=== PATIENT | female | born 1950 | race Caucasian/White ===

== ENCOUNTER → 2018-07-31 10:42 | Outpatient (CLI) | payer MEDICARE, OTHER, SELFPAY ==
--- NOTE | 2018-07-31 | DI.MG.S_ITS ---
BILATERAL DIGITAL SCREENING MAMMOGRAM 3D/2D WITH CAD: 07/31/2018 CLINICAL: Routine screening. Comparison is made to exams dated: 06/01/2017 mammogram, 05/13/2016 mammogram, and 03/26/2015 mammogram - [facility]. There are scattered fibroglandular elements in both breasts. Current study was also evaluated with a Computer Aided Detection (CAD) system. No significant masses, calcifications, or other findings are seen in either breast. There has been no significant interval change. IMPRESSION: NEGATIVE There is no mammographic evidence of malignancy. A 1 year screening mammogram is recommended. This exam was interpreted at Station ID: [id number]. NOTE: For mammograms, a report in lay terms will be sent to the patient. Approximately 15% of breast malignancies will not be visualized mammographically. In the management of a palpable breast mass, a negative mammogram must not discourage biopsy of a clinically suspicious lesion. Electronically Signed By: Sukhi ynag/tiera:07/31/2018 11:29:45 copy to: Len Lewis letter sent: Normal Exam ACR BI-RADS Category 1: Negative 3341F
== END ==
PROVIDERS: PCP Family Medicine; Visit Provider Family Medicine
DX: Z12.31 Encounter for screening mammogram for malignant neoplasm of breast (principal)
CPT/HCPCS: 77063; 77067

== ENCOUNTER → 2019-03-01 08:35 | Outpatient (CLI) | payer MEDICARE, OTHER, SELFPAY ==
[2019-03-01 09:40] LABS: Add Manual Diff / Slide Review NO; Basophils Absolute Auto 100 /uL (0-100); Basophils Percent Auto 0.8 % (0-2); Eosinophils Absolute Auto 200 /uL (0-450); Eosinophils Percent Auto 3.5 % (2-4); Hematocrit 40.1 % (36-46); Hemoglobin 13.7 g/dL (12.0-16.0); Lymphocytes Absolute Auto 2200 /uL (1100-4500); Lymphocytes Percent Auto 31.2 % (25-40); Mean Corpuscular HGB Conc 34.3 % (30-36); Mean Corpuscular Hemoglobin 32.5 PG (26-34); Mean Corpuscular Volume 94.7 fL (80-100); Monocytes Absolute Auto 400 /uL (0-900); Monocytes Percent Auto 5.1 % (3-14); Neutrophils Absolute Auto 4100 /uL (1500-7000); Neutrophils Percent Auto 59.4 % (50-75); Platelet Count 219 X10^3/uL (150-400); Red Blood Cell Count 4.23 X10^6/uL (4.0-5.2); Red Cell Distribution Width 13.7 % (11.6-14.8); White Blood Cell Count 6.9 X10^3/uL (4.5-11.0)
[2019-03-01 09:45] LABS: Alanine Aminotransferase 24 IU/L (<35); Albumin 4.5 g/dL (3.5-5.0); Albumin Globulin Ratio 1.4 (1.0-2.8); Alkaline Phosphatase 92 U/L (38-126); Aspartate Aminotransferase 33 IU/L (14-36); BUN Creatinine Ratio 23.8 (6-22); Bilirubin Total 0.7 mg/dL (0.2-1.3); Blood Urea Nitrogen 19 mg/dL (7-17); Calcium 9.1 mg/dL (8.4-10.2); Carbon Dioxide 27 mmol/L (22-32); Chloride 106 mmol/L (98-107); Cholesterol 185 mg/dL (140-199); Estimated Glomerular Filt Rate > 60.0 mL/min (>60); Globulin 3.2 g/dL (1.7-4.1); Glucose 96 mg/dL (80-110); HDL Cholesterol 58 mg/dL (40-60); HEMOLYSIS 53 (0-50); LDL Cholesterol Calculated 100 mg/dL (<100); Potassium 4.2 mmol/L (3.4-5.1); Sodium 141 mmol/L (137-145); Total Protein 7.7 g/dL (6.3-8.2); Triglycerides 134 mg/dL (35-150)
== END ==
PROVIDERS: PCP Family Medicine; Visit Provider Family Medicine
DX: E03.9 Hypothyroidism, unspecified (principal)
CPT/HCPCS: 36415; 80053; 80061; 84443; 85025

== ENCOUNTER → 2020-01-29 16:47 | Outpatient (CLI) | payer MEDICARE, OTHER, SELFPAY ==
--- NOTE | 2020-01-29 | DI.MG.S_ITS ---
BILATERAL DIGITAL SCREENING MAMMOGRAM 3D/2D WITH CAD: 01/29/2020 CLINICAL: Routine screening. Comparison is made to exams dated: 07/31/2018 mammogram, 06/01/2017 mammogram, and 05/13/2016 mammogram - [facility]. There are scattered fibroglandular elements in both breasts. Current study was also evaluated with a Computer Aided Detection (CAD) system. No significant masses, calcifications, or other findings are seen in either breast. There has been no significant interval change. IMPRESSION: NEGATIVE There is no mammographic evidence of malignancy. A 1 year screening mammogram is recommended. This exam was interpreted at Station ID: [id number]. NOTE: For mammograms, a report in lay terms will be sent to the patient. Approximately 15% of breast malignancies will not be visualized mammographically. In the management of a palpable breast mass, a negative mammogram must not discourage biopsy of a clinically suspicious lesion. Electronically Signed By: Viridiana chase/tiera:02/04/2020 16:04:56 letter sent: Normal Exam ACR BI-RADS Category 1: Negative 3341F
== END ==
PROVIDERS: PCP Family Medicine; Referring Provider Family Medicine; Visit Provider Family Medicine
DX: Z12.31 Encounter for screening mammogram for malignant neoplasm of breast (principal)
CPT/HCPCS: 77063; 77067

== ENCOUNTER → 2020-02-11 08:18 | Outpatient (CLI) | payer MEDICARE, OTHER, SELFPAY ==
[2020-02-11 09:25] LABS: Add Manual Diff / Slide Review NO; Basophils Absolute Auto 100 /uL (0-100); Basophils Percent Auto 0.8 % (0-2); Eosinophils Absolute Auto 100 /uL (0-450); Eosinophils Percent Auto 1.9 % (2-4); Hematocrit 40.5 % (36-46); Hemoglobin 13.5 g/dL (12.0-16.0); Lymphocytes Absolute Auto 2100 /uL (1100-4500); Mean Corpuscular HGB Conc 33.4 % (30-36); Mean Corpuscular Hemoglobin 31.7 PG (26-34); Mean Corpuscular Volume 94.8 fL (80-100); Monocytes Absolute Auto 300 /uL (0-900); Monocytes Percent Auto 5.1 % (3-14); Neutrophils Absolute Auto 3900 /uL (1500-7000); Neutrophils Percent Auto 60.2 % (50-75); Platelet Count 217 X10^3/uL (150-400); Red Blood Cell Count 4.27 X10^6/uL (4.0-5.2); Red Cell Distribution Width 13.9 % (11.6-14.8); White Blood Cell Count 6.5 X10^3/uL (4.5-11.0)
[2020-02-11 09:44] LABS: Cholesterol 189 mg/dL (140-199); HDL Cholesterol 77 mg/dL (40-60); LDL Cholesterol Calculated 92 mg/dL (<100); Triglycerides 101 mg/dL (35-150)
== END ==
PROVIDERS: PCP Family Medicine; Referring Provider Family Medicine; Visit Provider Family Medicine
DX: E03.9 Hypothyroidism, unspecified (principal); Z13.220 Encounter for screening for lipoid disorders; Z13.6 Encounter for screening for cardiovascular disorders
CPT/HCPCS: 36415; 80061; 84443; 85025

== ENCOUNTER → 2020-06-08 13:24 | Outpatient (CLI) | payer MEDICARE, OTHER, SELFPAY ==
[2020-06-08 16:19] LABS: COVID19 -Nasal RAPID Negative (Negative)
== END ==
PROVIDERS: PCP Family Medicine; Visit Provider Physician Assistant
DX: Z01.812 Encounter for preprocedural laboratory examination (principal); Z20.822 Contact with and (suspected) exposure to COVID-19
CPT/HCPCS: 87635; C9803

== ENCOUNTER → 2020-06-09 12:54 | Outpatient (CLI) | payer MEDICARE, OTHER, SELFPAY ==
--- NOTE | 2020-06-09 12:58 | DI.NM.S_ITS ---
PROCEDURE: NM EXERCISE TREADMILL NON NUC COMPARISON: None. INDICATIONS: dyspnea with exertion FINDINGS: Patient exercised for 2 minutes and 50 seconds reaching 124bpm (slightly below target HR of 128bpm). She had dyspnea and chest discomfort at peak exercise. Unfortunately, the equipment malfunctioned and the ECG tracings became unavailable after peak exercise. IMPRESSION: Abnormal non-nuclear stress test with chest pain/dyspnea at peak exercise. ECG tracing unavailable after peak exercise due to equipment malfunction (but no obvious ECG changes at peak exercise). Recommend treadmill nuclear stress test for further evaluation. Dictated by: Chris Harris MD on 06/09/2020 at 16:42 Approved by: Chris Harris MD on 06/09/2020 at 16:44
== END ==
PROVIDERS: PCP Family Medicine; Referring Provider Family Medicine; Visit Provider Family Medicine
DX: R06.00 Dyspnea, unspecified (principal)
CPT/HCPCS: 93017

== ENCOUNTER → 2020-06-24 07:59 | Outpatient (CLI) | payer MEDICARE, OTHER, SELFPAY ==
--- NOTE | 2020-06-25 14:35 | PM.TREADMILL ---
Cardiac Stress Test Report Referral & Results Date Patient Seen: 06/25/20 Indication: Abnormal non nuclear stress test and dyspnea upon exertion Rest ECG: Unremarkable Procedure Note: Today following both written and verbal informed consent the patient was exercised according to a standard Edd protocol patient went for a total of 6 minutes 2 seconds achieving a maximum heart rate of 136 maximum systolic blood pressure of 166. This is approximately 7.0 METS. Exercise was terminated at this point because of targets were met. Patient was also given Cardiolite through a previously started Hep-Lock IV by the diagnostic imaging staff approximately 1 minute prior to the cessation of exercise. There are no ST-T segment changes Rare PVC during exercise Function aerobic impairment rated-25% on the sedentary scale No unusual symptoms from patient Impression: No evidence of ischemia based on usual ECG criteria Better than average exercise capacity Please see perfusion imaging report as well Please note: Actual ECG tracings can be found in the PACS system.
--- NOTE | 2020-06-25 18:22 | DI.NM.S_ITS ---
DATE OF SERVICE: 06/24/2020 PROCEDURE: Exercise perfusion study. INDICATIONS: Dyspnea on exertion. RADIOPHARMACEUTICAL: 26.7 millicurie technetium-99m Myoview IV was injected at stress and 27.0 millicurie technetium-99m Myoview IV was injected at rest. CARDIAC STRESS: The patient underwent exercise perfusion study under the supervision of an attending staff. She walked on Edd protocol for 6 minutes, 02 seconds and achieved 91 percent of target heart rate with normal blood pressure response. Peak blood pressure 166/60. The patient achieved 7 METs of workload and functional aerobic impairment 0 percent on active scale. Baseline rhythm was sinus. During stress, no convincing ischemic changes or significant arrhythmias seen, other than rare PVCs. No obvious symptoms were reported. RAW DATA: There is a large breast shadow seen. GATED STUDY: Resting LV ejection fraction 64 and stress LV ejection fraction 78 percent. Resting end-diastolic volume 91 mL. TID ratio 1.04, which is within normal limits. Lung/heart ratio 0.57, which is abnormal. MYOCARDIAL PERFUSION: Stress supine, resting supine and stress prone images were compared to each other. The stress and resting supine images revealed moderate-size, mild to moderately decreased perfusion of inferoapex, distal anterior wall, which got completely resolved during prone images, suggestive of breast tissue attenuation artifact. No convincing ischemia or infarction pattern seen. CONCLUSION: I will call this study a normal myocardial perfusion study with evidence of breast tissue attenuation artifact, which got resolved during prone images. The patient walked on Edd protocol for 6 minute and 02 seconds. Normal hemodynamic response. 7 METs of workload achieved. No ischemic electrocardiographic changes and no significant arrhythmias seen. The stress left ventricular ejection fraction 78 percent. Lung/heart ratio is 0.57, which is abnormal. Please get a 2D echo to make sure patient does not have any significant diastolic dysfunction or valvular pathology. Kim Francis - MEMO/brigette/roxy doc#: [id number]/job#: [id number] dd: 06/25/2020 17:19:00 dt: 06/25/2020 17:29:00 DICTATING MD/COPIES TO: Duglas Swanson MD COPIES MNE: LANDRY;
== END ==
PROVIDERS: PCP Family Medicine; Referring Provider Family Medicine; Visit Provider Family Medicine
DX: R94.39 Abnormal result of other cardiovascular function study (principal); R06.09 Other forms of dyspnea; Z20.822 Contact with and (suspected) exposure to COVID-19
CPT/HCPCS: 78452; 87635; 93016; 93017; 93018; C9803; A9502

== ENCOUNTER → 2020-06-24 09:40 | Outpatient (CLI) | payer MEDICARE, OTHER, SELFPAY ==
[2020-06-24 11:35] LABS: COVID19 -Nasal RAPID Negative (Negative)
== END ==
PROVIDERS: PCP Family Medicine; Visit Provider Student in an Organized Health Care Education/Training Program
DX: Z20.822 Contact with and (suspected) exposure to COVID-19 (principal)
CPT/HCPCS: 87635

== ENCOUNTER → 2020-07-09 14:48 | Outpatient (CLI) | payer MEDICARE, OTHER, SELFPAY ==
--- NOTE | 2020-07-09 14:51 | DI.ECHO.S_ITS ---
[facility]---------+ [facility] +---------+ : : [address] : : : : [id number] : : : : Phone: [phone]+ Echocardiogram Report + + :Name: OTILIO BURKETT Study Date: 07/09/2020 Height: 66 in : :[facility] ReadingLocation: Weight: 217 lb : : Gender: Female BSA: 2.1 m2 : :: 1950 Age: 70 yrs BP: 142/80 mmHg: :Reason For Study: CONCERN FOR DIASTOLIC DYSFUNCTION : :Ordering Physician: KIAH, : :MICHELLE Performed By: Kelley Canada : :Referring: MICHELLE DUPONT : + + Interpretation Summary Normal sinus rhythm. Normal LV size, wall thickness, wall motion and LV systolic function. EF is 60-65%. Normal diastolic function. Normal chamber sizes. No valvular abnormalities. No prior study available for comparison. Procedure: A two-dimensional transthoracic echocardiogram with color flow and Doppler was performed. The study quality was technically adequate. There is no prior echocardiogram noted for this patient. The patient was in sinus rhythm with heart rates between 57-73 bpm during the exam. Left Ventricle: The left ventricle is normal in size and wall thickness. The ejection fraction is estimated to be 60-65%. Diastolic parameters suggest probable normal left ventricular diastolic function and normal filling pressures. Right Ventricle: The right ventricle is normal in size and function. Atria: The left atrial size is normal. Right atrial size is normal. There is no Doppler evidence for an interatrial shunt. Mitral Valve: The mitral valve is normal in structure and function. There is trace mitral regurgitation. Aortic Valve: The aortic valve is trileaflet. The aortic valve opens well. There is no aortic valve stenosis. No aortic regurgitation is present. Tricuspid Valve: The tricuspid valve is normal in structure and function. There is mild tricuspid regurgitation. The right ventricular systolic pressure is estimated to be at least 27 mmHg based on an estimated right atrial pressure of 3 mm Hg. Pulmonic Valve: The pulmonic valve leaflets are thin and pliable; valve motion is normal. There is no pulmonic valvular regurgitation. Great Vessels: The aortic root is normal size. The dimensions of the ascending aorta are normal. The IVC is of normal diameter and collapses greater than 50% with a sniff. This suggests a low right atrial pressure of 3 mm Hg. Pericardium/ Pleura There is no pericardial effusion. There is no pleural effusion. MMode/2D Measurements & Calculations LVIDd: 5.4 cm LVOT diam: 2.0 cm LVIDs: 3.8 cm Ao root diam: 3.0 cm FS: 28.5 % asc Aorta Diam: 2.8 cm EPSS: 0.75 cm Ao Arch Diam (Prox Trans): 2.7 cm IVSd: 0.64 cm LVPWd: 0.68 cm LV rios. diameter/BSA (cm/m^2): 2.6 LV sys. diameter/BSA (cm/m^2): 1.9 LA A2 area: 18.0 cm2 RA long axis: 4.7 cm LA A4 area: 18.0 cm2 RA area: 13.9 cm2 LA length (vol): 4.7 cm RA vol: 34.8 ml LA vol: 58.4 ml RA : 16.8 ml/m2 LA vol index: 28.2 ml/m2 IVC diam: 0.96 cm RVD1 (basal): 2.9 cm TAPSE: 2.1 cm Doppler Measurements & Calculations Ao V2 max: 126.2 cm/sec LVOT Max Michael: 83.9 cm/sec Ao V2 mean: 89.2 cm/sec LV V1 max P.8 mmHg Ao max P.4 mmHg LV V1 VTI: 19.4 cm Ao mean P.5 mmHg MARK ANTHONY(I,D): 2.3 cm2 Ao V2 VTI: 26.5 cm MARK ANTHONY(V,D): 2.1 cm2 sev ratio: 0.73 MARK ANTHONY indexed to BSA (cm^2/m^2): 1.1 MV E max michael: 78.1 cm/sec TR max michael: 244.2 cm/sec MV A max michael: 100.1 cm/sec TR max P.9 mmHg MV E/A: 0.78 PA V2 max: 90.3 cm/sec Med Peak E' Michael: 9.6 cm/sec PA V2 mean: 66.1 cm/sec E/E' med: 8.1 PA mean P.9 mmHg Lat Peak E' Michael: 9.9 cm/sec PA pr(Accel): 8.8 mmHg E/E' lat: 7.9 E/e' average: 8.0 MV dec time: 0.21 sec SV(LVOT): 60.1 ml Electronically signed by: Betsy Lr M.D. on Reading Physician:07/10/2020 01:02 AM
== END ==
PROVIDERS: PCP Family Medicine; Referring Provider Family Medicine; Visit Provider Family Medicine
DX: I07.1 Rheumatic tricuspid insufficiency (principal); R06.00 Dyspnea, unspecified
CPT/HCPCS: 93306

== ENCOUNTER → 2020-12-01 15:41 | Outpatient (CLI) | payer MEDICARE, OTHER, SELFPAY ==
--- NOTE | 2020-12-01 | DI.RAD.S_ITS ---
PROCEDURE: XR FOOT LT MIN 3V INDICATIONS: LEFT FOOT PAIN TECHNIQUE: 3 views of the foot were acquired. COMPARISON: None. FINDINGS: Bones: Mildly displaced fracture of the base of the 5th proximal phalange. Fracture extends into the 5th MTP joint. Large plantar calcaneal bone spur. Soft tissues: No tibiotalar joint effusion. Achilles tendon appears normal. IMPRESSION: Intra-articular 5th proximal phalange fracture. Dictated by: Joan Traylor MD, PhD on 12/01/2020 at 17:14 Approved by: Joan Traylor MD, PhD on 12/01/2020 at 17:15
== END ==
PROVIDERS: PCP Family Medicine; Referring Provider Podiatrist; Visit Provider Podiatrist
DX: S92.512A Displaced fracture of proximal phalanx of left lesser toe(s), initial encounter for closed fracture (principal); X58.XXXA Exposure to other specified factors, initial encounter
CPT/HCPCS: 73630

== ENCOUNTER → 2021-02-05 10:40 | Outpatient (CLI) | payer MEDICARE, OTHER, SELFPAY ==
--- NOTE | 2021-02-05 | DI.MG.S_ITS ---
BILATERAL DIGITAL SCREENING MAMMOGRAM 3D/2D WITH CAD: 02/05/2021 CLINICAL: Routine screening. Comparison is made to exams dated: 01/29/2020 mammogram, 07/31/2018 mammogram, and 06/01/2017 mammogram - [facility]. The tissue of both breasts is predominantly fatty. Current study was also evaluated with a Computer Aided Detection (CAD) system. No significant masses, calcifications, or other findings are seen in either breast. There has been no significant interval change. IMPRESSION: NEGATIVE There is no mammographic evidence of malignancy. A 1 year screening mammogram is recommended. This exam was interpreted at Station ID: [id number]. NOTE: For mammograms, a report in lay terms will be sent to the patient. Approximately 15% of breast malignancies will not be visualized mammographically. In the management of a palpable breast mass, a negative mammogram must not discourage biopsy of a clinically suspicious lesion. Electronically Signed By: Mary newton/tiera:02/05/2021 17:00:57 letter sent: Normal Exam ACR BI-RADS Category 1: Negative 3341F
== END ==
PROVIDERS: PCP Family Medicine; Referring Provider Family Medicine; Visit Provider Family Medicine
DX: Z12.31 Encounter for screening mammogram for malignant neoplasm of breast (principal)
CPT/HCPCS: 77063; 77067

== ENCOUNTER → 2021-10-28 09:03 | Outpatient (CLI) | payer MEDICARE, OTHER, SELFPAY ==
--- NOTE | 2021-10-28 09:09 | DI.RAD.S_ITS ---
PROCEDURE: XR CHEST 2V INDICATIONS: chronic cough TECHNIQUE: 2 views of the chest were acquired. COMPARISON: None. FINDINGS: Surgical changes and devices: None. Lungs and pleura: Lungs are clear. No pleural effusions or pneumothorax. Mediastinum: Mediastinal contours are normal. Heart size is normal. Bones and chest wall: No suspicious bony abnormalities. Soft tissues appear unremarkable. IMPRESSION: No acute cardiopulmonary abnormalities or focal airspace disease. Dictated by: Sukhi Diana M.D. on 10/28/2021 at 12:00 Approved by: Sukhi Diana M.D. on 10/28/2021 at 12:00
[2021-10-28 11:46] LABS: Add Manual Diff / Slide Review NO; Basophils Absolute Auto 0 /uL (0-100); Basophils Percent Auto 0.6 % (0-2); Eosinophils Absolute Auto 200 /uL (0-450); Eosinophils Percent Auto 3.1 % (2-4); Hematocrit 38.6 % (36-46); Hemoglobin 13.2 g/dL (12.0-16.0); Lymphocytes Absolute Auto 1600 /uL (1100-4500); Lymphocytes Percent Auto 29.5 % (25-40); Mean Corpuscular HGB Conc 34.1 % (30-36); Mean Corpuscular Hemoglobin 33.2 PG (26-34); Mean Corpuscular Volume 97.5 fL (80-100); Monocytes Absolute Auto 400 /uL (0-900); Monocytes Percent Auto 6.7 % (3-14); Neutrophils Absolute Auto 3300 /uL (1500-7000); Neutrophils Percent Auto 60.1 % (50-75); Platelet Count 111 X10^3/uL (150-400); Red Blood Cell Count 3.97 X10^6/uL (4.0-5.2); Red Cell Distribution Width 14.7 % (11.6-14.8); White Blood Cell Count 5.5 X10^3/uL (4.5-11.0)
[2021-10-28 11:51] LABS: Alanine Aminotransferase 57 IU/L (<35); Albumin 3.8 g/dL (3.5-5.0); Albumin Globulin Ratio 1.2 (1.0-2.8); Alkaline Phosphatase 145 U/L (38-126); Aspartate Aminotransferase 71 IU/L (14-36); BUN Creatinine Ratio 23.6 (6-22); Bilirubin Total 0.7 mg/dL (0.2-1.3); Blood Urea Nitrogen 21 mg/dL (7-17); Calcium 8.8 mg/dL (8.4-10.2); Carbon Dioxide 26 mmol/L (22-32); Chloride 108 mmol/L (98-107); Cholesterol 193 mg/dL (140-199); Estimated Glomerular Filt Rate > 60 mL/min (>60); Globulin 3.3 g/dL (1.7-4.1); Glucose 97 mg/dL (80-110); HDL Cholesterol 63 mg/dL (40-60); HEMOLYSIS 15 (0-50); LDL Cholesterol Calculated 112 mg/dL (<100); Potassium 4.3 mmol/L (3.4-5.1); Sodium 141 mmol/L (137-145); Total Protein 7.1 g/dL (6.3-8.2); Triglycerides 90 mg/dL (35-150)
[2021-10-28 16:01] LABS: Free T4, Direct Thyroxine 1.19 ng/dL (0.78-2.19)
== END ==
PROVIDERS: PCP Family Medicine; Referring Provider Family Medicine; Visit Provider Family Medicine
DX: E03.9 Hypothyroidism, unspecified (principal); L30.9 Dermatitis, unspecified; R05.3 Chronic cough
CPT/HCPCS: 36415; 71046; 80053; 80061; 84439; 84443; 85025

== ENCOUNTER → 2021-11-12 13:37 | Outpatient (CLI) | payer MEDICARE, OTHER, SELFPAY ==
--- NOTE | 2021-11-12 13:38 | DI.US.S_ITS ---
PROCEDURE: US ABDOMEN LIMITED INDICATIONS: abnormal liver enzymes TECHNIQUE: Real-time scanning was performed of the abdominal and retroperitoneal organs, with image documentation. COMPARISON: None. FINDINGS: Liver: The liver demonstrates diffusely increased echotexture without focal abnormalities consistent with chronic hepatocellular disease/hepatic steatosis. Visualized main portal vein and hepatic veins appear patent. Gallbladder: Gallbladder is normal in sonographic appearance without gallstones, gallbladder wall thickening, pericholecystic fluid, or abnormal sonographic Stallings's. Biliary ducts: Intrahepatic bile ducts are non-dilated. Extrahepatic bile duct caliber measures 4 mm. Normal is 6-7 mm or less in diameter, or 10 mm or less post-cholecystectomy. Pancreas: Visualized portions of the pancreas are sonographically normal. IVC: Intrahepatic inferior vena cava is patent. Miscellaneous: No free abdominal fluid. IMPRESSION: Hepatic steatosis. Otherwise, unremarkable sonographic evaluation of the right upper quadrant. Dictated by: Sukhi Diana M.D. on 11/12/2021 at 14:35 Approved by: Sukhi Diana M.D. on 11/12/2021 at 14:36
== END ==
PROVIDERS: PCP Family Medicine; Referring Provider Family Medicine; Visit Provider Family Medicine
DX: R74.8 Abnormal levels of other serum enzymes (principal); E03.9 Hypothyroidism, unspecified; K76.0 Fatty (change of) liver, not elsewhere classified
CPT/HCPCS: 76705

== ENCOUNTER → 2021-12-28 08:52 | Outpatient (CLI) | payer MEDICARE, OTHER, SELFPAY ==
[2021-12-28 10:09] LABS: Add Manual Diff / Slide Review NO; Basophils Absolute Auto 0 /uL (0-100); Basophils Percent Auto 0.6 % (0-2); Eosinophils Absolute Auto 100 /uL (0-450); Eosinophils Percent Auto 2.7 % (2-4); Hematocrit 39.9 % (36-46); Hemoglobin 13.5 g/dL (12.0-16.0); Lymphocytes Absolute Auto 1300 /uL (1100-4500); Lymphocytes Percent Auto 26.5 % (25-40); Mean Corpuscular Hemoglobin 33.4 PG (26-34); Mean Corpuscular Volume 98.2 fL (80-100); Monocytes Absolute Auto 300 /uL (0-900); Monocytes Percent Auto 5.8 % (3-14); Neutrophils Absolute Auto 3300 /uL (1500-7000); Neutrophils Percent Auto 64.4 % (50-75); Platelet Count 97 X10^3/uL (150-400); Red Blood Cell Count 4.06 X10^6/uL (4.0-5.2); Red Cell Distribution Width 14.3 % (11.6-14.8); White Blood Cell Count 5.1 X10^3/uL (4.5-11.0)
[2021-12-28 10:37] LABS: Alanine Aminotransferase 60 IU/L (<35); Albumin 3.8 g/dL (3.5-5.0); Albumin Globulin Ratio 1.2 (1.0-2.8); Alkaline Phosphatase 134 U/L (38-126); Aspartate Aminotransferase 70 IU/L (14-36); BUN Creatinine Ratio 22.8 (6-22); Bilirubin Total 0.8 mg/dL (0.2-1.3); Blood Urea Nitrogen 18 mg/dL (7-17); Calcium 8.9 mg/dL (8.4-10.2); Carbon Dioxide 27 mmol/L (22-32); Chloride 107 mmol/L (98-107); Estimated Glomerular Filt Rate > 60 mL/min (>60); Globulin 3.3 g/dL (1.7-4.1); Glucose 96 mg/dL (80-110); HEMOLYSIS < 15 (0-50); Potassium 4.5 mmol/L (3.4-5.1); Sodium 139 mmol/L (137-145); Total Protein 7.1 g/dL (6.3-8.2)
[2021-12-28 11:07] LABS: TSH w/ Reflex to FT4 3.39 uIU/mL (0.47-4.68)
[2021-12-28 11:30] LABS: Hep C Virus Ab w/Reflex Quant NEGATIVE s/c (NEGATIVE)
[2021-12-29 23:36] LABS: HBsAg Screen Negative (Negative); Hepatitis A Antibody IgM Negative (Negative); Hepatitis B Core Antibody IgM Negative (Negative); Hepatitis C Antibody <0.1 s/co ratio (0.0-0.9)
== END ==
PROVIDERS: PCP Family Medicine; Referring Provider Family Medicine; Visit Provider Family Medicine
DX: E03.9 Hypothyroidism, unspecified (principal); R74.8 Abnormal levels of other serum enzymes; R94.5 Abnormal results of liver function studies
CPT/HCPCS: 36415; 80053; 80074; 84443; 85025; 86803

== ENCOUNTER → 2022-03-23 16:14 | Outpatient (CLI) | payer MEDICARE, OTHER, SELFPAY ==
--- NOTE | 2022-03-23 16:16 | DI.MG.S_ITS ---
BILATERAL DIGITAL SCREENING MAMMOGRAM 3D/2D WITH CAD: 03/23/2022 CLINICAL: Routine screening. Comparison is made to exams dated: 02/05/2021 mammogram, 01/29/2020 mammogram, 07/31/2018 mammogram, 06/01/2017 mammogram, and 05/13/2016 mammogram - [facility]. There are scattered areas of fibroglandular density in both breasts (category b / 25%-50% glandular tissue). Current study was also evaluated with a Computer Aided Detection (CAD) system. No significant masses, calcifications, or other findings are seen in either breast. There has been no significant interval change. IMPRESSION: NEGATIVE There is no mammographic evidence of malignancy. A 1 year screening mammogram is recommended. Based on the Tyrer Cuzick model (a risk assessment model) the patient's lifetime risk is 4.1% and her 10 year risk is 2.8%. According to the ACR, ACS, and NCCN guidelines, an annual breast MRI exam along with mammogram is recommended if the patient's lifetime risk is 20% or greater. This exam was interpreted at Station ID: [id number]. NOTE: For mammograms, a report in lay terms will be sent to the patient. Approximately 15% of breast malignancies will not be visualized mammographically. In the management of a palpable breast mass, a negative mammogram must not discourage biopsy of a clinically suspicious lesion. Electronically Signed By: Nigel Vergara M.D., jr/tiera:03/24/2022 13:30:47 letter sent: Normal Exam ACR BI-RADS Category 1: Negative 3341F
== END ==
PROVIDERS: PCP Family Medicine; Referring Provider Family Medicine; Visit Provider Family Medicine
DX: Z12.31 Encounter for screening mammogram for malignant neoplasm of breast (principal)
CPT/HCPCS: 77063; 77067

== ENCOUNTER → 2022-05-02 11:51 | Outpatient (CLI) | payer MEDICARE, OTHER, SELFPAY ==
--- NOTE | 2022-05-02 11:53 | DI.US.S_ITS ---
PROCEDURE: US PERIPH VENOUS LOW EXTREM LT INDICATIONS: Swelling, recent travel, please evaluate for DVT TECHNIQUE: Real-time imaging, as well as color and pulse Doppler interrogation, were performed of the lower extremity deep veins from the inguinal ligament to the popliteal fossa. COMPARISON: None. FINDINGS: The common femoral, femoral and popliteal veins are normally compressible, and free of intraluminal thrombus. Color and pulse Doppler demonstrate normal phasic intraluminal flow. There is normal augmentation response to distal compression maneuver. There is a mild amount of soft tissue edema seen at the level of the ankle. IMPRESSION: Negative for deep venous thrombosis. Dictated by: Masood Nunez M.D. on 05/02/2022 at 11:37 Approved by: Masood Nunez M.D. on 05/02/2022 at 11:37
[2022-05-02 13:12] LABS: Add Manual Diff / Slide Review NO; Basophils Absolute Auto 100 /uL (0-100); Basophils Percent Auto 1.1 % (0-2); Eosinophils Absolute Auto 200 /uL (0-450); Hematocrit 39.8 % (36-46); Hemoglobin 13.4 g/dL (12.0-16.0); Lymphocytes Absolute Auto 1500 /uL (1100-4500); Lymphocytes Percent Auto 26.2 % (25-40); Mean Corpuscular HGB Conc 33.6 % (30-36); Mean Corpuscular Hemoglobin 33.3 PG (26-34); Mean Corpuscular Volume 99.1 fL (80-100); Monocytes Absolute Auto 400 /uL (0-900); Monocytes Percent Auto 6.6 % (3-14); Neutrophils Absolute Auto 3600 /uL (1500-7000); Neutrophils Percent Auto 63.1 % (50-75); Platelet Count 88 X10^3/uL (150-400); Red Blood Cell Count 4.01 X10^6/uL (4.0-5.2); Red Cell Distribution Width 14.5 % (11.6-14.8); White Blood Cell Count 5.7 X10^3/uL (4.5-11.0)
[2022-05-02 13:32] LABS: Albumin 3.6 g/dL (3.5-5.0); Blood Urea Nitrogen 18 mg/dL (7-17); Calcium 8.5 mg/dL (8.4-10.2); Carbon Dioxide 24 mmol/L (22-32); Chloride 106 mmol/L (98-107); Estimated Glomerular Filt Rate > 60 mL/min (>60); Globulin 3.5 g/dL (1.7-4.1); Glucose 91 mg/dL (80-110); Lipase 180 U/L (23-300); Sodium 137 mmol/L (137-145); Total Protein 7.1 g/dL (6.3-8.2)
[2022-05-02 14:16] LABS: HEMOLYSIS 99 (0-50)
[2022-05-02 14:17] LABS: Aspartate Aminotransferase 77 IU/L (14-36); Potassium 4.2 mmol/L (3.4-5.1)
[2022-05-02 14:20] LABS: Alanine Aminotransferase 56 IU/L (<35); Alkaline Phosphatase 141 U/L (38-126)
== END ==
PROVIDERS: PCP Family Medicine; Referring Provider Family Medicine; Visit Provider Family Medicine
DX: M79.89 Other specified soft tissue disorders (principal); R19.5 Other fecal abnormalities; K76.0 Fatty (change of) liver, not elsewhere classified
CPT/HCPCS: 36415; 80053; 83690; 85025; 93971

== ENCOUNTER → 2022-05-09 08:41 | Outpatient (CLI) | payer MEDICARE, OTHER, SELFPAY ==
[2022-05-09 09:51] LABS: Add Manual Diff / Slide Review NO; Basophils Absolute Auto 0 /uL (0-100); Basophils Percent Auto 0.8 % (0-2); Eosinophils Absolute Auto 100 /uL (0-450); Eosinophils Percent Auto 3.2 % (2-4); Hematocrit 38.9 % (36-46); Hemoglobin 13.2 g/dL (12.0-16.0); Lymphocytes Absolute Auto 1300 /uL (1100-4500); Lymphocytes Percent Auto 28.5 % (25-40); Mean Corpuscular Hemoglobin 33.8 PG (26-34); Mean Corpuscular Volume 99.4 fL (80-100); Monocytes Absolute Auto 300 /uL (0-900); Monocytes Percent Auto 5.8 % (3-14); Neutrophils Absolute Auto 2900 /uL (1500-7000); Neutrophils Percent Auto 61.7 % (50-75); Platelet Count 104 X10^3/uL (150-400); Red Blood Cell Count 3.91 X10^6/uL (4.0-5.2); Red Cell Distribution Width 14.4 % (11.6-14.8); White Blood Cell Count 4.6 X10^3/uL (4.5-11.0)
[2022-05-09 10:18] LABS: Lactate Dehydrogenase 204 U/L (120-246)
== END ==
PROVIDERS: PCP Family Medicine; Referring Provider Family Medicine; Visit Provider Family Medicine
DX: D69.6 Thrombocytopenia, unspecified (principal)
CPT/HCPCS: 36415; 83615; 85025

== ENCOUNTER → 2022-05-11 12:07 | Outpatient (CLI) | payer MEDICARE, OTHER, SELFPAY | PROVIDERS: PCP Family Medicine; Referring Provider Family Medicine; Visit Provider Family Medicine | DX: R19.5 Other fecal abnormalities (principal) | CPT/HCPCS: 87045; 87899 ==

== ENCOUNTER → 2022-05-23 15:45 | Outpatient (CLI) | payer MEDICARE, OTHER, SELFPAY ==
--- NOTE | 2022-05-23 15:47 | DI.RAD.S_ITS ---
PROCEDURE: XR LUMBAR SPINE 2-3V INDICATIONS: chronic back pain with left-sided numbness. TECHNIQUE: 3 views of the lumbar spine were acquired. COMPARISON: [facility], , L-SPINE 2-3 VIEWS, 07/13/2015, 10:27. FINDINGS: Bones: 5 [id number] vertebrae are present. There is grade 1 anterolisthesis of L4 on L5 measuring 6 mm and L5 on S1 measuring 6 mm. Grade 1 retrolisthesis of L1 on L2 measuring 5 mm. No vertebral body compression fractures. No suspicious bony lesions. Mild multilevel disc space narrowing. There is prominent facet hypertrophy throughout the lumbar spine. Soft tissues: Overlying bowel gas pattern is normal. No suspicious soft tissue calcifications. IMPRESSION: Moderate multilevel spondylosis and degenerative spondylolisthesis with prominent facet hypertrophy. If indicated clinically, MRI could be performed for further evaluation. Approved by: Jed Love M.D. on 05/23/2022 at 20:16
== END ==
PROVIDERS: PCP Family Medicine; Referring Provider Family Medicine; Visit Provider Family Medicine
DX: M47.816 Spondylosis without myelopathy or radiculopathy, lumbar region (principal); M54.42 Lumbago with sciatica, left side; M43.16 Spondylolisthesis, lumbar region; G89.29 Other chronic pain
CPT/HCPCS: 72100

== ENCOUNTER → 2022-06-01 16:07 | Outpatient (CLI) | payer MEDICARE, OTHER, SELFPAY ==
--- NOTE | 2022-06-01 16:10 | DI.MRI.S_ITS ---
PROCEDURE: MR LUMBAR SPINE WO CON INDICATIONS: chronic back pain with left-sided numbness. TECHNIQUE: Noncontrast sagittal T1 spin echo and T2 fast echo, sagittal STIR, and T2 fast spin echo through the lumbar spine. In cases with scoliosis, additional coronal T2 fast spin echo may be performed. COMPARISON: [facility], CR, XR LUMBAR SPINE 2-3V, 05/23/2022, 15:51. FINDINGS: Image quality: Excellent. Alignment and Curvature: Trace degenerative anterolisthesis of L4 on L5. Bone Marrow: Marrow is of normal overall signal. No acute vertebral body compression fractures. Spinal Cord: Conus medullaris terminates at the L1 level. Visualized cord demonstrates normal signal and size. Paraspinous Soft Tissues: No paravertebral masses. T12-L1: Disc bulge. Mild facet hypertrophy. No canal stenosis or foraminal stenosis. L1-L2: Disc bulge. Facet hypertrophy. No canal stenosis. Moderate left foraminal narrowing with flattening deformity on the exiting left L1 nerve root. L2-L3: Minimal disc bulge. Prominent bilateral facet hypertrophy, left greater than right. Mild central canal stenosis. Oedw-pl-glcmdesw right foraminal narrowing. Moderate to severe left foraminal narrowing with a degree of left foraminal L2 nerve root impingement. L3-L4: Minimal disc bulge. Bilateral prominent facet hypertrophy. No canal stenosis. Mild bilateral foraminal narrowing. L4-L5: Disc bulge. Prominent facet hypertrophy. Epidural lipomatosis contributes to mild canal stenosis. Aphx-nc-xhzfzxgb bilateral foraminal narrowing. L5-S1: Prominent bilateral facet hypertrophy. No central canal stenosis. Moderate right foraminal narrowing with mild flattening deformity on the exiting right L5 nerve root. IMPRESSION: 1. There is prominent multilevel facet arthropathy. 2. At L2-L3, there is mild canal stenosis and moderate to severe left foraminal stenosis. 3. At L4-L5 there is mild canal stenosis. 4. Multilevel foraminal narrowing as described above. Dictated by: Rashid Hargrove M.D. on 06/02/2022 at 8:34 Approved by: Rashid Hargrove M.D. on 06/02/2022 at 8:42
== END ==
PROVIDERS: PCP Family Medicine; Referring Provider Family Medicine; Visit Provider Family Medicine
DX: M47.816 Spondylosis without myelopathy or radiculopathy, lumbar region (principal); M48.061 Spinal stenosis, lumbar region without neurogenic claudication; M48.07 Spinal stenosis, lumbosacral region; M54.42 Lumbago with sciatica, left side; G89.29 Other chronic pain
CPT/HCPCS: 72148

== ENCOUNTER → 2022-06-24 11:24 | Outpatient (CLI) | payer MEDICARE, OTHER, SELFPAY ==
--- NOTE | 2022-06-24 11:25 | DI.RAD.S_ITS ---
PROCEDURE: XR HIP W PEL IF DONE LT 2V INDICATIONS: Left hip pain TECHNIQUE: AP pelvis with lateral view(s) of the left hip(s). COMPARISON: None. FINDINGS: Bones: No fractures or dislocations. Pelvic ring appears intact. No suspicious bony lesions. Lower lumbar spondylosis. Osteoarthritic changes of the left femoroacetabular joint. No significant joint space loss identified. Soft tissues: The visualized bowel gas pattern is normal. No suspicious soft tissue calcifications. IMPRESSION: Left hip without acute fracture or malalignment. Degenerative changes of the left femoroacetabular joint and lower lumbar spine. Dictated by: Sukhi Diana M.D. on 06/24/2022 at 13:36 Approved by: Sukhi Diana M.D. on 06/24/2022 at 13:37
== END ==
PROVIDERS: PCP Family Medicine; Referring Provider Anesthesiology; Visit Provider Anesthesiology
DX: M25.552 Pain in left hip (principal)
CPT/HCPCS: 73502

== ENCOUNTER 2022-07-05 09:07 | Day surgery (SDC) | payer MEDICARE, OTHER, SELFPAY ==
[2022-07-05] VITALS (7 sets, daily range): BP systolic 98–128; BP diastolic 38–62; PULSE 62–71; RESP 11–17; TEMP 35.9–36.2; O2SAT 96–98; BMI 29.8
--- NOTE | 2022-07-05 | PATH_ITS ---
[facility] Accession Number: [id number] No. of containers..02 Tissue . 01 Material submitted: . PART A: colon - RANDOM COLON BIOPSIES PART B: colon - TRANSVERSE COLON POLYP . 01 Diagnosis: A. Random Colon, Biopsies: Colonic mucosa with no diagnostic abnormality. Negative for active, chronic, and microscopic colitis. Negative for dysplasia and malignancy. . B. Transverse Colon, Polyp, Biopsy: Tubular adenoma. [facility] 07/08/2022 1103 Local . 01 Electronically signed: . Yaritza Duque MD, Pathologist NPI- [id number] . 01 Gross description: . Part A: RANDOM COLON BIOPSIES: Received in formalin are 2 fragment(s) of morrow, soft tissue measuring 0.3 x 0.2 x 0.2 cm to 0.6 x 0.2 x 0.2 cm submitted entirely in 1 cassette(s) Part B: TRANSVERSE COLON POLYP: Received in formalin are 3 fragment(s) of morrow, soft tissue measuring 0.1 x 0.1 x 0.1 cm to 0.2 x 0.2 x 0.2 cm submitted entirely in 1 cassette(s) /JESSEE 07/06/20222028 Local . 01 Pathologist provided ICD-10: D12.3 . 01 CPT . 737762, [id number] Specimen Comment: A courtesy copy of this report has been sent to [phone] Performed at: 01 [facility] [address] [place] [address] [id number] MD Charles Panda MD Phone: [phone]
[2022-07-05] MEDS: LACTATED RINGERS 1,000 ML 200 ML IV (09:31)
--- NOTE | 2022-07-05 10:32 | P.HP_ITS ---
History of Present Illness History of Present Illness Date Patient Seen: 07/05/22 Chief complaint: Screening Colonoscopy Narrative: 72-year-old woman with chronic diarrhea for the past 6 months. She is here for diagnostic colonoscopy. Reports that diarrhea became significantly worse after long period of doxycycline treatment for rosacea. She would a colonoscopy 9 years ago which was normal. No family history of colon cancer in first-degree relatives. No abdominal pain nausea vomiting. Occasionally has blood per rectum. [facility] Medical History Ankle pain (~2016) Chicken pox Dyspnea on exertion Dyspnea on exertion Eczema (~2019) Left hip pain Measles Rosacea (~2017) Thrombocytopenia Uterine prolapse Surgical History Anesthesia History of third molar tooth extraction History of vaginal delivery (~1972) Family History Father Diabetes mellitus History of heart disease Diverticulitis Mother Mental health problem Dementia Stroke Brother Diverticulitis Family/Other Brain abscess Social History household members: spouse Smoking Status: Never smoker alcohol intake: current Meds Home Medications and Allergies Home Medications Medication Instructions Recorded Confirmed Type naproxen sodium 220 mg tablet 220 mg PO BIDP ##0 02/07/12 06/21/22 History (Aleve) latanoprost 0.005 % eye drops EYE-BOTH DAILY 01/29/19 06/21/22 History metronidazole 0.75 % lotion 1 applic topical BID 08/17/21 06/21/22 History ruxolitinib 1.5 % topical cream 1 applic topical BID 08/17/21 06/21/22 History (Opzelura) levothyroxine 88 mcg tablet See Rx Instructions .Route 06/13/22 06/21/22 Rx .COMPLEX #90 tabs Allergies Allergy/AdvReac Type Severity Reaction Status Date / Time avocado Allergy Severe swelling Verified 07/05/22 09:39 acetaminophen [ACETAMINOPHEN] Allergy Unknown SEVERE Verified 06/21/22 09:14 GROGGINESS diphenhydramine Allergy Unknown SEVERE Verified 06/21/22 09:14 [DIPHENHYDRAMINE] GROGINESS ibuprofen [IBUPROFEN] Allergy Unknown RASH Verified 06/21/22 09:14 Exam Vital Signs (past 8 hours): - 07/05/22 09:20 Temperature 96.6 F L Pulse Rate 64 Respiratory Rate 17 Blood Pressure 122/62 Pulse Oximetry 98 Oxygen Delivery Method Room Air Oxygen Delivery Method Room Air Narrative Exam Narrative: General adult woman alert oriented no acute distress Assessment & Plan Assessment and plan (1) Loose stools: Status: Acute Assessment & Plan narrative: 72-year-old with chronic diarrhea here for diagnostic colonoscopy. Technical details were discussed. Risks, benefits, alternatives explained. Risks including but not limited to myocardial infarction, aspiration, bleeding, pain, missed lesion, incomplete examination, need for further radiographic studies, colonic perforation, and need for major abdominal surgery were discussed. All questions were answered to their satisfaction, and they are in agreement with this plan.
--- NOTE | 2022-07-05 11:05 | P.OP.COLON_ITS ---
Operative Date/Time/Diagnoses Date of procedure: 07/05/22 Time of procedure: 11:05 Pre-op diagnosis: Diarrhea Post-op diagnosis: other (Colonic polyp x1) Procedure & Clinicians Study performed: Diagnostic colonoscopy Same procedure as scheduled: Yes Indications: 72-year-old woman with 6 months of loose stool here for diagnostic colonoscopy Procedure Notes Procedure in detail: The history and physical was performed/updated and the patient is ASA class is 2. The procedure was discussed in detail with the patient. Potential risks complications including infection, bleeding, missed diagnosis, perforation, need for surgery, and were explained. Their questions were answered and informed consent was obtained. Patient was brought to the procedure room and placed standard monitoring equipment. The patient's vital signs were monitored continuously throughout the entire procedure. Prior to starting time-out was performed. The patient was placed in the left lateral recumbent position. Procedural sedation was administered by anesthesia. Examination began with a thorough inspection of the perianal area there was no evidence of fissures, fistulae, external hemorrhoids or cutaneous malignancy. The colonoscopy scope was then placed into the anal c anal and was advanced to the cecum, which was identified by the ileocecal valve, the appendiceal orifice and the confluence of the taenia. The scope was then slowly withdrawn examining colon thoroughly in all directions, irrigating it of any residual stool. Within the transverse colon a 5 mm polyp was identified and removed with biopsy forceps in its entirety. Random colonic biopsies throughout the colon were performed with forceps. The sigmoid colon was notable for moderate degree diverticulosis. No masses or significant inflammation The patient tolerated the procedure well. They will be discharged once criteria are met. The prep was of good/excellent quality. The withdrawl time was 6 minutes. Specimen(s): other (Transverse colon polyp, random colonic biopsies) Impression: Colonic polyp x1 Post-procedure Recommendations: High fiber diet Plan for aftercare: Follow-up is dependent on pathology findings Disposition: same day surgery
== END 2022-07-05 11:45 | disposition home or self-care (01) ==
PROVIDERS: PCP Family Medicine; Referring Provider Surgery; Visit Provider Surgery
PROC: 0DJD8ZZ Inspection of Lower Intestinal Tract, Via Natural or Artificial Opening Endoscopic (ICD-10-PCS; CPT 45378; principal; 2022-07-05 10:15)
DX: D12.3 Benign neoplasm of transverse colon (principal); K57.30 Diverticulosis of large intestine without perforation or abscess without bleeding; R19.7 Diarrhea, unspecified
CPT/HCPCS: 45380; J2704; J3010

== ENCOUNTER → 2022-07-19 13:43 | Outpatient (CLI) | payer MEDICARE, OTHER, SELFPAY ==
[2022-07-19 15:44] LABS: HEMOLYSIS < 15 (0-50); Iron 75 ug/dL (37-170)
[2022-07-19 15:50] LABS: Alanine Aminotransferase 58 IU/L (<35); Albumin 3.6 g/dL (3.5-5.0); Albumin Globulin Ratio 1.2 (1.0-2.8); Alkaline Phosphatase 176 U/L (38-126); Aspartate Aminotransferase 74 IU/L (14-36); BUN Creatinine Ratio 23.5 (6-22); Bilirubin Total 0.6 mg/dL (0.2-1.3); Blood Urea Nitrogen 19 mg/dL (7-17); C-Reactive Protein Quant 1.2 mg/dL (<1.0); Calcium 8.6 mg/dL (8.4-10.2); Carbon Dioxide 25 mmol/L (22-32); Chloride 109 mmol/L (98-107); Estimated Glomerular Filt Rate > 60 mL/min (>60); Glucose 94 mg/dL (80-110); HEMOLYSIS < 15 (0-50); Sodium 140 mmol/L (137-145); Total Protein 6.6 g/dL (6.3-8.2)
[2022-07-19 15:55] LABS: Percent Iron Saturation 31 % (15-50); Total Iron Binding Capacity 244 ug/dL (265-497); Transferrin 175 mg/dL (206-381)
[2022-07-20 04:01] LABS: Alpha 1 Anti Trypsin 25 mg/dL (101-187); Immunoglobulin A 223 mg/dL (64-422)
[2022-07-20 18:23] LABS: t-Transglutaminase IgA <2 U/mL (0-3)
[2022-07-21 13:09] LABS: Smooth Muscle Antibody 20 Units (0-19)
[2022-07-24 18:22] LABS: ANA Screen, IFA Positive (.)
== END ==
PROVIDERS: PCP Family Medicine; Referring Provider Internal Medicine Gastroenterology; Visit Provider Internal Medicine Gastroenterology
DX: R74.8 Abnormal levels of other serum enzymes (principal); K76.0 Fatty (change of) liver, not elsewhere classified; R19.7 Diarrhea, unspecified
CPT/HCPCS: 36415; 80053; 82103; 82390; 82784; 83516; 83540; 83550; 86038; 86140; 86376

== ENCOUNTER → 2022-07-20 09:50 | Outpatient (CLI) | payer MEDICARE, OTHER, SELFPAY ==
[2022-07-20 12:31] LABS: Adenovirus F 40/41 Not Detected (Not Detect); Astrovirus Not Detected (Not Detect); Campylobacter Not Detected (Not Detect); Clostridium difficile toxin AB Not Detected (Not Detect); Cryptosporidium Not Detected (Not Detect); Cyclospora cayetanensis Not Detected (Not Detect); Entamoeba histolytica Not Detected (Not Detect); Enteroaggregative E.coli Not Detected (Not Detect); Enteropathogenic E.coli Not Detected (Not Detect); Enterotoxigenic E.coli It/st Not Detected (Not Detect); Giardia lamblia Not Detected (Not Detect); Norovirus GI/GII Not Detected (Not Detect); Plesiomonsa shigelloides Not Detected (Not Detect); Rotavirus A Not Detected (Not Detect); Salmonella Not Detected (Not Detect); Sapovirus Not Detected (Not Detect); Shiga-like toxin-prod E.coli Not Detected (Not Detect); Shigella/Enteroinvasive E.coli Not Detected (Not Detect); Vibrio Not Detected (Not Detect); Vibrio cholerae Not Detected (Not Detect); Yersinia enterocolitica Not Detected (Not Detect)
== END ==
PROVIDERS: PCP Family Medicine; Referring Provider Internal Medicine Gastroenterology; Visit Provider Internal Medicine Gastroenterology
DX: R74.8 Abnormal levels of other serum enzymes (principal); K76.0 Fatty (change of) liver, not elsewhere classified; R19.7 Diarrhea, unspecified
CPT/HCPCS: 87507

== ENCOUNTER → 2022-08-22 12:51 | Outpatient (CLI) | payer MEDICARE, OTHER, SELFPAY ==
[2022-08-23 04:46] LABS: Immunoglobulin M, Quantitative 261 mg/dL (26-217)
[2022-08-24 12:36] LABS: Anti Mitochondrial ABY IGG <20.0 Units (0.0-20.0)
== END ==
PROVIDERS: Family Provider Family Medicine; PCP Family Medicine; Referring Provider Internal Medicine Gastroenterology; Visit Provider Internal Medicine Gastroenterology
DX: R74.8 Abnormal levels of other serum enzymes (principal); K76.0 Fatty (change of) liver, not elsewhere classified
CPT/HCPCS: 36415; 82104; 82784; 83516

== ENCOUNTER 2022-09-22 12:30 | Outpatient (RCR) | payer MEDICARE, OTHER, SELFPAY ==
--- NOTE | 2022-09-14 16:35 | PT.OIE ---
Current Diagnoses Other chronic pain (09/14/22) Pain in left hip (09/14/22) Lumbago with sciatica, left side (09/14/22) Past Medical History (Last Reviewed 07/05/22 @ 10:33 by Haroldo Mcmahan MD) Ankle pain (~2016) Chicken pox Dyspnea on exertion Dyspnea on exertion Eczema (~2019) Left hip pain Measles Rosacea (~2017) Thrombocytopenia Uterine prolapse Past Surgical History (Last Reviewed 07/05/22 @ 10:33 by Haroldo Mcmahan MD) Anesthesia History of third molar tooth extraction History of vaginal delivery (~1972) Visit Care Team Role Provider Type Louis Gutierrez MD Family Provider Physician Primary Care Provider Specialty: Family Practice Address: [address] [place] [address], [id number] Email: [email or web address] Robbie Augustin MD Attending Provider Physician Referring Provider Specialty: Anesthesiology Pain Management Address: [address] [place] [address], [id number] Email: [email or web address] Physical Therapy Initial Evaluation PT-OP-A Visit Information Start: 09/13/22 16:51 Freq: Status: Active Protocol: Document 09/14/22 09:36 [facility] (Rec: 09/14/22 10:28 [facility] [id number]) Out-Patient Physical Therapy Visit Information Visit Information Visit Type Initial Evaluation Visit Start Time 09:37 Visit Stop Time 10:25 Total Visit Minutes 48 Visit Number 1 Evaluation Information Evaluation Date 09/14/22 Precautions Precautions severely prolapsed uterus; pessary not effective, has been told not to do pelvic floor exercises as it may worsen PT-OP-B Current Condition Start: 09/13/22 16:51 Freq: Status: Active Protocol: Document 09/14/22 09:36 [facility] (Rec: 09/14/22 10:28 [facility] [id number]) Current Condition History of Current Condition Onset Date 1 year Current Complaints left lateral leg pain. 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 Onset of pain and swelling in left leg. Still gets some swelling left, pain is worst problem. Difficult to sleep. 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 No HEP, doesn't like to even just take walks. Has extreme prolapsed uterus. Also having intestinal issues, has lost over 20 lbs since last December . Has fatty liver. Numbness left foot. Gets cramps in anterior lower legs. Prefers heat to ice. Prior Treatments and Tests MRI: bulging discus, arthritis spine and left. Future Testing and Treatments Planned Sees Dr. Yuen September 27 regarding intestinal issues. Prior Functional Status Baseline Function- ADL's Independent Baseline Function- Mobility Independent Baseline Function- Gait indep Current Functional Impairments (Reported) Functional Limitations- ADL's pain Functional Limitations- Mobility/Gait pain Personal Factors Other Personal Factors That May Effect prolonged sitting daily Therapy/Recovery PT-OP-G Mobility & Gait Start: 09/13/22 16:51 Freq: Status: Active Protocol: Document 09/14/22 09:36 [facility] (Rec: 09/14/22 10:28 [facility] [id number]) OP Gait Assessment Gait Gait Assistance Required: Independent Assistive Devices Assistive Device None Gait Deviations General Gait Pattern Antalgic,Flexed Trunk Factors Limiting Gait Function Factors Limiting Gait Function Pain PT-OP-J Posture/Palpation/Skin Start: 09/13/22 16:51 Freq: Status: Active Protocol: Document 09/14/22 09:36 [facility] (Rec: 09/14/22 10:28 [facility] [id number]) Posture Evaluation Position Standing Head/C-Spine Posture Forward Head L-Spine Posture Increased Lordosis Scapula Posture (L) Protracted,(R) Protracted Arm Posture (L) Internally Rotated,(R) Internally Rotated Pelvis Posture Anteriorly Tilted Hip Posture (L) Externally Rotated,(R) Externally Rotated Palpation Assessment Location lumbar spine Palpation Findings Tenderness IT band Palpation Findings Tenderness PT-OP-K Range of Motion Start: 09/13/22 16:51 Freq: Status: Active Protocol: Document 09/14/22 09:36 [facility] (Rec: 09/14/22 10:28 [facility] [id number]) Lumbar Spine Range of Motion Lumbar Spine Active Flexion 90 Extension 10 Rotation Left 20 Rotation Right 20 Lateral Flexion Left 30 Lateral Flexion Right 30 Hip Goniometric Range of Motion Hip hemal Hip ROM WFL Yes PT-OP-M Strength Start: 09/13/22 16:51 Freq: Status: Active Protocol: Document 09/14/22 09:36 [facility] (Rec: 09/14/22 10:28 [facility] [id number]) Hip Strength Hip Manual Muscle Testing Left Flexion (L2) 4 Good Extension (S1) 3+ Fair+ Abduction 3+ Fair+ Adduction 4 Good External Rotation 3+ Fair+ Internal Rotation 3+ Fair+ Right Flexion (L2) 4 Good Extension (S1) 3+ Fair+ Abduction 4- Good- Adduction 4 Good External Rotation 4- Good- Internal Rotation 4- Good- Knee Strength Knee Manual Muscle Testing Right Flexion (S2) 4+ Good+ Extension (L3) 4+ Good+ Left Flexion (S2) 4 Good Extension (L3) 4 Good Ankle/Foot Strength Ankle and Foot Manual Muscle Testing Right Dorsiflexion (L4) 4+ Good+ Plantarflexion (S1) 4+ Good+ Left Dorsiflexion (L4) 4+ Good+ Plantarflexion (S1) 4+ Good+ PT-OP-Q Treatments Start: 09/13/22 16:51 Freq: Status: Active Protocol: Document 09/14/22 09:36 [facility] (Rec: 09/14/22 17:58 [facility] [id number]) Self-Care/Home Management Treatment Education Patient Education Body Mechanics,Joint Protection,Posture Other Education bed positioning; issued IPA handout need for improved sitting alignment in chair, more frequent change in positions, use swivel on chair instead of twisting and reaching PT-OP-T Assessment and Plan Start: 09/13/22 16:51 Freq: Status: Active Protocol: Document 09/14/22 09:36 [facility] (Rec: 09/14/22 18:06 [facility] [id number]) Physical Therapy Assessment Rehab Potential Rehabilitation Potential Good Evaluation Complexity Number of Personal Factors/Comorbidities 1-2 Number of Body Systems Impaired 3 Clinical Presentation at Evaluation Evolving Impairments Impairments Activity Tolerance,Pain, Strength Goals Three Impairment 25% impairment in left LE function per LEFS Senior Care Goal (LTG) Decrease reported score to no greater than 10% as measure of improved activity tolerance and function LTG Duration 11/15/22 Two Impairment weakness core and LE's left greater than right Short Term Goal (STG) patient to be instructed in HEP to address above impairments for improved function STG Duration 10/15/22 Senior Care Goal (LTG) patient to be independent and compliant to HEP and demonstrate improved strength to at least 4+/5 all muscle groups for improved functional activity tolerance LTG Duration 11/15/22 One Impairment interrupted sleep due to left lateral LE pain Short Term Goal (STG) Patient to be instructed in correct body positioning and support strategies for back and hip protection STG Duration 10/04/22 Surface Grinder Goal (LTG) Patient to report able to sleep through the night without being woken due to pain LTG Duration 11/15/22 Assessment Summary Assessment Patient presented to PT with c /o lateral left LE pain since April 2022. Has had history of back pain and leg pain intermittantly over the years. Had MRI which showed: 1. There is prominent multilevel facet arthropathy. 2. At L2-L3, there is mild canal stenosis and moderate to severe left foraminal stenosis. 3. At L4-L5 there is mild canal stenosis. 4. Multilevel foraminal narrowing x-ray of pelvis and left hip showed degenerative changes of the left femoroacetabular joint and lower lumbar spine. Patient dysfunction complicated by severely prolapsed uterus for which she has had unsuccessful conservative treatment, states she has been told not to do any kegel or other tightening exercises. We discussed her habitual posture likely contributing to her pain which is sitting at her desk all day bent over and the body mechanics she uses at her desk often reaching for objects Also instructed her in correct alignment and support when sleeping for back and hip protection. Patient reported decrease in pain with manual lumbar traction Physical Therapy Plan Frequency and Duration Frequency of Treatment 2x/Week Duration of treatment (weeks) 8 Plan of Care Start Date 09/14/22 Plan of Care End Date 11/15/22 Therapeutic Interventions Therapeutic Interventions Home Exercise Program,Manual Therapy,Patient/Caregiver Education,Self-Care/Home Management,Soft Tissue Mobilization,Taping, Therapeutic Activities, Therapeutic Exercises Modalities Electric Stimulation,Hot Packs ,Infrared Therapy, Iontophoresis,Traction- Mechanical,Ultrasound Next Visit Focus/Plan Next Note Type Treatment Note Next Visit Plan review sleeping positions as instructed, body mechanics especially related to sitting at desk, need for frequent change in positions. Ther ex for core strengthening , LE strengthening. Manual traction.
--- NOTE | 2022-09-14 16:36 | PT.OPPOC ---
Physical, Occupational & Speech Therapy At [facility] Current Diagnoses Other chronic pain (09/14/22) Pain in left hip (09/14/22) Lumbago with sciatica, left side (09/14/22) Visit Care Team Role Provider Type Louis Gutierrez MD Family Provider Physician Primary Care Provider Specialty: Family Practice Address: [address] [place] [address], [id number] Email: [email or web address] Robbie Augustin MD Attending Provider Physician Referring Provider Specialty: Anesthesiology Pain Management Address: [address] [place] [address], [id number] Email: [email or web address] Plan Of Care PT-OP-T Assessment and Plan Start: 09/13/22 16:51 Freq: Status: Active Protocol: Document 09/14/22 09:36 [facility] (Rec: 09/14/22 18:06 [facility] [id number]) Physical Therapy Assessment Rehab Potential Rehabilitation Potential Good Evaluation Complexity Number of Personal Factors/Comorbidities 1-2 Number of Body Systems Impaired 3 Clinical Presentation at Evaluation Evolving Impairments Impairments Activity Tolerance,Pain, Strength Goals Three Impairment 25% impairment in left LE function per LEFS Breeder [employer] Service Technician Goal (LTG) Decrease reported score to no greater than 10% as measure of improved activity tolerance and function LTG Duration 11/15/22 Two Impairment weakness core and LE's left greater than right Short Term Goal (STG) patient to be instructed in HEP to address above impairments for improved function STG Duration 10/15/22 Breeder Hen Service Technician Goal (LTG) patient to be independent and compliant to HEP and demonstrate improved strength to at least 4+/5 all muscle groups for improved functional activity tolerance LTG Duration 11/15/22 One Impairment interrupted sleep due to left lateral LE pain Short Term Goal (STG) Patient to be instructed in correct body positioning and support strategies for back and hip protection STG Duration 10/04/22 Intermediate Goal (LTG) Patient to report able to sleep through the night without being woken due to pain LTG Duration 11/15/22 Assessment Summary Assessment Patient presented to PT with c /o lateral left LE pain since April 2022. Has had history of back pain and leg pain intermittantly over the years. Had MRI which showed: 1. There is prominent multilevel facet arthropathy. 2. At L2-L3, there is mild canal stenosis and moderate to severe left foraminal stenosis. 3. At L4-L5 there is mild canal stenosis. 4. Multilevel foraminal narrowing x-ray of pelvis and left hip showed degenerative changes of the left femoroacetabular joint and lower lumbar spine. Patient dysfunction complicated by severely prolapsed uterus for which she has had unsuccessful conservative treatment, states she has been told not to do any kegel or other tightening exercises. We discussed her habitual posture likely contributing to her pain which is sitting at her desk all day bent over and the body mechanics she uses at her desk often reaching for objects Also instructed her in correct alignment and support when sleeping for back and hip protection. Patient reported decrease in pain with manual lumbar traction Physical Therapy Plan Frequency and Duration Frequency of Treatment 2x/Week Duration of treatment (weeks) 8 Plan of Care Start Date 09/14/22 Plan of Care End Date 11/15/22 Therapeutic Interventions Therapeutic Interventions Home Exercise Program,Manual Therapy,Patient/Caregiver Education,Self-Care/Home Management,Soft Tissue Mobilization,Taping, Therapeutic Activities, Therapeutic Exercises Modalities Electric Stimulation,Hot Packs ,Infrared Therapy, Iontophoresis,Traction- Mechanical,Ultrasound Next Visit Focus/Plan Next Note Type Treatment Note Next Visit Plan review sleeping positions as instructed, body mechanics especially related to sitting at desk, need for frequent change in positions. Ther ex for core strengthening , LE strengthening. Manual traction. Plan of Care Dates Plan of Care Start Date 09/14/22 Plan of Care End Date 11/15/22 Electronically Signed by: Val Loyola, PT 09/15/22 [id number] If you are in agreement with this Plan of Care, please return a signed and dated copy. I have reviewed this Plan of Care and certify that the skilled therapy services above are required to meet the patient?s needs. Physician Signature Date Printed Name and Credentials Clinical Instructor Signature Printed Name and Credentials
--- NOTE | 2022-09-19 10:25 | PT.OTN ---
Current Diagnoses Other chronic pain (09/19/22) Pain in left hip (09/19/22) Lumbago with sciatica, left side (09/19/22) Physical Therapy Treatment Note PT-OP-A Visit Information Start: 09/13/22 16:51 Freq: Status: Active Protocol: Document 09/19/22 09:36 [facility]AK (Rec: 09/19/22 10:25 [facility] [id number]) Out-Patient Physical Therapy Visit Information Visit Information Visit Type Treatment Note Visit Start Time 09:37 Visit Stop Time 01:25 Total Visit Minutes 48 Visit Number 2 Evaluation Information Evaluation Date 09/14/22 Precautions Precautions severely prolapsed uterus; pessary not effective, has been told not to do pelvic floor exercises without manual internal manip of uterus; doesn't do I'm lazy. PT-OP-B Current Condition Start: 09/13/22 16:51 Freq: Status: Active Protocol: Document 09/19/22 09:36 SAK (Rec: 09/19/22 10:25 [facility] [id number]) Current Condition History of Current Condition Onset Date 1 year Current Complaints left lateral leg pain. 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 Onset of pain and swelling in left leg. Still gets some swelling left, pain is worst problem. Difficult to sleep. 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 No HEP, doesn't like to even just take walks. Has extreme prolapsed uterus. Also having intestinal issues, has lost over 20 lbs since last December . Has fatty liver. Numbness left foot. Gets cramps in anterior lower legs. Prefers heat to ice. Prior Treatments and Tests MRI: bulging discus, arthritis spine and left. Future Testing and Treatments Planned Sees Dr. Yuen September 27 regarding intestinal issues. PT-OP-C Subjective Start: 09/13/22 16:51 Freq: Status: Active Protocol: Document 09/19/22 09:36 SAK (Rec: 09/19/22 10:25 [facility] [id number]) OP-PT Subjective Patient Comments Patient Comments working in yard did ok, vacuuming painful. Has been trying to position herself in bed as instructed. Using heat. Using swivel mechanism of her chair instead of twisting and getting up from her chair more often. Patient reports was told previously not to do any core tightening ex without manual moving uterus up internally. PT-OP-G Mobility & Gait Start: 09/13/22 16:51 Freq: Status: Active Protocol: Document 09/14/22 09:36 [facility] (Rec: 09/14/22 10:28 [facility] [id number]) OP Gait Assessment Gait Gait Assistance Required: Independent Assistive Devices Assistive Device None Gait Deviations General Gait Pattern Antalgic,Flexed Trunk Factors Limiting Gait Function Factors Limiting Gait Function Pain PT-OP-J Posture/Palpation/Skin Start: 09/13/22 16:51 Freq: Status: Active Protocol: Document 09/14/22 09:36 [facility] (Rec: 09/14/22 10:28 [facility] [id number]) Posture Evaluation Position Standing Head/C-Spine Posture Forward Head L-Spine Posture Increased Lordosis Scapula Posture (L) Protracted,(R) Protracted Arm Posture (L) Internally Rotated,(R) Internally Rotated Pelvis Posture Anteriorly Tilted Hip Posture (L) Externally Rotated,(R) Externally Rotated Palpation Assessment Location lumbar spine Palpation Findings Tenderness IT band Palpation Findings Tenderness PT-OP-K Range of Motion Start: 09/13/22 16:51 Freq: Status: Active Protocol: Document 09/14/22 09:36 [facility] (Rec: 09/14/22 10:28 [facility] [id number]) Lumbar Spine Range of Motion Lumbar Spine Active Flexion 90 Extension 10 Rotation Left 20 Rotation Right 20 Lateral Flexion Left 30 Lateral Flexion Right 30 Hip Goniometric Range of Motion Hip hemal Hip ROM WFL Yes PT-OP-M Strength Start: 09/13/22 16:51 Freq: Status: Active Protocol: Document 09/14/22 09:36 [facility] (Rec: 09/14/22 10:28 [facility] [id number]) Hip Strength Hip Manual Muscle Testing Left Flexion (L2) 4 Good Extension (S1) 3+ Fair+ Abduction 3+ Fair+ Adduction 4 Good External Rotation 3+ Fair+ Internal Rotation 3+ Fair+ Right Flexion (L2) 4 Good Extension (S1) 3+ Fair+ Abduction 4- Good- Adduction 4 Good External Rotation 4- Good- Internal Rotation 4- Good- Knee Strength Knee Manual Muscle Testing Right Flexion (S2) 4+ Good+ Extension (L3) 4+ Good+ Left Flexion (S2) 4 Good Extension (L3) 4 Good Ankle/Foot Strength Ankle and Foot Manual Muscle Testing Right Dorsiflexion (L4) 4+ Good+ Plantarflexion (S1) 4+ Good+ Left Dorsiflexion (L4) 4+ Good+ Plantarflexion (S1) 4+ Good+ PT-OP-Q Treatments Start: 09/13/22 16:51 Freq: Status: Active Protocol: Document 09/19/22 09:36 [facility] (Rec: 09/19/22 10:25 [facility] [id number]) Cardio Equipment Recumbent Stepper (Sci-Fit) Duration (Minutes) 6 Resistance 1 Seat Position 9 Other postural cues Gym Equipment Therapeutic Ball core Exercise Details ant/pos tilt, lateral tilt, circles, bounce Ball Size/Color green 65 cm Body Position sit Reps/Duration 8 min Comments mirror for visual feedback Sport Cord green Exercise Details fwd Cord/Resistance green Reps/Duration 10x Comments cues for core postural alignment, core stab for functional tasks around the home (ie vacuuming) Manual Therapy Treatment Manual Traction Lumbar Body Position Hooklying Reps/Duration 5 min Comments good feedback response Self-Care/Home Management Treatment Education Patient Education Body Mechanics,Joint Protection,Posture Other Education vacuuming technique for back protection, correct lifting technique PT-OP-R Modalities Start: 09/13/22 16:51 Freq: Status: Active Protocol: Document 09/19/22 09:36 [facility] (Rec: 09/19/22 10:25 [facility] [id number]) Hot Pack/Cold Pack Treatment Hot Pack Location l/s, ITB left Patient Position Hooklying Treatment Duration (minutes) 15 Patient Tolerance Good PT-OP-T Assessment and Plan Start: 09/13/22 16:51 Freq: Status: Active Protocol: Document 09/19/22 09:36 [facility] (Rec: 09/19/22 10:25 [facility] [id number]) Physical Therapy Assessment Goals Three Impairment 25% impairment in left LE function per LEFS Mds Rn Goal (LTG) Decrease reported score to no greater than 10% as measure of improved activity tolerance and function LTG Duration 11/15/22 Two Impairment weakness core and LE's left greater than right Short Term Goal (STG) patient to be instructed in HEP to address above impairments for improved function STG Duration 10/15/22 Mds Rn Goal (LTG) patient to be independent and compliant to HEP and demonstrate improved strength to at least 4+/5 all muscle groups for improved functional activity tolerance LTG Duration 11/15/22 One Impairment interrupted sleep due to left lateral LE pain Short Term Goal (STG) Patient to be instructed in correct body positioning and support strategies for back and hip protection STG Duration 10/04/22 Jail Goal (LTG) Patient to report able to sleep through the night without being woken due to pain LTG Duration 11/15/22 Assessment Summary Assessment Patient demonstrating improving postural awareness, body mechanics at desk. Needed further instruction for vacuuming and other daily tasks. Physical Therapy Plan Frequency and Duration Frequency of Treatment 2x/Week Duration of treatment (weeks) 8 Plan of Care Start Date 09/14/22 Plan of Care End Date 11/15/22 Therapeutic Interventions Therapeutic Interventions Home Exercise Program,Manual Therapy,Patient/Caregiver Education,Self-Care/Home Management,Soft Tissue Mobilization,Taping, Therapeutic Activities, Therapeutic Exercises Modalities Electric Stimulation,Hot Packs ,Infrared Therapy, Iontophoresis,Traction- Mechanical,Ultrasound Next Visit Focus/Plan Next Visit Plan Manual traction Further exercise discussion after consulting with women's health PT; consider transferring care if available to women's health specialist
--- NOTE | 2022-09-22 16:54 | PT.OTN ---
Current Diagnoses Other chronic pain (09/22/22) Pain in left hip (09/22/22) Lumbago with sciatica, left side (09/22/22) Physical Therapy Treatment Note PT-OP-A Visit Information Start: 09/13/22 16:51 Freq: Status: Active Protocol: Document 09/22/22 12:28 [facility] (Rec: 09/22/22 13:14 [facility] [id number]) Out-Patient Physical Therapy Visit Information Visit Information Visit Type Treatment Note Visit Start Time 12:32 Visit Stop Time 13:25 Total Visit Minutes 53 Visit Number 3 Evaluation Information Evaluation Date 09/14/22 Precautions Precautions severely prolapsed uterus; pessary not effective, has been told not to do pelvic floor exercises without manual internal manip of uterus; doesn't do I'm lazy. PT-OP-B Current Condition Start: 09/13/22 16:51 Freq: Status: Active Protocol: Document 09/22/22 12:28 [facility] (Rec: 09/22/22 13:14 [facility] [id number]) Current Condition History of Current Condition Onset Date 1 year Current Complaints left lateral leg pain. 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 Onset of pain and swelling in left leg. Still gets some swelling left, pain is worst problem. Difficult to sleep. 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 No HEP, doesn't like to even just take walks. Has extreme prolapsed uterus. Also having intestinal issues, has lost over 20 lbs since last December . Has fatty liver. Numbness left foot. Gets cramps in anterior lower legs. Prefers heat to ice. Prior Treatments and Tests MRI: bulging discus, arthritis spine and left. Future Testing and Treatments Planned Sees Dr. Yuen September 27 regarding intestinal issues. PT-OP-C Subjective Start: 09/13/22 16:51 Freq: Status: Active Protocol: Document 09/22/22 12:28 [facility] (Rec: 09/22/22 13:14 [facility] [id number]) OP-PT Subjective Patient Comments Patient Comments Liver biopsy next week, will need to cancel PT appt. Back pain improved. Didn't hurt with gardening. Continues to be more aware of posture and body mechanics while working at [employer]. PT-OP-G Mobility & Gait Start: 09/13/22 16:51 Freq: Status: Active Protocol: Document 09/14/22 09:36 [facility] (Rec: 09/14/22 10:28 [facility] [id number]) OP Gait Assessment Gait Gait Assistance Required: Independent Assistive Devices Assistive Device None Gait Deviations General Gait Pattern Antalgic,Flexed Trunk Factors Limiting Gait Function Factors Limiting Gait Function Pain PT-OP-J Posture/Palpation/Skin Start: 09/13/22 16:51 Freq: Status: Active Protocol: Document 09/14/22 09:36 [facility] (Rec: 09/14/22 10:28 [facility] [id number]) Posture Evaluation Position Standing Head/C-Spine Posture Forward Head L-Spine Posture Increased Lordosis Scapula Posture (L) Protracted,(R) Protracted Arm Posture (L) Internally Rotated,(R) Internally Rotated Pelvis Posture Anteriorly Tilted Hip Posture (L) Externally Rotated,(R) Externally Rotated Palpation Assessment Location lumbar spine Palpation Findings Tenderness IT band Palpation Findings Tenderness PT-OP-K Range of Motion Start: 09/13/22 16:51 Freq: Status: Active Protocol: Document 09/14/22 09:36 [facility] (Rec: 09/14/22 10:28 [facility] [id number]) Lumbar Spine Range of Motion Lumbar Spine Active Flexion 90 Extension 10 Rotation Left 20 Rotation Right 20 Lateral Flexion Left 30 Lateral Flexion Right 30 Hip Goniometric Range of Motion Hip hemal Hip ROM WFL Yes PT-OP-M Strength Start: 09/13/22 16:51 Freq: Status: Active Protocol: Document 09/14/22 09:36 [facility] (Rec: 09/14/22 10:28 [facility] [id number]) Hip Strength Hip Manual Muscle Testing Left Flexion (L2) 4 Good Extension (S1) 3+ Fair+ Abduction 3+ Fair+ Adduction 4 Good External Rotation 3+ Fair+ Internal Rotation 3+ Fair+ Right Flexion (L2) 4 Good Extension (S1) 3+ Fair+ Abduction 4- Good- Adduction 4 Good External Rotation 4- Good- Internal Rotation 4- Good- Knee Strength Knee Manual Muscle Testing Right Flexion (S2) 4+ Good+ Extension (L3) 4+ Good+ Left Flexion (S2) 4 Good Extension (L3) 4 Good Ankle/Foot Strength Ankle and Foot Manual Muscle Testing Right Dorsiflexion (L4) 4+ Good+ Plantarflexion (S1) 4+ Good+ Left Dorsiflexion (L4) 4+ Good+ Plantarflexion (S1) 4+ Good+ PT-OP-Q Treatments Start: 09/13/22 16:51 Freq: Status: Active Protocol: Document 09/22/22 12:28 [facility] (Rec: 09/22/22 13:14 [facility] [id number]) Cardio Equipment Recumbent Stepper (Sci-Fit) Duration (Minutes) 9 Resistance 1.5 Seat Position 9 Other postural cues Therapeutic Exercises Supine Exercises pec stretch Reps/Minutes 2x30 Sitting Exercises trunk rotation Reps/Minutes 2x10 overhead stretch Reps/Minutes 2x10 pec stretch Reps/Minutes 2x10 shoulder rolls Reps/Minutes 10x Manual Therapy Treatment Soft Tissue Mobilization l/s paraspinals Mobilization Type Myofascial Release,Strumming Intensity/Depth mod Body Position 10 min Self-Care/Home Management Treatment Education Patient Education Body Mechanics,Joint Protection,Posture Other Education updated HEP for desk stretches , continue emphasis on standing up from desk more frequently. Advised per PT consultation with women's health specialist to consider different pessary (patient reports has tried every kind there is), do core ex while supine with hips elevated on wedge. PT-OP-R Modalities Start: 09/13/22 16:51 Freq: Status: Active Protocol: Document 09/22/22 12:28 [facility] (Rec: 09/22/22 13:14 [facility] [id number]) Hot Pack/Cold Pack Treatment Hot Pack Location l/s, ITB left Patient Position Hooklying Treatment Duration (minutes) 15 Patient Tolerance Good PT-OP-T Assessment and Plan Start: 09/13/22 16:51 Freq: Status: Active Protocol: Document 09/22/22 12:28 [facility] (Rec: 09/22/22 13:14 [facility] [id number]) Physical Therapy Assessment Goals Three Impairment 25% impairment in left LE function per LEFS Mcfp Goal (LTG) Decrease reported score to no greater than 10% as measure of improved activity tolerance and function LTG Duration 11/15/22 Two Impairment weakness core and LE's left greater than right Short Term Goal (STG) patient to be instructed in HEP to address above impairments for improved function STG Duration 10/15/22 Mcfp Goal (LTG) patient to be independent and compliant to HEP and demonstrate improved strength to at least 4+/5 all muscle groups for improved functional activity tolerance LTG Duration 11/15/22 One Impairment interrupted sleep due to left lateral LE pain Short Term Goal (STG) Patient to be instructed in correct body positioning and support strategies for back and hip protection STG Duration 10/04/22 Mcfp Goal (LTG) Patient to report able to sleep through the night without being woken due to pain LTG Duration 11/15/22 Assessment Summary Assessment Good improvement in back pain, patient receptive to seated chair stretches to do frequently throughout the day. Has stopped vacuuming at this time. Physical Therapy Plan Frequency and Duration Frequency of Treatment 2x/Week Duration of treatment (weeks) 8 Plan of Care Start Date 09/14/22 Plan of Care End Date 11/15/22 Therapeutic Interventions Therapeutic Interventions Home Exercise Program,Manual Therapy,Patient/Caregiver Education,Self-Care/Home Management,Soft Tissue Mobilization,Taping, Therapeutic Activities, Therapeutic Exercises Modalities Electric Stimulation,Hot Packs ,Infrared Therapy, Iontophoresis,Traction- Mechanical,Ultrasound Next Visit Focus/Plan Next Visit Plan Manual traction Continue gentle ther ex, patient education regarding back protection with functional tasks
--- NOTE | 2022-12-26 08:34 | PT.OPDS ---
Current Diagnoses Other chronic pain (09/22/22) Pain in left hip (09/22/22) Lumbago with sciatica, left side (09/22/22) Visit Care Team Role Provider Type Louis Gutierrez MD Family Provider Physician Primary Care Provider Specialty: Family Practice Address: [address] [place] [address], [address] Email: [email or web address] Robbie Augustin MD Attending Provider Physician Referring Provider Specialty: Anesthesiology Interventional Radiology Pain Management Address: [facility] [place] [place], [address] Email: [email or web address] Visit Number Visit Number 3 Discharge Summary PT-OP-B Current Condition Start: 09/13/22 16:51 Freq: Status: Active Protocol: Document 09/22/22 12:28 SAK (Rec: 09/22/22 13:14 [facility] [id number]) Current Condition History of Current Condition Onset Date 1 year Current Complaints left lateral leg pain. 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 Onset of pain and swelling in left leg. Still gets some swelling left, pain is worst problem. Difficult to sleep. 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 No HEP, doesn't like to even just take walks. Has extreme prolapsed uterus. Also having intestinal issues, has lost over 20 lbs since last December . Has fatty liver. Numbness left foot. Gets cramps in anterior lower legs. Prefers heat to ice. Prior Treatments and Tests MRI: bulging discus, arthritis spine and left. Future Testing and Treatments Planned Sees Dr. Yuen September 27 regarding intestinal issues. PT-OP-C Subjective Start: 09/13/22 16:51 Freq: Status: Active Protocol: Document 09/22/22 12:28 SAK (Rec: 09/22/22 13:14 SAK [id number]) OP-PT Subjective Patient Comments Patient Comments Liver biopsy next week, will need to cancel PT appt. Back pain improved. Didn't hurt with gardening. 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 PT-OP-G Mobility & Gait Start: 09/13/22 16:51 Freq: Status: Active Protocol: Document 09/14/22 09:36 [facility] (Rec: 09/14/22 10:28 [facility] [id number]) OP Gait Assessment Gait Gait Assistance Required: Independent Assistive Devices Assistive Device None Gait Deviations General Gait Pattern Antalgic,Flexed Trunk Factors Limiting Gait Function Factors Limiting Gait Function Pain PT-OP-J Posture/Palpation/Skin Start: 09/13/22 16:51 Freq: Status: Active Protocol: Document 09/14/22 09:36 [facility] (Rec: 09/14/22 10:28 [facility] [id number]) Posture Evaluation Position Standing Head/C-Spine Posture Forward Head L-Spine Posture Increased Lordosis Scapula Posture (L) Protracted,(R) Protracted Arm Posture (L) Internally Rotated,(R) Internally Rotated Pelvis Posture Anteriorly Tilted Hip Posture (L) Externally Rotated,(R) Externally Rotated Palpation Assessment Location lumbar spine Palpation Findings Tenderness IT band Palpation Findings Tenderness PT-OP-K Range of Motion Start: 09/13/22 16:51 Freq: Status: Active Protocol: Document 09/14/22 09:36 [facility] (Rec: 09/14/22 10:28 [facility] [id number]) Lumbar Spine Range of Motion Lumbar Spine Active Flexion 90 Extension 10 Rotation Left 20 Rotation Right 20 Lateral Flexion Left 30 Lateral Flexion Right 30 Hip Goniometric Range of Motion Hip hemal Hip ROM WFL Yes PT-OP-M Strength Start: 09/13/22 16:51 Freq: Status: Active Protocol: Document 09/14/22 09:36 [facility] (Rec: 09/14/22 10:28 [facility] [id number]) Hip Strength Hip Manual Muscle Testing Left Flexion (L2) 4 Good Extension (S1) 3+ Fair+ Abduction 3+ Fair+ Adduction 4 Good External Rotation 3+ Fair+ Internal Rotation 3+ Fair+ Right Flexion (L2) 4 Good Extension (S1) 3+ Fair+ Abduction 4- Good- Adduction 4 Good External Rotation 4- Good- Internal Rotation 4- Good- Knee Strength Knee Manual Muscle Testing Right Flexion (S2) 4+ Good+ Extension (L3) 4+ Good+ Left Flexion (S2) 4 Good Extension (L3) 4 Good Ankle/Foot Strength Ankle and Foot Manual Muscle Testing Right Dorsiflexion (L4) 4+ Good+ Plantarflexion (S1) 4+ Good+ Left Dorsiflexion (L4) 4+ Good+ Plantarflexion (S1) 4+ Good+ PT-OP-T Assessment and Plan Start: 09/13/22 16:51 Freq: Status: Active Protocol: Document 12/26/22 08:33 JOHANNA (Rec: 12/26/22 08:33 [facility] [id number]) Physical Therapy Plan Discharge Physical Therapy Discharge Reasons Patient Request
== END 2022-12-28 10:23 | disposition home or self-care (01) ==
LOC: PHYS 12:30
PROVIDERS: Absent Provider Family Medicine; Family Provider Family Medicine; PCP Family Medicine; Referring Provider Anesthesiology; Visit Provider Anesthesiology
DX: M54.42 Lumbago with sciatica, left side (principal); G89.29 Other chronic pain; M25.552 Pain in left hip
CPT/HCPCS: 97110; 97140; 97162; 97535

== ENCOUNTER → 2022-10-19 08:34 | Outpatient (CLI) | payer MEDICARE, OTHER, SELFPAY ==
--- NOTE | 2022-10-19 | DI.US.S_ITS ---
PROCEDURE: US ABDOMEN LIMITED INDICATIONS: ASCITES TECHNIQUE: Real-time scanning was performed of the abdominal and retroperitoneal organs, with image documentation. COMPARISON: [facility], , US ABDOMEN LIMITED, 11/12/2021, 13:50. FINDINGS: There is small amount of free abdominal fluid. IMPRESSION: Small amount of ascites. Paracentesis was not performed. Dictated by: Cristhian Flores M.D. on 10/19/2022 at 12:01 Approved by: Cristhian Flores M.D. on 10/19/2022 at 12:02
== END ==
PROVIDERS: Family Provider Family Medicine; PCP Family Medicine; Referring Provider Internal Medicine Gastroenterology; Visit Provider Internal Medicine Gastroenterology
DX: R18.8 Other ascites (principal)
CPT/HCPCS: 76705

== ENCOUNTER → 2022-10-20 14:38 | Outpatient (CLI) | payer MEDICARE, OTHER, SELFPAY ==
[2022-10-20 15:12] LABS: Add Manual Diff / Slide Review NO; Basophils Absolute Auto 0 /uL (0-100); Basophils Percent Auto 0.8 % (0-2); Eosinophils Absolute Auto 100 /uL (0-450); Eosinophils Percent Auto 2.3 % (2-4); Hematocrit 36.4 % (36-46); Hemoglobin 12.3 g/dL (12.0-16.0); Lymphocytes Absolute Auto 1900 /uL (1100-4500); Lymphocytes Percent Auto 32.5 % (25-40); Mean Corpuscular HGB Conc 33.8 % (30-36); Mean Corpuscular Hemoglobin 33.7 PG (26-34); Mean Corpuscular Volume 99.9 fL (80-100); Monocytes Absolute Auto 400 /uL (0-900); Monocytes Percent Auto 6.9 % (3-14); Neutrophils Absolute Auto 3400 /uL (1500-7000); Neutrophils Percent Auto 57.5 % (50-75); Platelet Count 115 X10^3/uL (150-400); Red Blood Cell Count 3.64 X10^6/uL (4.0-5.2); Red Cell Distribution Width 14.9 % (11.6-14.8); White Blood Cell Count 5.9 X10^3/uL (4.5-11.0)
[2022-10-20 15:25] LABS: Alanine Aminotransferase 50 IU/L (<35); Albumin 3.2 g/dL (3.5-5.0); Alkaline Phosphatase 196 U/L (38-126); Aspartate Aminotransferase 74 IU/L (14-36); Blood Urea Nitrogen 23 mg/dL (7-17); Calcium 8.5 mg/dL (8.4-10.2); Carbon Dioxide 25 mmol/L (22-32); Chloride 107 mmol/L (98-107); Estimated Glomerular Filt Rate > 60 mL/min (>60); Globulin 3.3 g/dL (1.7-4.1); Glucose 102 mg/dL (80-110); HEMOLYSIS < 15 (0-50); Potassium 3.6 mmol/L (3.4-5.1); Sodium 138 mmol/L (137-145); Total Protein 6.5 g/dL (6.3-8.2)
[2022-10-21 09:09] LABS: Hepatitis A Antibody Total Positive (Negative); Hepatitis B Surf AB Quant <3.1 mIU/mL (Immunity>9.9)
[2022-10-22 00:38] LABS: Hepatitis B Core Antibody Negative (Negative)
== END ==
PROVIDERS: Family Provider Family Medicine; PCP Family Medicine; Referring Provider Internal Medicine Gastroenterology; Visit Provider Internal Medicine Gastroenterology
DX: R18.8 Other ascites (principal); E88.01 Alpha-1-antitrypsin deficiency; R79.9 Abnormal finding of blood chemistry, unspecified; R74.8 Abnormal levels of other serum enzymes; K76.0 Fatty (change of) liver, not elsewhere classified; R19.7 Diarrhea, unspecified
CPT/HCPCS: 36415; 80053; 85025; 86704; 86706; 86708

== ENCOUNTER → 2022-10-25 09:22 | Outpatient (CLI) | payer MEDICARE, OTHER, SELFPAY ==
--- NOTE | 2022-10-25 10:53 | DI.CT.S_ITS ---
PROCEDURE: CT CHEST ABD PEL W CON INDICATIONS: ASCITES / FATTY LIVER / DIARRHEA TECHNIQUE: After the administration of oral and intravenous contrast, axial sections acquired from the supraclavicular neck to the pubic symphysis. Coronal and sagittal reformats were performed. For radiation dose reduction, the following was used: automated exposure control, adjustment of mA and/or kV according to patient size. COMPARISON: None. FINDINGS: Image quality: Excellent. CHEST: Lower Neck: No enlarged lymph nodes. Thyroid: Within normal limits. Axillae: No enlarged lymph nodes. Chest Wall: Unremarkable. Lungs and Airways: Mild smooth interstitial thickening in the lung apices. Mild emphysema. Mild bronchial thickening. 2 mm solid nodule, left lower lobe (series 3, image 178). Pleura: Small pleural effusions. Heart: Heart size is normal. No pericardial effusion. Thoracic Vessels: The aorta and pulmonary arteries demonstrate normal size. Mediastinum and Sheron: No enlarged lymph nodes. Calcified mediastinal node. Esophagus: No wall thickening. No hiatal hernia. ABDOMEN: Liver: Cirrhotic liver morphology. Patent vasculature. Suboptimal contrast timing for evaluation of parasellar carcinoma. Calcified granuloma. Gallbladder: Diffuse wall thickening. No distension. Biliary ducts: Unremarkable. Pancreas: Unremarkable. Spleen: Enlarged. Calcified granuloma. Heterogeneous enhancement. Adrenal Glands: Unremarkable. Kidneys and Ureters: Unremarkable. Stomach and Bowel: Colonic diverticulosis without evidence of diverticulitis. Normal colonic caliber. Appendix not visualized. Peritoneum: Moderate volume ascites. No free air. Ventral Wall: No hernia. Abdominal Nodes: No retroperitoneal or mesenteric adenopathy by size criteria. Vessels: Aorta and inferior vena cava are normal in size. Portosystemic collaterals. PELVIS: Pelvic Organs: Atrophic ovaries. Bladder: Unremarkable. Pelvic Nodes: No enlarged lymph nodes. Miscellaneous: No inguinal hernias are seen. Bones: Grade 1 anterolisthesis of L4 on L5 secondary to facet arthrosis. IMPRESSION: 1. Cirrhotic liver morphology. Portosystemic collaterals and moderate volume ascites, indicating portal hypertension. 2. Small pleural effusions. 3. 2 mm solid nodule in the left lower lobe. Consider 12 month follow-up if at high risk for developing lung cancer, per Fleischner Society guidelines. 4. Mild bronchial thickening and smooth interstitial thickening, suggestive of mild pulmonary edema. Dictated by: Nazario Carrera M.D. on 10/25/2022 at 13:54 Approved by: Nazario Carrera M.D. on 10/25/2022 at 13:58
== END ==
PROVIDERS: Family Provider Family Medicine; PCP Family Medicine; Referring Provider Internal Medicine Gastroenterology; Visit Provider Internal Medicine Gastroenterology
DX: J90 Pleural effusion, not elsewhere classified (principal); R18.8 Other ascites; R91.1 Solitary pulmonary nodule; K57.90 Diverticulosis of intestine, part unspecified, without perforation or abscess without bleeding; E88.01 Alpha-1-antitrypsin deficiency; R79.9 Abnormal finding of blood chemistry, unspecified; R74.8 Abnormal levels of other serum enzymes; K76.0 Fatty (change of) liver, not elsewhere classified; R19.7 Diarrhea, unspecified; M43.16 Spondylolisthesis, lumbar region; M47.816 Spondylosis without myelopathy or radiculopathy, lumbar region
CPT/HCPCS: 71260; 74177

== ENCOUNTER → 2022-11-08 15:08 | Outpatient (CLI) | payer MEDICARE, OTHER, SELFPAY ==
[2022-11-08 16:27] LABS: BUN Creatinine Ratio 21.3 (6-22); Blood Urea Nitrogen 19 mg/dL (7-17); Calcium 8.5 mg/dL (8.4-10.2); Carbon Dioxide 28 mmol/L (22-32); Chloride 105 mmol/L (98-107); Estimated Glomerular Filt Rate > 60 mL/min (>60); Glucose 96 mg/dL (80-110); HEMOLYSIS < 15 (0-50); Sodium 136 mmol/L (137-145)
== END ==
PROVIDERS: Family Provider Family Medicine; PCP Family Medicine; Referring Provider Internal Medicine Gastroenterology; Visit Provider Internal Medicine Gastroenterology
DX: R18.8 Other ascites (principal); R79.9 Abnormal finding of blood chemistry, unspecified; R74.8 Abnormal levels of other serum enzymes
CPT/HCPCS: 36415; 80048

== ENCOUNTER → 2022-11-10 14:45 | Outpatient (CLI) | payer MEDICARE, OTHER, SELFPAY | PROVIDERS: Family Provider Family Medicine; PCP Family Medicine; Referring Provider Internal Medicine; Visit Provider Internal Medicine | DX: J43.9 Emphysema, unspecified (principal); J98.8 Other specified respiratory disorders | CPT/HCPCS: 94060; 94726; 94729 ==

== ENCOUNTER → 2022-11-15 11:06 | Outpatient (CLI) | payer MEDICARE, OTHER, SELFPAY ==
[2022-11-15 13:04] LABS: BUN Creatinine Ratio 25.3 (6-22); Blood Urea Nitrogen 20 mg/dL (7-17); Calcium 8.6 mg/dL (8.4-10.2); Carbon Dioxide 26 mmol/L (22-32); Chloride 106 mmol/L (98-107); Estimated Glomerular Filt Rate > 60 mL/min (>60); Glucose 93 mg/dL (80-110); HEMOLYSIS < 15 (0-50); Potassium 3.8 mmol/L (3.4-5.1); Sodium 138 mmol/L (137-145)
== END ==
PROVIDERS: Family Provider Family Medicine; PCP Family Medicine; Referring Provider Internal Medicine Gastroenterology; Visit Provider Internal Medicine Gastroenterology
DX: R18.8 Other ascites (principal); R79.9 Abnormal finding of blood chemistry, unspecified; R74.8 Abnormal levels of other serum enzymes; E88.01 Alpha-1-antitrypsin deficiency; R06.09 Other forms of dyspnea
CPT/HCPCS: 36415; 80048; 99215

== ENCOUNTER → 2022-12-23 14:11 | Outpatient (CLI) | payer MEDICARE, OTHER, SELFPAY ==
--- NOTE | 2022-12-23 | DI.US.S_ITS ---
PROCEDURE: US ABDOMEN COMPLETE INDICATIONS: CIRRHOSIS OF LIVER/ASCITIES TECHNIQUE: Real-time scanning was performed of the abdominal and retroperitoneal organs, with image documentation. Color and pulse Doppler interrogation was also performed of the hepatic and splenic vessels, or of the lesion of interest. COMPARISON: [facility], [place], US ABDOMEN LIMITED, 10/19/2022, 8:45. FINDINGS: Liver: The liver demonstrates surface nodularity and coarse echotexture. Doppler: The main portal vein is patent with hepatopedal flow. Gallbladder: The gallbladder wall measures 3 mm in diameter. A 4 mm gallbladder polyp is noted. Biliary ducts: No intrahepatic biliary ductal dilatation. Extrahepatic bile duct is 4 mm in caliber. Normal biliary caliber is 6-7 mm or less, or 10 mm or less post-cholecystectomy. Spleen: The spleen measures 14.0 cm in length. Pancreas: Visualized portions of the pancreas appear normal. Kidneys: Both kidneys are normal in size and echotexture. Right kidney measures 10.3 cm long; left kidney measures 10.1 cm long. No hydronephrosis or nephrolithiasis. No solid renal masses. Aorta: Visualized abdominal aorta is normal in caliber at less than 3 cm. The distal aorta is not visualized due to bowel gas. Iliacs: Proximal common iliac arteries are normal in caliber at less than 2.5 cm. IVC: Intrahepatic inferior vena cava is patent. Miscellaneous: Ascites is present in all 4 quadrants. IMPRESSION: 1. Moderate to large volume ascites. 2. Coarse hepatic echotexture and surface nodularity consistent with cirrhotic transformation. 3. 4 mm gallbladder polyp. No cholelithiasis or findings to suggest choledocholithiasis or acute cholecystitis. Dictated by: Viridiana Pang M.D. on 12/23/2022 at 15:56 Approved by: Viridiana Pang M.D. on 12/23/2022 at 16:00
== END ==
PROVIDERS: Family Provider Family Medicine; PCP Family Medicine; Referring Provider Internal Medicine Gastroenterology; Visit Provider Internal Medicine Gastroenterology
DX: R18.8 Other ascites (principal); K74.60 Unspecified cirrhosis of liver; K82.4 Cholesterolosis of gallbladder
CPT/HCPCS: 76700

== ENCOUNTER 2022-12-26 11:47 | Day surgery (SDC) | payer MEDICARE, OTHER, SELFPAY ==
[2022-12-26 12:19] VITALS: BMI 31.3
[2022-12-26 12:23] VITALS: BP 125/74; PULSE 71; RESP 16; TEMP 36.4; O2SAT 100
[2022-12-26] MEDS: LACTATED RINGERS 1,000 ML 42 ML IV (12:34)
--- NOTE | 2022-12-26 14:08 | P.HP_ITS ---
History of Present Illness History of Present Illness Date Patient Seen: 12/26/22 Time Patient Seen: 14:08 Chief complaint: EGD Narrative: Here for EGD to screen for varices. She is also been experiencing postprandial abdominal distention bloating. I reviewed her recent follow-up notes in GI clinic Dr. Bridges. The updated ultrasound from 3 days ago is noted. She had moderate ascites and hepatic morphology suggestive of cirrhosis. [facility] Medical History Natlq-5-qodifnscybl deficiency Cirrhosis Left hip pain Thrombocytopenia Dyspnea on exertion Rosacea (~2017) Ankle pain (~2016) Measles Chicken pox Dyspnea on exertion Eczema (~2019) Surgical History Anesthesia History of vaginal delivery (~1972) History of third molar tooth extraction Family History Father Diabetes mellitus History of heart disease Diverticulitis Mother Mental health problem Dementia Stroke Brother Diverticulitis Family/Other Brain abscess Social History household members: spouse Smoking Status: Never smoker alcohol intake: current Meds Home Medications and Allergies Home Medications Medication Instructions Recorded Confirmed Type naproxen sodium 220 mg tablet 220 mg PO BIDP PRN Pain (Scale 02/07/12 12/26/22 History (Aleve) Score 1-3) ##0 latanoprost 0.005 % eye drops 1 drp EYE-BOTH DAILY 01/29/19 12/26/22 History metronidazole 0.75 % lotion 1 applic topical BID 08/17/21 12/26/22 History ruxolitinib 1.5 % topical cream 1 applic topical BID 08/17/21 12/26/22 History (Opzelura) furosemide 20 mg tablet 20 mg PO BID 12/26/22 12/26/22 History levothyroxine 88 mcg tablet 88 mcg PO DAILY 12/26/22 12/26/22 History spironolactone 50 mg tablet 50 mg PO DAILY 12/26/22 12/26/22 History Allergies Allergy/AdvReac Type Severity Reaction Status Date / Time avocado Allergy Severe swelling Verified 12/26/22 12:15 acetaminophen [ACETAMINOPHEN] Allergy Unknown SEVERE Verified 12/26/22 12:15 GROGGINESS diphenhydramine Allergy Unknown SEVERE Verified 12/26/22 12:15 [DIPHENHYDRAMINE] GROGINESS ibuprofen [IBUPROFEN] Allergy Unknown RASH Verified 12/26/22 12:15 Review of Systems Review of Systems ROS: Yes All systems reviewed with the patient and are negative except as otherwise documented Exam Vital Signs (past 8 hours): - 12/26/22 12:23 Temperature 97.5 F L Pulse Rate 71 Respiratory Rate 16 Blood Pressure 125/74 Pulse Oximetry 100 Oxygen Delivery Method Room Air Oxygen Delivery Method Room Air Const General: cooperative HENMT Head: normal to inspection Eyes General: appearance normal, both eyes and all related structures Neck Neck: normal visual inspection Chest Chest: normal inspection of the chest Resp Effort & Inspection: normal respiratory effort Cardio Rate: regular rate GI Inspection: normal to inspection Skin General: no rashes or lesions noted Neuro General: patient alert and patient awake Extrem General: normal to inspection and no pedal edema Psych Appearance: grossly normal Assessment & Plan Assessment & Plan narrative: 72-year-old female with alpha 1 antitrypsin deficiency and underlying cirrhosis. EGD is pursued for variceal screening and to evaluate for postprandial bloating.
--- NOTE | 2022-12-26 14:11 | PM.PREOP ---
Pre-operative Note Interval Note History & Physical reviewed/Exam performed by Physician: Yes Changes to H&P: No ASA Class (for procedural sedation): III
--- NOTE | 2022-12-26 15:07 | PM.OP.EGD ---
Operative Date/Time/Diagnoses Date of procedure: 12/26/22 Time of procedure: 15:07 Pre-op diagnosis: Cirrhosis postprandial bloating Post-op diagnosis: same Procedure & Clinicians Study performed: EGD Same procedure as scheduled: Yes Indications: Cirrhosis and postprandial bloating Surgeon: Nigel Sandy Procedure Notes SCOAP/Timeout: Done Procedure in detail: After the risks and benefits were explained, written and verbal informed consent was obtained. The patient was brought into the procedure room and placed into the left lateral decubitus position. Please see anesthesia notes for sedation details. The scope was introduced into the mouth through the bite block and advanced under direct visualization to the 2nd portion of the duodenum. The scope was slowly withdrawn carefully examining the mucosa for any defects or lesions. Retroflexed views were accomplished in the stomach. The stomach was decompressed, the scope was then removed from the patient who tolerated the procedure well. Sedation minutes: 5 Specimen(s): none sent Complications: none Impression: 1. Duodenum: No pathology from the bulb through to the 2nd portion. 2. Stomach: No ulcers no mass lesions and no varices identified throughout. Patient had diffuse portal gastropathy. 3. Esophagus: The squamocolumnar junction correlated with the top of the gastric folds. GEJ was at approximately 32 cm from the incisors. No acute erosive changes no strictures no mass lesions. The patient had evidence of very small grade 1 varices that fully flattened out with air insufflation. No stigmata or high-risk features. Endoscopic diagnosis 1. Grade 1 varices 2. Portal gastropathy Post-procedure Plan for aftercare: 1. Repeat EGD for surveillance 1 year. 2. Continue 2 g sodium diet and diuretic therapy for control of ascites. 3. Follow up GI clinic Disposition: PACU
[2022-12-26 15:12] VITALS: BP 96/63; PULSE 85; RESP 19; TEMP 36.4; O2SAT 94
[2022-12-26 15:19] VITALS: BP 104/65; PULSE 80; RESP 21; O2SAT 97
[2022-12-26 15:25] VITALS: BP 108/64; PULSE 75; RESP 14; TEMP 36.4; O2SAT 99
== END 2022-12-26 15:35 | disposition home or self-care (01) ==
PROVIDERS: Family Provider Family Medicine; PCP Family Medicine; Referring Provider Internal Medicine Gastroenterology; Visit Provider Internal Medicine Gastroenterology
PROC: 0DJ08ZZ Inspection of Upper Intestinal Tract, Via Natural or Artificial Opening Endoscopic (ICD-10-PCS; CPT 43235; principal; 2022-12-26 13:00)
DX: K74.60 Unspecified cirrhosis of liver (principal); R14.0 Abdominal distension (gaseous); E88.01 Alpha-1-antitrypsin deficiency; I85.10 Secondary esophageal varices without bleeding; K76.6 Portal hypertension; K31.89 Other diseases of stomach and duodenum
CPT/HCPCS: 43235

== ENCOUNTER → 2023-01-03 09:43 | Outpatient (CLI) | payer MEDICARE, OTHER, SELFPAY ==
[2023-01-03 11:12] LABS: BUN Creatinine Ratio 26.5 (6-22); Blood Urea Nitrogen 22 mg/dL (7-17); Calcium 8.9 mg/dL (8.4-10.2); Carbon Dioxide 29 mmol/L (22-32); Chloride 103 mmol/L (98-107); Estimated Glomerular Filt Rate > 60 mL/min (>60); Glucose 98 mg/dL (80-110); HEMOLYSIS 33 (0-50); Potassium 4.5 mmol/L (3.4-5.1); Sodium 136 mmol/L (137-145)
== END ==
PROVIDERS: Family Provider Family Medicine; PCP Family Medicine; Referring Provider Internal Medicine Gastroenterology; Visit Provider Internal Medicine Gastroenterology
DX: R18.8 Other ascites (principal)
CPT/HCPCS: 36415; 80048

== ENCOUNTER → 2023-01-13 10:58 | Outpatient (CLI) | payer MEDICARE, OTHER, SELFPAY ==
[2023-01-13 12:30] LABS: BUN Creatinine Ratio 25.3 (6-22); Blood Urea Nitrogen 25 mg/dL (7-17); Carbon Dioxide 30 mmol/L (22-32); Chloride 102 mmol/L (98-107); Estimated Glomerular Filt Rate > 60 mL/min (>60); Glucose 99 mg/dL (80-110); HEMOLYSIS < 15 (0-50); Potassium 4.1 mmol/L (3.4-5.1); Sodium 135 mmol/L (137-145)
== END ==
PROVIDERS: Family Provider Family Medicine; PCP Family Medicine; Referring Provider Internal Medicine Gastroenterology; Visit Provider Internal Medicine Gastroenterology
DX: R18.8 Other ascites (principal)
CPT/HCPCS: 36415; 80048

== ENCOUNTER → 2023-01-20 14:16 | Outpatient (CLI) | payer MEDICARE, OTHER, SELFPAY ==
--- NOTE | 2023-01-20 14:17 | DI.US.S_ITS ---
PROCEDURE: US PELVIC LIMITED INDICATIONS: Rule out endometrial thickening prior to colpocleisis TECHNIQUE: Real-time transabdominal scanning was performed of the pelvic organs, with image documentation. COMPARISON: None. FINDINGS: Uterus: Uterus is retroverted and normal in size at 8.3 x 4.3 x 4.3 cm. The myometrium is homogeneous. The endometrium measures 5 mm combined thickness. No focal uterine mass Ovaries: The right ovary measures 2.9 x 2.1 x 2.2 cm, with a calculated ovarian volume of 7.3 cc. The left ovary is not seen. No adnexal masses are seen. Other: Moderate ascites. IMPRESSION: 1. No acute process. 2. Ascites. We strive to produce accurate, complete, and clear reports of imaging services. To assist us in improving patient care, this report was composed using standard report templates and voice recognition software. Therefore, it may contain abnormal punctuation, insertions and/or omissions. Occasional wrong-word or sound-alike substitutions may occur. Though we review the report and make efforts to correct it, we do recommend that the report be read carefully in proper context to recognize any text inaccuracies. Dictated by: Chloe Conde M.D. on 01/20/2023 at 16:17 Approved by: Chloe Conde M.D. on 01/20/2023 at 16:18
== END ==
PROVIDERS: Family Provider Family Medicine; PCP Family Medicine; Referring Provider Obstetrics & Gynecology; Visit Provider Obstetrics & Gynecology
DX: N81.3 Complete uterovaginal prolapse (principal); R18.8 Other ascites
CPT/HCPCS: 76857

== ENCOUNTER → 2023-01-25 11:38 | Outpatient (CLI) | payer MEDICARE, OTHER, SELFPAY ==
[2023-01-25 13:48] LABS: BUN Creatinine Ratio 24.5 (6-22); Blood Urea Nitrogen 26 mg/dL (7-17); Calcium 9.3 mg/dL (8.4-10.2); Carbon Dioxide 29 mmol/L (22-32); Chloride 100 mmol/L (98-107); Estimated Glomerular Filt Rate 56 mL/min (>60); Glucose 100 mg/dL (80-110); HEMOLYSIS < 15 (0-50); Potassium 3.7 mmol/L (3.4-5.1); Sodium 135 mmol/L (137-145)
== END ==
PROVIDERS: Family Provider Family Medicine; PCP Family Medicine; Referring Provider Internal Medicine Gastroenterology; Visit Provider Internal Medicine Gastroenterology
DX: K74.60 Unspecified cirrhosis of liver (principal); R18.8 Other ascites
CPT/HCPCS: 36415; 80048

== ENCOUNTER → 2023-02-02 10:06 | Outpatient (CLI) | payer MEDICARE, OTHER, SELFPAY ==
[2023-02-02 11:20] LABS: BUN Creatinine Ratio 28.6 (6-22); Blood Urea Nitrogen 28 mg/dL (7-17); Calcium 8.8 mg/dL (8.4-10.2); Carbon Dioxide 28 mmol/L (22-32); Chloride 101 mmol/L (98-107); Estimated Glomerular Filt Rate > 60 mL/min (>60); Glucose 115 mg/dL (80-110); HEMOLYSIS 32 (0-50); Potassium 4.1 mmol/L (3.4-5.1); Sodium 133 mmol/L (137-145)
== END ==
PROVIDERS: Family Provider Family Medicine; PCP Family Medicine; Referring Provider Internal Medicine Gastroenterology; Visit Provider Internal Medicine Gastroenterology
DX: K74.60 Unspecified cirrhosis of liver (principal); R18.8 Other ascites
CPT/HCPCS: 36415; 80048

== ENCOUNTER → 2023-02-09 08:12 | Outpatient (CLI) | payer MEDICARE, OTHER, SELFPAY ==
--- NOTE | 2023-02-09 | DI.US.S_ITS ---
PROCEDURE: US ABDOMEN COMPLETE INDICATIONS: Unspecified cirrhosis of liver Other ascites TECHNIQUE: Real-time scanning was performed of the abdominal and retroperitoneal organs, with image documentation. COMPARISON: [facility], , US ABDOMEN COMPLETE, 12/23/2022, 14:22. FINDINGS: Liver: Liver echotexture is coarsened with capsular micro nodularity consistent with history of cirrhosis. Portal vein patent. Overall hepatic size unremarkable. Perihepatic ascites noted. Gallbladder: Sonolucent without evidence cholelithiasis, gallbladder wall thickening or pericholecystic fluid. No sonographic Stallings sign. Small gallbladder wall polyp measures 4.6 mm Biliary ducts: Intrahepatic bile ducts are non-dilated. Extrahepatic bile duct caliber measures 4 mm. Normal is 6-7 mm or less in diameter, or 10 mm or less post-cholecystectomy. Pancreas: Visualized portions of the pancreas are sonographically normal. Spleen: Splenomegaly, 13.1 cm Kidneys: Kidneys are normal in size and echotexture. No hydronephrosis or nephrolithiasis. No solid masses. Aorta: Visualized aorta is normal in caliber at less than 3 cm. Iliacs: Proximal common iliac arteries are normal in caliber at less than 2.5 cm. IVC: Intrahepatic inferior vena cava is patent. Miscellaneous: Moderate abdominal ascites IMPRESSION: Hepatic cirrhosis, splenomegaly, moderate ascites. Portal vein patency. Approved by: Bernard Bridges M.D. on 02/09/2023 at 12:51
[2023-02-09 11:38] LABS: Add Manual Diff / Slide Review NO; Basophils Absolute Auto 100 /uL (0-100); Basophils Percent Auto 0.9 % (0-2); Eosinophils Absolute Auto 200 /uL (0-450); Eosinophils Percent Auto 2.8 % (2-4); Hematocrit 39.6 % (36-46); Hemoglobin 13.5 g/dL (12.0-16.0); Lymphocytes Absolute Auto 1500 /uL (1100-4500); Lymphocytes Percent Auto 25.1 % (25-40); Mean Corpuscular Hemoglobin 34.1 PG (26-34); Mean Corpuscular Volume 100.4 fL (80-100); Monocytes Absolute Auto 300 /uL (0-900); Monocytes Percent Auto 5.4 % (3-14); Neutrophils Absolute Auto 4000 /uL (1500-7000); Neutrophils Percent Auto 65.8 % (50-75); Platelet Count 157 X10^3/uL (150-400); Red Blood Cell Count 3.95 X10^6/uL (4.0-5.2); Red Cell Distribution Width 14.6 % (11.6-14.8); White Blood Cell Count 6.1 X10^3/uL (4.5-11.0)
[2023-02-09 11:47] LABS: INR 1.2 (0.9-1.3); Prothrombin Time 13.3 SECONDS (9.4-12.5)
[2023-02-09 11:55] LABS: Alanine Aminotransferase 37 IU/L (<35); Albumin 3.6 g/dL (3.5-5.0); Albumin Globulin Ratio 0.9 (1.0-2.8); Alkaline Phosphatase 130 U/L (38-126); Aspartate Aminotransferase 61 IU/L (14-36); BUN Creatinine Ratio 26.1 (6-22); Bilirubin Total 1.8 mg/dL (0.2-1.3); Blood Urea Nitrogen 29 mg/dL (7-17); Calcium 9.3 mg/dL (8.4-10.2); Carbon Dioxide 28 mmol/L (22-32); Chloride 100 mmol/L (98-107); Estimated Glomerular Filt Rate 53 mL/min (>60); Globulin 3.9 g/dL (1.7-4.1); Glucose 140 mg/dL (80-110); HEMOLYSIS < 15 (0-50); Potassium 4.5 mmol/L (3.4-5.1); Sodium 137 mmol/L (137-145); Total Protein 7.5 g/dL (6.3-8.2)
[2023-02-10 07:10] LABS: Alpha Fetoprotein 4.7 ng/mL (0.0-9.2)
== END ==
PROVIDERS: Family Provider Family Medicine; PCP Family Medicine; Referring Provider Internal Medicine Gastroenterology; Visit Provider Internal Medicine Gastroenterology
DX: K74.60 Unspecified cirrhosis of liver (principal); R18.8 Other ascites; R74.8 Abnormal levels of other serum enzymes; R16.1 Splenomegaly, not elsewhere classified
CPT/HCPCS: 36415; 76700; 80053; 82105; 85025; 85610

== ENCOUNTER → 2023-02-17 08:34 | Outpatient (CLI) | payer MEDICARE, OTHER, SELFPAY ==
[2023-02-17 09:49] LABS: BUN Creatinine Ratio 26.9 (6-22); Blood Urea Nitrogen 29 mg/dL (7-17); Carbon Dioxide 27 mmol/L (22-32); Chloride 101 mmol/L (98-107); Estimated Glomerular Filt Rate 55 mL/min (>60); Glucose 89 mg/dL (80-110); HEMOLYSIS < 15 (0-50); Potassium 4.4 mmol/L (3.4-5.1); Sodium 135 mmol/L (137-145)
== END ==
PROVIDERS: Family Provider Family Medicine; PCP Family Medicine; Referring Provider Internal Medicine Gastroenterology; Visit Provider Internal Medicine Gastroenterology
DX: R18.8 Other ascites (principal)
CPT/HCPCS: 36415; 80048

== ENCOUNTER → 2023-03-02 13:55 | Outpatient (CLI) | payer MEDICARE, OTHER, SELFPAY ==
[2023-03-02 15:17] LABS: INR 1.1 (0.9-1.3); Prothrombin Time 12.8 SECONDS (9.4-12.5)
== END ==
PROVIDERS: Family Provider Family Medicine; PCP Family Medicine; Referring Provider Internal Medicine Gastroenterology; Visit Provider Internal Medicine Gastroenterology
DX: K74.60 Unspecified cirrhosis of liver (principal); R18.8 Other ascites
CPT/HCPCS: 36415; 85610

== ENCOUNTER → 2023-06-08 11:20 | Outpatient (CLI) | payer MEDICARE, OTHER, SELFPAY ==
[2023-06-08 12:36] LABS: Appearance Urine UA SL CLOUDY; Bilirubin Urine UA NEGATIVE (NEGATIVE); Color Urine UA YELLOW; Glucose Urine UA NEGATIVE (Negative); Ketones Urine UA TRACE (NEGATIVE); Leukocyte Esterase Urine UA 2+ (NEGATIVE); Nitrite Urine UA NEGATIVE (Negative); Occult Blood Urine UA 1+ (Negative); Protein Urine UA NEGATIVE (Negative); Specific Gravity Urine UA 1.025 (1.000-1.035); Urobilinogen Urine UA 0.2 E.U./dL (0.2)
[2023-06-08 12:50] LABS: Bacteria Urine Many (>30); RBC Urine 0-1/HPF (0-5/HPF); Squamous Epithelial Cell Urine 10-30 /HPF (0-5/HPF); Urine Volume 10mL (spun); WBC Urine 5-10/HPF (0-5/HPF)
[2023-06-08 12:51] LABS: Culture Indicated Urine Specimen Cultured
[2023-06-08 13:10] LABS: TSH w/ Reflex to FT4 4.08 uIU/mL (0.47-4.68)
== END ==
PROVIDERS: Family Provider Family Medicine; PCP Family Medicine; Referring Provider Family Medicine; Visit Provider Family Medicine
DX: E03.9 Hypothyroidism, unspecified (principal); E88.01 Alpha-1-antitrypsin deficiency; K74.60 Unspecified cirrhosis of liver; D69.6 Thrombocytopenia, unspecified; R19.5 Other fecal abnormalities
CPT/HCPCS: 36415; 81001; 84443; 87086

== ENCOUNTER → 2023-07-21 10:32 | Outpatient (CLI) | payer MEDICARE, OTHER, SELFPAY ==
[2023-07-21 11:32] LABS: Platelet Count 141 X10^3/uL (150-400)
[2023-07-21 12:06] LABS: INR 1.1 (0.9-1.3); Prothrombin Time 12.7 SECONDS (9.4-12.5)
[2023-07-21 12:09] LABS: PTT Partial Thromboplastin Tim 30 SECONDS (25.1-36.5)
== END ==
PROVIDERS: Family Provider Family Medicine; PCP Family Medicine; Referring Provider Family Medicine; Visit Provider Family Medicine
DX: R18.8 Other ascites (principal)
CPT/HCPCS: 36415; 85049; 85610; 85730

== ENCOUNTER → 2023-07-27 15:06 | Outpatient (CLI) | payer MEDICARE, OTHER, SELFPAY ==
--- NOTE | 2023-07-27 15:07 | DI.US.S_ITS ---
PROCEDURE: US PARACENTESIS INDICATIONS: CIRRHOSIS OF LIVER W/ASCITES/HEP ENCEPHALOPATHY TECHNIQUE: The indications, alternatives, benefits, risks, and complications of the procedure were explained to the patient. Written informed consent was obtained and placed in the chart. The abdomen and pelvis were examined sonographically, and an appropriate site was chosen for paracentesis. The skin was prepared and draped in the usual sterile fashion, and 1% lidocaine was infiltrated from the skin down through the peritoneal surface. A 19-gauge catheter-covered needle was then introduced into the peritoneal space, the catheter was advanced and the needle was withdrawn, and thereafter peritoneal fluid was withdrawn. The catheter was then removed and a dressing was applied. The fluid was discarded if the clinician did not order diagnostic testing of the fluid. COMPARISON: [facility], [place], US ABDOMEN COMPLETE, 02/09/2023, 8:55. FINDINGS: Access site: Left lower quadrant Needle: One-Step centesis catheter with introducer needle. Fluid volume and description: 5 L clear yellow fluid Fluid sent for diagnostic testing: Yes, labs per ordering provider. Medications: 1% lidocaine for local anaesthesia. Complications: None. IMPRESSION: Successful ultrasound-guided paracentesis. Approved by: Jed Love M.D. on 07/27/2023 at 20:00
[2023-07-27 17:28] LABS: Body Fluid Tot Nucleated Cells 186 /uL
[2023-07-27 17:31] LABS: Body Fluid Red Blood Cells 348 /uL
[2023-07-27 18:36] LABS: Body Fluid Appearance CLEAR; Body Fluid Clotted? NO CLOTS PRESENT; Body Fluid Color YELLOW
[2023-07-27 19:09] LABS: Eosinophils Body Fluid 75 %; Lymphocytes Body Fluid 19 %; Neutrophils Body Fluid 6 %
== END ==
PROVIDERS: Family Provider Family Medicine; PCP Family Medicine; Referring Provider Internal Medicine Gastroenterology; Visit Provider Internal Medicine Gastroenterology
DX: R18.8 Other ascites (principal); K76.82 Hepatic encephalopathy; K74.60 Unspecified cirrhosis of liver
CPT/HCPCS: 49083; 89051

== ENCOUNTER → 2023-08-10 07:42 | Outpatient (CLI) | payer MEDICARE, OTHER, SELFPAY ==
--- NOTE | 2023-08-10 07:43 | DI.US.S_ITS ---
PROCEDURE: US PARACENTESIS INDICATIONS: CIRRHOSIS OF LIVER W/ASCITES/HEPATIC ENCEPHALOPATH TECHNIQUE: The indications, alternatives, benefits, risks, and complications of the procedure were explained to the patient. Written informed consent was obtained and placed in the chart. The abdomen and pelvis were examined sonographically, and an appropriate site was chosen for paracentesis. The skin was prepared and draped in the usual sterile fashion, and 1% lidocaine was infiltrated from the skin down through the peritoneal surface. A 19-gauge catheter-covered needle was then introduced into the peritoneal space, the catheter was advanced and the needle was withdrawn, and thereafter peritoneal fluid was withdrawn. The catheter was then removed and a dressing was applied. The fluid was discarded if the clinician did not order diagnostic testing of the fluid. COMPARISON: [facility], , PARACENTESIS, 07/27/2023, 15:39. FINDINGS: Access site: Right lower quadrant Needle: One-Step centesis catheter with introducer needle. Fluid volume and description: 4800 clear, straw-colored ascites Fluid sent for diagnostic testing: specimen sent for testing (cell count and differential) Medications: 1% lidocaine for local anaesthesia. Complications: None. IMPRESSION: Successful ultrasound-guided paracentesis. Dictated by: Sukhi Diana M.D. on 08/11/2023 at 8:33 Approved by: Sukhi Diana M.D. on 08/11/2023 at 8:35
[2023-08-10 13:45] LABS: Body Fluid Appearance SLIGHTLY CLOUDY; Body Fluid Clotted? NO CLOTS PRESENT; Body Fluid Color YELLOW
[2023-08-10 13:49] LABS: Body Fluid Tot Nucleated Cells 235 /uL
[2023-08-10 13:54] LABS: Body Fluid Red Blood Cells 250 /uL
[2023-08-10 14:14] LABS: Neutrophils Body Fluid 30 %
[2023-08-10 14:15] LABS: Lymphocytes Body Fluid 40 %; MESO/MACRO/MONO Body Fluid 30 %
== END ==
PROVIDERS: Family Provider Family Medicine; PCP Family Medicine; Referring Provider Internal Medicine Gastroenterology; Visit Provider Internal Medicine Gastroenterology
DX: R18.8 Other ascites (principal); K74.60 Unspecified cirrhosis of liver; K76.82 Hepatic encephalopathy
CPT/HCPCS: 49083; 89051

== ENCOUNTER → 2023-08-17 12:46 | Outpatient (CLI) | payer MEDICARE, OTHER, SELFPAY ==
--- NOTE | 2023-08-17 12:48 | DI.RAD.S_ITS ---
PROCEDURE: XR DEXA AXIAL SKELETON INDICATIONS: screening for osteoporosis COMPARISON: None. FINDINGS: Lumbar Spine: Bone mineral density 1.301 g/cm2, T score 2.3. Left Hip: Bone mineral density 0.932 g/cm2, T score -0.1. Left Femoral Neck: Bone mineral density 0.821 g/cm2, T score -0.3. Right Hip: Bone mineral density 0.92 to g/cm2, T score -0.2. Right Femoral Neck: Bone mineral density is 0.874 g/cm2, T score 0.2. Fracture Risk Calculation (when applicable): 10-year fracture risk of a major osteoporotic fracture 7.3% and of a hip fracture 0.5%. (T score greater or equal to -1.0 to: NORMAL) (T score from -1.1 to -2.4: OSTEOPENIA) (T score less than or equal to -2.5: OSTEOPOROSIS) IMPRESSION: Normal bone mineral density. Follow-up guidelines as follows: Osteoporosis: Consider a repeat DEXA and Vertebral Fracture Assessment (VFA) exam in 2 years or sooner if medically necessary, to reassess this patient's status. Osteopenia: Consider a repeat DEXA in 2-3 years to reassess this patient's status, or if there is a new clinical indication. Normal: Consider a repeat DEXA in 5 years or sooner, or if there is a new clinical indication. All treatment decisions require clinical judgment and consideration of individual patient factors, including patient preferences, comorbidities, previous drug use, risk factors not captured in the FRAX model (e.g., frailty, falls, vitamin D deficiency, increased bone turnover, interval significant decline in bone density ) and possible under- or over-estimation of fracture risk by FRAX. In addition, the NOF Guide recommends that FDA-approved medical therapies be considered in postmenopausal women and men age >= 50 years with a: * Hip or vertebral (clinical or morphometric) fracture * T-score of <=-2.5 at the spine or hip * Ten-year fracture probability by FRAX of >= 3% for hip fracture or >=20% for major osteoporotic fracture. People with diagnosed cases of osteoporosis or at high risk for fracture should have regular bone mineral density tests. For patients eligible for Medicare, routine testing is allowed once every 2 years. The testing frequency can be increased to one year for patients who have rapidly progressing disease, those who are receiving or discontinuing medical therapy to restore bone mass, or have additional risk factors. Dictated by: Sukhi Diana M.D. on 08/17/2023 at 17:42 Approved by: Sukhi Diana M.D. on 08/17/2023 at 17:44
== END ==
PROVIDERS: Family Provider Family Medicine; PCP Family Medicine; Referring Provider Family Medicine; Visit Provider Family Medicine
DX: M85.89 Other specified disorders of bone density and structure, multiple sites (principal)
CPT/HCPCS: 77080

== ENCOUNTER → 2023-09-04 12:35 | Outpatient (CLI) | payer MEDICARE, OTHER, SELFPAY ==
--- NOTE | 2023-09-04 12:36 | DI.MG.S_ITS ---
BILATERAL DIGITAL SCREENING MAMMOGRAM 3D/2D WITH CAD: 09/04/2023 CLINICAL: Routine screening. Comparison is made to exams dated: 03/23/2022 mammogram, 02/05/2021 mammogram, and 01/29/2020 mammogram - [facility]. There are scattered areas of fibroglandular density in both breasts (category b / 25%-50% glandular tissue). Current study was also evaluated with a Computer Aided Detection (CAD) system. No significant masses, calcifications, or other findings are seen in either breast. There has been no significant interval change. IMPRESSION: NEGATIVE There is no mammographic evidence of malignancy. A 1 year screening mammogram is recommended. Based on the Tyrer Cuzick model (a risk assessment model) the patient's lifetime risk is 3.6% and her 10 year risk is 3.0%. According to the ACR, ACS, and NCCN guidelines, an annual breast MRI exam along with mammogram is recommended if the patient's lifetime risk is 20% or greater. This exam was interpreted at Station ID: [id number]. NOTE: For mammograms, a report in lay terms will be sent to the patient. Approximately 15% of breast malignancies will not be visualized mammographically. In the management of a palpable breast mass, a negative mammogram must not discourage biopsy of a clinically suspicious lesion. Electronically Signed By: Sukhi yang/tiera:09/04/2023 15:55:50 letter sent: Normal Exam ACR BI-RADS Category 1: Negative [id number]
== END ==
PROVIDERS: Family Provider Family Medicine; PCP Family Medicine; Referring Provider Family Medicine; Visit Provider Family Medicine
DX: Z12.31 Encounter for screening mammogram for malignant neoplasm of breast (principal); R92.323 Mammographic fibroglandular density, bilateral breasts
CPT/HCPCS: 77063; 77067

== ENCOUNTER → 2023-09-12 15:01 | Outpatient (CLI) | payer MEDICARE, OTHER, SELFPAY ==
--- NOTE | 2023-09-12 | DI.US.S_ITS ---
PROCEDURE: US PARACENTESIS INDICATIONS: CIRRHOSIS OF LIVER TECHNIQUE: The indications, alternatives, benefits, risks, and complications of the procedure were explained to the patient. Written informed consent was obtained and placed in the chart. The abdomen and pelvis were examined sonographically, and an appropriate site was chosen for paracentesis. The skin was prepared and draped in the usual sterile fashion, and 1% lidocaine was infiltrated from the skin down through the peritoneal surface. A 19-gauge catheter-covered needle was then introduced into the peritoneal space, the catheter was advanced and the needle was withdrawn, and thereafter peritoneal fluid was withdrawn. The catheter was then removed and a dressing was applied. The fluid was discarded if the clinician did not order diagnostic testing of the fluid. COMPARISON: [facility], , PARACENTESIS, 08/10/2023, 8:03. FINDINGS: Access site: Right mid quadrant. Patient was positioned in a right decubitus position. Needle: One-Step centesis catheter with introducer needle. Fluid volume and description: Clear yellow Fluid sent for diagnostic testin cc. Clear yellow. Fluid sent for testing. Medications: 1% lidocaine for local anaesthesia. Complications: None. IMPRESSION: Successful ultrasound-guided therapeutic and diagnostic paracentesis. Dictated by: Mustapha Hart M.D. on 09/14/2023 at 13:03 Approved by: Mustapha Hart M.D. on 09/14/2023 at 13:05
[2023-09-12 17:18] LABS: Body Fluid Appearance CLEAR; Body Fluid Clotted? NO CLOTS PRESENT
[2023-09-12 17:25] LABS: Body Fluid Tot Nucleated Cells 136 /uL
[2023-09-12 17:26] LABS: Body Fluid Red Blood Cells 385 /uL
[2023-09-12 17:31] LABS: Body Fluid Color YELLOW
[2023-09-12 17:52] LABS: Lymphocytes Body Fluid 75 %; Neutrophils Body Fluid 25 %
== END ==
LOC: US 15:02
PROVIDERS: Family Provider Family Medicine; PCP Family Medicine; Referring Provider Internal Medicine Gastroenterology; Visit Provider Internal Medicine Gastroenterology
DX: K74.60 Unspecified cirrhosis of liver (principal); R18.8 Other ascites
CPT/HCPCS: 49083; 89051

== ENCOUNTER → 2023-09-26 08:41 | Outpatient (CLI) | payer MEDICARE, OTHER, SELFPAY ==
--- NOTE | 2023-09-26 08:43 | DI.US.S_ITS ---
PROCEDURE: US PARACENTESIS INDICATIONS: acites TECHNIQUE: The indications, alternatives, benefits, risks, and complications of the procedure were explained to the patient. Written informed consent was obtained and placed in the chart. The abdomen and pelvis were examined sonographically, and an appropriate site was chosen for paracentesis. The skin was prepared and draped in the usual sterile fashion, and 1% lidocaine was infiltrated from the skin down through the peritoneal surface. A 19-gauge catheter-covered needle was then introduced into the peritoneal space, the catheter was advanced and the needle was withdrawn, and thereafter peritoneal fluid was withdrawn. The catheter was then removed and a dressing was applied. The fluid was discarded if the clinician did not order diagnostic testing of the fluid. COMPARISON: None. FINDINGS: Access site: Right lower quadrant Needle: One-Step centesis catheter with introducer needle. Fluid volume and description: 5 liters, straw-colored fluid. Fluid sent for diagnostic testin it will. Medications: 1% lidocaine for local anaesthesia. Complications: None. IMPRESSION: Successful ultrasound-guided paracentesis. Dictated by: Lan Green M.D. on 09/28/2023 at 10:32 Approved by: Lan Green M.D. on 09/28/2023 at 10:34
[2023-09-26 10:13] LABS: Body Fluid Tot Nucleated Cells 178 /uL
[2023-09-26 10:15] LABS: Body Fluid Red Blood Cells 320 /uL
[2023-09-26 10:35] LABS: Body Fluid Appearance SLIGHTLY CLOUDY; Body Fluid Clotted? NO CLOTS PRESENT; Body Fluid Color YELLOW
[2023-09-26 10:38] LABS: Lymphocytes Body Fluid 75 %; Neutrophils Body Fluid 25 %
== END ==
PROVIDERS: Family Provider Family Medicine; PCP Family Medicine; Referring Provider Internal Medicine Gastroenterology; Visit Provider Internal Medicine Gastroenterology
DX: K74.60 Unspecified cirrhosis of liver (principal); K76.82 Hepatic encephalopathy; N28.9 Disorder of kidney and ureter, unspecified; R18.8 Other ascites; E88.01 Alpha-1-antitrypsin deficiency
CPT/HCPCS: 49083; 89051

== ENCOUNTER → 2023-09-28 07:44 | Outpatient (CLI) | payer MEDICARE, OTHER, SELFPAY ==
--- NOTE | 2023-09-28 07:45 | DI.US.S_ITS ---
PROCEDURE: US PARACENTESIS INDICATIONS: ASCITES TECHNIQUE: The indications, alternatives, benefits, risks, and complications of the procedure were explained to the patient. Written informed consent was obtained and placed in the chart. The abdomen and pelvis were examined sonographically, and an appropriate site was chosen for paracentesis. The skin was prepared and draped in the usual sterile fashion, and 1% lidocaine was infiltrated from the skin down through the peritoneal surface. A 19-gauge catheter-covered needle was then introduced into the peritoneal space, the catheter was advanced and the needle was withdrawn, and thereafter peritoneal fluid was withdrawn. The catheter was then removed and a dressing was applied. The fluid was discarded if the clinician did not order diagnostic testing of the fluid. COMPARISON: [facility], PARACENTESIS, 09/26/2023, 9:00. FINDINGS: Access site: Left lower quadrant Needle: One-Step centesis catheter with introducer needle. Fluid volume and description: Thin line yellowish Fluid sent for diagnostic testing: No, comment done for therapeutic purposes. Medications: 1% lidocaine for local anaesthesia. Complications: None. IMPRESSION: Successful ultrasound-guided paracentesis. Dictated by: Sathish Bingham M.D. on 09/28/2023 at 13:38 Approved by: Sathish Bingham M.D. on 09/28/2023 at 13:40
== END ==
PROVIDERS: PCP Family Medicine; Referring Provider Internal Medicine Gastroenterology; Visit Provider Internal Medicine Gastroenterology
DX: K74.60 Unspecified cirrhosis of liver (principal); R18.8 Other ascites; K76.82 Hepatic encephalopathy; E88.01 Alpha-1-antitrypsin deficiency; N28.9 Disorder of kidney and ureter, unspecified
CPT/HCPCS: 49083

== ENCOUNTER → 2023-10-10 08:36 | Outpatient (CLI) | payer MEDICARE, OTHER, SELFPAY ==
--- NOTE | 2023-10-10 08:37 | DI.US.S_ITS ---
PROCEDURE: US PARACENTESIS INDICATIONS: ASCITES TECHNIQUE: The indications, alternatives, benefits, risks, and complications of the procedure were explained to the patient. Written informed consent was obtained and placed in the chart. The abdomen and pelvis were examined sonographically, and an appropriate site was chosen for paracentesis. The skin was prepared and draped in the usual sterile fashion, and 1% lidocaine was infiltrated from the skin down through the peritoneal surface. A 19-gauge catheter-covered needle was then introduced into the peritoneal space, the catheter was advanced and the needle was withdrawn, and thereafter peritoneal fluid was withdrawn. The catheter was then removed and a dressing was applied. The fluid was discarded if the clinician did not order diagnostic testing of the fluid. COMPARISON: Merged With [facility], , PARACENTESIS, 09/28/2023, 8:02. FINDINGS: Access site: Left lower quadrant Needle: One-Step centesis catheter with introducer needle. Fluid volume and description: Yellow, 4.5 L Fluid sent for diagnostic testing: As ordered by diagnostic team Medications: 1% lidocaine for local anaesthesia. Complications: None. IMPRESSION: Successful ultrasound-guided paracentesis. Dictated by: Delvin Yang M.D. on 10/10/2023 at 17:00 Approved by: Delvin Yang M.D. on 10/10/2023 at 17:01
== END ==
PROVIDERS: PCP Family Medicine; Referring Provider Internal Medicine Gastroenterology; Visit Provider Internal Medicine Gastroenterology
DX: K74.60 Unspecified cirrhosis of liver (principal); K76.82 Hepatic encephalopathy; R18.8 Other ascites; E88.01 Alpha-1-antitrypsin deficiency; N28.9 Disorder of kidney and ureter, unspecified
CPT/HCPCS: 49083

== ENCOUNTER → 2023-11-02 07:56 | Outpatient (CLI) | payer MEDICARE, OTHER, SELFPAY ==
--- NOTE | 2023-11-02 07:57 | DI.US.S_ITS ---
PROCEDURE: US PARACENTESIS INDICATIONS: ASCITES TECHNIQUE: The indications, alternatives, benefits, risks, and complications of the procedure were explained to the patient. Written informed consent was obtained and placed in the chart. The abdomen and pelvis were examined sonographically, and an appropriate site was chosen for paracentesis. The skin was prepared and draped in the usual sterile fashion, and 1% lidocaine was infiltrated from the skin down through the peritoneal surface. A 19-gauge catheter-covered needle was then introduced into the peritoneal space, the catheter was advanced and the needle was withdrawn, and thereafter peritoneal fluid was withdrawn. The catheter was then removed and a dressing was applied. The fluid was discarded if the clinician did not order diagnostic testing of the fluid. COMPARISON: [facility], , PARACENTESIS, 10/10/2023, 8:58. FINDINGS: Access site: Right lower quadrant Needle: One-Step centesis catheter with introducer needle. Fluid volume and description: Clear straw-colored. 5 liters. Fluid sent for diagnostic testing: Yes Medications: 1% lidocaine for local anaesthesia. Complications: None. IMPRESSION: Successful ultrasound-guided paracentesis. Dictated by: Faraz Hernandez M.D. on 11/02/2023 at 9:22 Approved by: Faraz Hernandez M.D. on 11/02/2023 at 9:26
[2023-11-02 09:32] LABS: Body Fluid Tot Nucleated Cells 153 /uL
[2023-11-02 09:46] LABS: Body Fluid Red Blood Cells < 1000 /uL
[2023-11-02 09:49] LABS: Body Fluid Clotted? NO CLOTS PRESENT; Body Fluid Color YELLOW
[2023-11-02 09:50] LABS: Body Fluid Appearance CLOUDY
[2023-11-02 09:55] LABS: Lymphocytes Body Fluid 44 %; Neutrophils Body Fluid 14 %
[2023-11-02 09:56] LABS: MESO/MACRO/MONO Body Fluid 42 %
== END ==
PROVIDERS: PCP Family Medicine; Referring Provider Internal Medicine Gastroenterology; Visit Provider Internal Medicine Gastroenterology
DX: K74.60 Unspecified cirrhosis of liver (principal); R18.8 Other ascites; E88.01 Alpha-1-antitrypsin deficiency; K76.82 Hepatic encephalopathy; N28.9 Disorder of kidney and ureter, unspecified
CPT/HCPCS: 49083; 89051

== ENCOUNTER → 2023-11-22 08:02 | Outpatient (CLI) | payer MEDICARE, OTHER, SELFPAY ==
--- NOTE | 2023-11-22 08:02 | DI.ECHO.S_ITS ---
[facility]+ [facility] : : [address] : : [place] : : [id number] : : Phone: [phone] Echocardiogram Report + + :Name: OTILIO BURKETT Study Date: 11/22/2023 Height: 64.5 in: :[facility] [facility] [employer] [facility] ReadingLocation: Weight: 160 lb : : Gender: Female BSA: 1.8 m2 : :: 1950 Age: 73 yrs BP: 109/67 mmHg: :Reason For Study: PRE TRANSPLANT ECHO : :Ordering Physician: KIAH, : :MICHELLE Performed By: Kelley Canada : :Referring: MICHELLE DUPONT : + + Interpretation Summary The left ventricle is normal in size and wall thickness. The ejection fraction is estimated to be 60-65%. There are no focal wall motion abnormalities. Diastolic parameters suggest a relaxation abnormality of the left ventricle, consistent with probable normal filling pressures. The right ventricle is normal in size and function. Right ventricular systolic pressure is estimated to be 19 mmHg plus the clinically estimated CVP which cannot be estimated on this exam. Borderline left atrial enlargement. Cannot exclude a patent foramen ovale. The aortic root is normal size. Procedure: A two-dimensional transthoracic echocardiogram with color flow and Doppler was performed. The study quality was technically adequate. Comparison is made with the echocardiogram of 07/09/2020. The patient was in sinus rhythm with heart rates between 64-84 bpm during the exam. Left Ventricle: The left ventricle is normal in size and wall thickness. The ejection fraction is estimated to be 60-65%. There are no focal wall motion abnormalities. Diastolic parameters suggest a relaxation abnormality of the left ventricle, consistent with probable normal filling pressures. Right Ventricle: The right ventricle is normal in size and function. Atria: Borderline left atrial enlargement. Right atrial size is normal. Cannot exclude a patent foramen ovale. Mitral Valve: The mitral valve leaflets appear mildly thickened, but open well. There is mild mitral regurgitation. Aortic Valve: The aortic valve is trileaflet. The aortic valve opens well. There is no aortic valve stenosis. No aortic regurgitation is present. Tricuspid Valve: The tricuspid valve leaflets are thin and pliable. There is mild tricuspid regurgitation. Right ventricular systolic pressure is estimated to be 19 mmHg plus the clinically estimated CVP which cannot be estimated on this exam. Pulmonic Valve: The pulmonic valve leaflets are thin and pliable; valve motion is normal. There is trace pulmonic regurgitation. Great Vessels: The aortic root is normal size. The ascending aorta could not be visualized. The inferior vena cava was not well visualized. Pericardium/ Pleura There is no pericardial effusion. There is a large left- sided pleural effusion. MMode/2D Measurements & Calculations LVIDd: 4.5 cm LVOT diam: 2.1 cm LVIDs: 3.3 cm Ao root diam: 2.8 cm FS: 26.6 % Ao Arch Diam (Prox Trans): 2.5 cm EPSS: 0.54 cm IVSd: 0.63 cm LVPWd: 0.80 cm LV rios. diameter/BSA (cm/m^2): 2.5 LV sys. diameter/BSA (cm/m^2): 1.9 LA A2 area: 17.6 cm2 RA long axis: 4.7 cm LA A4 area: 16.9 cm2 RA area: 8.5 cm2 LA length (vol): 4.7 cm RA vol: 13.0 ml LA vol: 53.9 ml RA : 7.3 ml/m2 LA vol index: 30.1 ml/m2 RVD1 (basal): 2.7 cm TAPSE: 2.0 cm Doppler Measurements & Calculations Ao V2 max: 139.6 cm/sec LVOT Max Michael: 93.8 cm/sec Ao V2 mean: 101.9 cm/sec LV V1 max P.5 mmHg Ao max P.8 mmHg LV V1 VTI: 22.6 cm Ao mean P.5 mmHg MARK ANTHONY(I,D): 2.3 cm2 Ao V2 VTI: 33.0 cm MARK ANTHONY(V,D): 2.3 cm2 sev ratio: 0.69 MARK ANTHONY indexed to BSA (cm^2/m^2): 1.3 MV E max michael: 75.1 cm/sec TR max michael: 219.0 cm/sec MV A max michael: 112.5 cm/sec TR max P.2 mmHg MV E/A: 0.67 PA V2 max: 90.4 cm/sec Med Peak E' Michael: 7.4 cm/sec PA V2 mean: 66.9 cm/sec E/E' med: 10.1 PA mean P.9 mmHg Lat Peak E' Michael: 12.3 cm/sec PA pr(Accel): 53.3 mmHg E/E' lat: 6.1 E/e' average: 8.1 MV dec time: 0.24 sec SV(LVOT): 77.3 ml Reading Physician:05:26 PM
== END ==
LOC: ECHO 08:02
PROVIDERS: PCP Family Medicine; Referring Provider Family Medicine; Visit Provider Family Medicine
DX: I08.1 Rheumatic disorders of both mitral and tricuspid valves (principal); E88.01 Alpha-1-antitrypsin deficiency; K74.60 Unspecified cirrhosis of liver; R06.00 Dyspnea, unspecified; E03.9 Hypothyroidism, unspecified; R18.8 Other ascites
CPT/HCPCS: 93306

== ENCOUNTER 2023-12-14 13:02 | Emergency (ER) | payer MEDICARE, OTHER, SELFPAY ==
[2023-12-14] VITALS (19 sets, daily range): BP systolic 92–109; BP diastolic 45–58; PULSE 64–76; RESP 16; TEMP 36.5–36.6; O2SAT 97–100; BMI 26.6
--- NOTE | 2023-12-14 13:49 | ED_ITS ---
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 Denies trauma or injury or new activities. She does not recall any kidney problems. She has not had any black or bloody stools recent. No nausea or vomiting. No fevers or chills. She does not feel like he is going to pass out, does not feel dizzy, denies chest pain or shortness of breath. Related Data Home Medications Medication Instructions Recorded Confirmed latanoprost 0.005 % eye drops 1 drp EYE-BOTH DAILY 01/29/19 11/07/23 metronidazole 0.75 % topical cream 1 applic topical DAILY 08/30/23 11/07/23 furosemide 20 mg tablet 20 mg PO DAILY 12/14/23 lactulose 10 gram/15 mL (15 mL) 15 g PO BID 12/14/23 oral solution spironolactone 50 mg tablet 50 mg PO DAILY 12/14/23 Previous Rx's Medication Instructions Recorded levothyroxine 88 mcg tablet 88 mcg PO DAILY #90 tabs 06/26/23 Disabled Parking Permit #1 ea 10/19/23 apixaban 5 mg tablet (Eliquis) 5 mg PO BID #60 tabs 12/14/23 cefdinir 300 mg capsule 300 mg PO BID 10 days #20 caps 12/14/23 Allergies Allergy/AdvReac Type Severity Reaction Status Date / Time avocado Allergy Severe swelling Verified 11/07/23 08:35 acetaminophen [ACETAMINOPHEN] Allergy Unknown SEVERE Verified 11/07/23 08:35 GROGGINESS diphenhydramine Allergy Unknown SEVERE Verified 09/03/24 08:35 [DIPHENHYDRAMINE] GROGINESS ibuprofen [IBUPROFEN] Allergy Unknown RASH Verified 11/07/23 08:35 chloramphenicol Allergy Verified 12/14/23 13:23 chlorhexidine Allergy Verified 12/14/23 13:23 Review of Systems Review of Systems Narrative: See HPI Patient History Medical History (Updated 12/14/23 @ 19:28 by Alfredo Chavez MD) Encounter for pessary maintenance Fatigue Aegxl-7-inyoultpybi deficiency Cirrhosis Left hip pain Thrombocytopenia Dyspnea on exertion Rosacea (~2017) Ankle pain (~2016) Measles Chicken pox Dyspnea on exertion Eczema (~2019) Surgical History Anesthesia History of vaginal delivery (~1972) History of third molar tooth extraction Family History Father Diabetes mellitus History of heart disease Diverticulitis Mother Mental health problem Dementia Stroke Brother Diverticulitis Family/Other Brain abscess Social History household members: spouse Smoking Status: Never smoker alcohol intake: current Smoking Status: Never smoker alcohol intake frequency: other Substance Use Type: does not use Exam Narrative Exam Narrative: GENERAL: Well-developed patient, in mild distress. HEAD: Atraumatic. Normocephalic. EYES: Pupils equal round and reactive. Extraocular motions intact. No scleral icterus. No injection or drainage. ENT: Nose without bleeding, purulent drainage. Throat without erythema, tonsillar hypertrophy or exudate. Airway patent. NECK: Trachea midline. Non tender CARDIOVASCULAR: Regular rate and rhythm without murmurs, gallops, or rubs. RESPIRATORY: Clear to auscultation. Breath sounds equal bilaterally. No wheezes, rales, or rhonchi. GASTROINTESTINAL: 4 cm diameter area of right central lower abdominal bruising, nontender, nonpulsatile, without redness or induration, no drainage. Remainder of abdominal exam likely ascites although by report it is much less than before her TIPS procedure. Bowel tones present without rushes or tinkles. No obvious umbilical or other ventral hernias. EXTREMITIES: No edema or joint tenderness. BACK: Nontender without deformity or crepitance. No flank tenderness. NEURO: AOx3. Motor functions grossly nonfocal. Patient seems quite lucid, able to relay detailed medical history, no evidence for confusion SKIN: No rash or erythema of visible areas Initial Vital Signs Initial Vital Signs: Vital Signs Temperature 97.9 F 12/14/23 13:02 Pulse Rate 76 12/14/23 13:02 Respiratory Rate 16 12/14/23 13:02 Blood Pressure 96/48 L 12/14/23 13:02 Pulse Oximetry 99 12/14/23 13:02 Oxygen Delivery Method Room Air 12/14/23 13:02 Course Orders Ordered: ED Orders 12/14/23 16:43 Ammonia (NH3) Stat Complete Blood Count AUTO DIFF Stat Comprehensive Metabolic Panel Stat Lipase Stat Prothrombin Time INR Stat 12/14/23 16:55 Urine Culture Stat Urine Microscopic Stat 12/14/23 17:24 CT abdomen pelvis w con Stat Discontinued Medications Apixaban (Apixaban 5 Mg Tablet) 5 mg PO NOW ONE Stop: 12/14/23 19:06 Last Admin: 12/14/23 19:21 Dose: 5 mg Documented By: ISRAEL Cefdinir (Cefdinir 300 Mg Capsule) 300 mg PO NOW ONE Stop: 12/14/23 19:06 Last Admin: 12/14/23 19:21 Dose: 300 mg Documented By: ISRAEL Vital Signs Vital signs: Vital Signs - 8 hr 12/14/23 13:30 12/14/23 13:30 12/14/23 14:00 Temperature Pulse Rate 67 Respiratory Rate Blood Pressure 95/50 L 97/49 L Pulse Oximetry 99 Oxygen Delivery Method 12/14/23 14:00 12/14/23 14:30 12/14/23 14:30 Temperature Pulse Rate 70 72 Respiratory Rate Blood Pressure 98/50 L Pulse Oximetry 99 99 Oxygen Delivery Method Room Air 12/14/23 15:00 12/14/23 15:00 12/14/23 15:05 Temperature Pulse Rate 67 Respiratory Rate Blood Pressure 93/45 L Pulse Oximetry 97 100 Oxygen Delivery Method 12/14/23 15:07 12/14/23 15:15 12/14/23 15:15 Temperature Pulse Rate 75 Respiratory Rate Blood Pressure 97/46 L 109/53 L Pulse Oximetry 100 Oxygen Delivery Method Room Air 12/14/23 15:30 12/14/23 15:30 12/14/23 15:45 Temperature Pulse Rate 72 Respiratory Rate Blood Pressure 92/46 L 96/54 L Pulse Oximetry 100 Oxygen Delivery Method 12/14/23 15:45 12/14/23 16:00 12/14/23 16:00 Temperature Pulse Rate 71 72 Respiratory Rate Blood Pressure 99/53 L Pulse Oximetry 100 100 Oxygen Delivery Method 12/14/23 16:15 12/14/23 16:15 12/14/23 16:30 Temperature Pulse Rate 70 71 Respiratory Rate Blood Pressure 92/47 L Pulse Oximetry 100 99 Oxygen Delivery Method Room Air 12/14/23 16:57 12/14/23 16:57 12/14/23 17:00 Temperature Pulse Rate 68 Respiratory Rate Blood Pressure 102/45 L 100/51 L Pulse Oximetry 100 Oxygen Delivery Method Room Air 12/14/23 17:00 12/14/23 17:15 12/14/23 17:15 Temperature Pulse Rate 67 69 Respiratory Rate Blood Pressure 95/52 L Pulse Oximetry 100 100 Oxygen Delivery Method 12/14/23 17:30 12/14/23 17:30 12/14/23 20:02 Temperature 97.7 F Pulse Rate 69 64 Respiratory Rate 16 Blood Pressure 95/48 L 95/58 L Pulse Oximetry 100 98 Oxygen Delivery Method Room Air Room Air MDM - Recheck/Abnormal Lab/Rx Lab Data Attestation: I reviewed the patient's lab results. 12/14/23 16:43 12/14/23 16:43 Labs: Lab Results 12/14/23 12/14/23 Range/Units 16:43 16:55 WBC 8.5 (4.5-11.0) X10^3/uL RBC 3.14 L (4.0-5.2) X10^6/uL Hgb 10.9 L (12.0-16.0) g/dL Hct 32.6 L (36-46) % MCV 103.7 H (80-100) fL MCH 34.8 H (26-34) PG MCHC 33.6 (30-36) % RDW 14.6 (11.6-14.8) % Plt Count 140 L (150-400) X10^3/uL Neut % (Auto) 64.6 (50-75) % Lymph % (Auto) 23.6 L (25-40) % [place] % (Auto) 9.2 (3-14) % Eos % (Auto) 1.8 L (2-4) % Baso % (Auto) 0.8 (0-2) % Neut # (Auto) 5500 (6330-7692) /uL Lymph # (Auto) 2000 (9270-4225) /uL [place] # (Auto) 800 (0-900) /uL Eos # (Auto) 200 (0-450) /uL Baso # (Auto) 100 (0-100) /uL PT 13.9 H (9.4-12.5) SECONDS INR 1.2 (0.9-1.3) Sodium 133 L (137-145) mmol/L Potassium 4.2 (3.4-5.1) mmol/L Chloride 108 H (98-107) mmol/L Carbon Dioxide 22 (22-32) mmol/L BUN 29 H (7-17) mg/dL Creatinine 1.00 (0.52-1.04) mg/dL Estimated GFR 59 L (>60) mL/min BUN/Creatinine Ratio 29.0 H (6-22) Glucose 89 (80-110) mg/dL Calcium 8.2 L (8.4-10.2) mg/dL Total Bilirubin 0.9 (0.2-1.3) mg/dL AST 53 H (14-36) IU/L ALT 34 (<35) IU/L Alkaline Phosphatase 189 H (38-126) U/L Ammonia 13 (9-30) umol/L Total Protein 5.7 L (6.3-8.2) g/dL Albumin 2.7 L (3.5-5.0) g/dL Globulin 3.0 (1.7-4.1) g/dL Albumin/Globulin Ratio 0.9 L (1.0-2.8) Lipase 266 (23-300) U/L Urine RBC 0-1/hpf (0-5/HPF) Urine WBC 5-10/hpf H (0-5/HPF) Ur Squamous Epith Cells 1-5 /hpf D (0-5/HPF) Urine Bacteria Moderate (10-30) H (None) Ur Culture Indicated? Specimen cultured Vol Urine Centrifuged 10ml (spun) Urine Dip Bedside Urine Glucose Negative Bedside Urine Bilirubin - Negative Bedside Urine Ketone - Negative Urine Specific [place] 1.030 Bedside Urine Occult Blood +/- Bedside Urine pH 6.0 Bedside Urine Protein - Negative Bedside Urine Urobilinogen - Negative Bedside Urine Nitrite - Negative Bedside Urine Leukocytes +/- [address] scan - abdomen/pelvis: Radiologist's Impression: [address] [address] [address] Scan Report Signed Patient: Kim Francis MR#: [id number] : 1950 Acct:[id number] Age/Sex: 73 / F Date of Service: 12/14/23 Loc: ED Accession Number: [id number] Procedure: CT abdomen pelvis w con Ordering Provider: Alfredo Chavez MD PROCEDURE: CT ABDOMEN PELVIS W CON INDICATIONS: Bruising right lower abdominal wall, recent TIPPS procedure TECHNIQUE: After the administration of intravenous contrast, axial sections acquired from the lung bases to the pubic symphysis. Coronal and sagittal reformats were performed. For radiation dose reduction, the following was used: automated exposure control, adjustment of mA and/or kV according to patient size. COMPARISON: [facility], CT, CT CHEST ABD PEL W CON, 10/25/2022, 11:00. FINDINGS: Image quality: Diagnostic. Lower Chest: Periesophageal varices. ABDOMEN: Liver: Cirrhosis. Single phase contrast evaluation is suboptimal for detection of hepatocellular carcinoma. No large mass identified. New occlusion the right portal vein (series 2, image 39). Tips present, with contrast present throughout the stent. Gallbladder: Diffuse gallbladder wall thickening. No distension. No radiopaque stones. Biliary ducts: No biliary dilation. Pancreas: No ductal dilation. Pancreatic divisum. Spleen: Enlarged. Calcified granuloma. Adrenal Glands: No adrenal nodules. Kidneys and Ureters: No hydronephrosis. No solid mass. No complex renal cystic lesion which requires follow up. Stomach and Bowel: Normal colonic caliber, without significant wall thickening. Colonic diverticulosis without evidence of diverticulitis. Peritoneum: Large volume ascites. Ventral Wall: No significant ventral hernia. Anasarca. Abdominal Nodes: No retroperitoneal or mesenteric adenopathy by size criteria. Vessels: Aorta and inferior vena cava are normal in size. Portosystemic collaterals. PELVIS: Pelvic Organs: Foreign body within the vagina, likely a pessary device. Bladder: No bladder wall thickening, accounting for underdistention. Pelvic Nodes: No enlarged lymph nodes. Miscellaneous: No inguinal hernias are seen. Bones: No aggressive osseous abnormality. IMPRESSION: Cirrhotic liver morphology. Patent TIPS. New occlusion of the right portal vein. No large hematoma in the right lower abdominal wall. Large volume ascites. Anasarca. Other chronic findings as above. Dictated by: Nazario Carrera M.D. on 12/14/2023 at 17:57 Approved by: Nazario Carrera M.D. on 12/14/2023 at 18:02 [facility] Narrative Medical decision making narrative: 73-year-old female with history of nonalcoholic cirrhosis due to alpha-1 antitrypsin deficiency, status post TIPS procedure [facility] 2 weeks ago, now with atraumatic bruising noted this morning right central lower abdomen, without hypotension, afebrile, no black or red stools, some ascites on examination but apparently decreased from preprocedure volume/tension. Labs pending. Anticipate imaging CT abdomen and pelvis, preferably with IV contrast if GFR favorable. Patient agreeable. Keep NPO for now. 1650, still no lab results, apparently unable to draw, labs services who is come to do blood draw. Await GFR test results Creatinine favorable, CT abdomen and pelvis with IV contrast ordered. Keep NPO. CT abdomen and pelvis with IV contrast. Impressions: ?Cirrhotic liver morphology. Patent TIPS. New occlusion of the right portal vein. No large hematoma in the right lower abdominal wall. Large volume ascites. Anasarca. Other chronic findings.. See radiology report CT shows new occlusion of the right portal vein, however the TIPS itself is currently patent. Will consult her GI specialist Dr Bridges at [facility] Urinal[facility] suspicious for urine infection, no fever, NKDA, oral cefdinir 1st dose now, prescription sent to her pharmacy 1900, case discussed with Dr. C[facility], CT report read to him, including patency of the TIPS, but new finding occlusion of the right portal vein. He says this is a new finding, and would advise starting anticoagulation Eliquis 5 mg twice daily to hopefully prevent extension of the new right portal vein thrombosis into the TIPS. We discussed patient's other labs, creatinine 1.0 improved from prior study, patient has decreased subjective ascites symptoms, also INR 1.2 stable, mental status and ammonia level stable on increased postprocedure lactulose dosing. Dr Bridges advises patient to follow up postprocedure with him in clinic as planned, otherwise with PCP, agrees with starting antibiotics for possible urinary infection to avoid sepsis complication at this time. Eliquis 5 mg 1st oral dose now, prescription sent to her pharmacy for further treatment. Follow up with GI as above. Home with . Return precautions discussed Discharge Plan Departure Patient Disposition: Home Clinical Impression: Superficial bruising of abdominal wall, History of ascites, History of cirrhosis, Portal vein thrombosis, Portosystemic venous shunt, Urinary tract infection Activity Restrictions/Additional Instructions: Recent TIPS procedure for non alcoholic cirrhosis and ascites 2 weeks ago at [facility] by Interventional Radiology and coordination of services by speech pathology teacher Dr. Bridges. New right lower abdominal bruising without gross trauma in that area tonight. This prompted evaluation including laboratory services, which were improved from recent studies. CT abdomen and pelvis imaging was done, and showed a patent TIPS at this time, however a new right portal vein occlusion. This finding was discussed with your speech pathology teacher, who advised starting anticoagulation with Eliquis 5 mg twice daily, to help prevent progression of this clot into the TIPS. Incidentally you were also found by urinalysis to have likely urine infection, 1st dose antibiotic cefdinir given, prescription sent to your pharmacy. Follow up with your speech pathology teacher advised as scheduled postprocedure. He seemed encouraged by your postprocedure laboratory tests and symptomatic improvement in the amount of ascites he seemed to have. Follow up with your GI specialist as planned. Return to this/nearest emergency department for any change worsening symptoms or any concerns prior Prescriptions: New Eliquis 5 mg tablet 5 mg PO BID Qty: 60 0RF cefdinir 300 mg capsule 300 mg PO BID 10 Days Qty: 20 0RF No Action levothyroxine 88 mcg tablet 88 mcg PO DAILY Qty: 90 2RF furosemide 20 mg tablet 20 mg PO DAILY Rx Instructions: morning lactulose 10 gram/15 mL (15 mL) solution 15 g PO BID spironolactone 50 mg tablet 50 mg PO DAILY metronidazole 0.75 % cream 1 applic topical DAILY (DME) Disabled Parking Permit See Rx Instructions .ROUTE .MEDSUPPLY Qty: 1 0RF Rx Instructions: I find this patient to be medically disabled and qualified for Disabled Parking as indicated and signed on the accompanying Disabled Parking Application for Individuals. latanoprost 0.005 % drops 1 drp EYE-BOTH DAILY Referrals: Louis Gutierrez MD [Primary Care Provider] - Stand Alone Forms: Patient Portal/API
[2023-12-14 16:57] LABS: Add Manual Diff / Slide Review NO; Basophils Absolute Auto 100 /uL (0-100); Basophils Percent Auto 0.8 % (0-2); Eosinophils Absolute Auto 200 /uL (0-450); Eosinophils Percent Auto 1.8 % (2-4); Hematocrit 32.6 % (36-46); Hemoglobin 10.9 g/dL (12.0-16.0); Lymphocytes Absolute Auto 2000 /uL (1100-4500); Lymphocytes Percent Auto 23.6 % (25-40); Mean Corpuscular HGB Conc 33.6 % (30-36); Mean Corpuscular Hemoglobin 34.8 PG (26-34); Mean Corpuscular Volume 103.7 fL (80-100); Monocytes Absolute Auto 800 /uL (0-900); Monocytes Percent Auto 9.2 % (3-14); Neutrophils Absolute Auto 5500 /uL (1500-7000); Neutrophils Percent Auto 64.6 % (50-75); Platelet Count 140 X10^3/uL (150-400); Red Blood Cell Count 3.14 X10^6/uL (4.0-5.2); Red Cell Distribution Width 14.6 % (11.6-14.8); White Blood Cell Count 8.5 X10^3/uL (4.5-11.0)
[2023-12-14 17:03] LABS: INR 1.2 (0.9-1.3); Prothrombin Time 13.9 SECONDS (9.4-12.5)
[2023-12-14 17:14] LABS: Ammonia (NH3) 13 umol/L (9-30)
[2023-12-14 17:15] LABS: Alanine Aminotransferase 34 IU/L (<35); Albumin 2.7 g/dL (3.5-5.0); Albumin Globulin Ratio 0.9 (1.0-2.8); Bilirubin Total 0.9 mg/dL (0.2-1.3); Blood Urea Nitrogen 29 mg/dL (7-17); Calcium 8.2 mg/dL (8.4-10.2); Carbon Dioxide 22 mmol/L (22-32); Chloride 108 mmol/L (98-107); Estimated Glomerular Filt Rate 59 mL/min (>60); Glucose 89 mg/dL (80-110); Lipase 266 U/L (23-300); Sodium 133 mmol/L (137-145); Total Protein 5.7 g/dL (6.3-8.2)
[2023-12-14 17:16] LABS: HEMOLYSIS 53 (0-50)
[2023-12-14 17:17] LABS: Alkaline Phosphatase 189 U/L (38-126); Aspartate Aminotransferase 53 IU/L (14-36); Potassium 4.2 mmol/L (3.4-5.1)
--- NOTE | 2023-12-14 17:24 | DI.CT.S_ITS ---
PROCEDURE: CT ABDOMEN PELVIS W CON INDICATIONS: Bruising right lower abdominal wall, recent TIPPS procedure TECHNIQUE: After the administration of intravenous contrast, axial sections acquired from the lung bases to the pubic symphysis. Coronal and sagittal reformats were performed. For radiation dose reduction, the following was used: automated exposure control, adjustment of mA and/or kV according to patient size. COMPARISON: [facility], CT, CT CHEST ABD PEL W CON, 10/25/2022, 11:00. FINDINGS: Image quality: Diagnostic. Lower Chest: Periesophageal varices. ABDOMEN: Liver: Cirrhosis. Single phase contrast evaluation is suboptimal for detection of hepatocellular carcinoma. No large mass identified. New occlusion the right portal vein (series 2, image 39). Tips present, with contrast present throughout the stent. Gallbladder: Diffuse gallbladder wall thickening. No distension. No radiopaque stones. Biliary ducts: No biliary dilation. Pancreas: No ductal dilation. Pancreatic divisum. Spleen: Enlarged. Calcified granuloma. Adrenal Glands: No adrenal nodules. Kidneys and Ureters: No hydronephrosis. No solid mass. No complex renal cystic lesion which requires follow up. Stomach and Bowel: Normal colonic caliber, without significant wall thickening. Colonic diverticulosis without evidence of diverticulitis. Peritoneum: Large volume ascites. Ventral Wall: No significant ventral hernia. Anasarca. Abdominal Nodes: No retroperitoneal or mesenteric adenopathy by size criteria. Vessels: Aorta and inferior vena cava are normal in size. Portosystemic collaterals. PELVIS: Pelvic Organs: Foreign body within the vagina, likely a pessary device. Bladder: No bladder wall thickening, accounting for underdistention. Pelvic Nodes: No enlarged lymph nodes. Miscellaneous: No inguinal hernias are seen. Bones: No aggressive osseous abnormality. IMPRESSION: Cirrhotic liver morphology. Patent TIPS. New occlusion of the right portal vein. No large hematoma in the right lower abdominal wall. Large volume ascites. Anasarca. Other chronic findings as above. Dictated by: Nazario Carrera M.D. on 12/14/2023 at 17:57 Approved by: Nazario Carrera M.D. on 12/14/2023 at 18:02
[2023-12-14 17:40] LABS: Urine Volume 10mL (spun)
[2023-12-14 17:41] LABS: Bacteria Urine Moderate (10-30); Squamous Epithelial Cell Urine 1-5 /HPF (0-5/HPF)
[2023-12-14 17:42] LABS: Culture Indicated Urine Specimen Cultured; RBC Urine 0-1/HPF (0-5/HPF); WBC Urine 5-10/HPF (0-5/HPF)
[2023-12-14] MEDS: APIXABAN 5 MG TABLET PO (19:21)
[2023-12-14] MEDS: CEFDINIR 300 MG CAPSULE PO (19:21)
== END 2023-12-14 19:59 | disposition home or self-care (01) ==
PROVIDERS: Emergency Provider Emergency Medicine; PCP Family Medicine
DX: S30.1XXA Contusion of abdominal wall, initial encounter (principal); N39.0 Urinary tract infection, site not specified; I81 Portal vein thrombosis; I99.8 Other disorder of circulatory system; Z87.19 Personal history of other diseases of the digestive system; Z79.01 Long term (current) use of anticoagulants
CPT/HCPCS: 36415; 74177; 80053; 81003; 81015; 82140; 83690; 85025; 85610; 87086; 99283; 99284; Q9967

== ENCOUNTER → 2024-07-12 16:45 | Outpatient (CLI) | payer MEDICARE, OTHER, SELFPAY ==
--- NOTE | 2024-07-12 16:51 | DI.RAD.S_ITS ---
PROCEDURE: XR LUMBAR SPINE 2-3V INDICATIONS: Oevg-uadjvxh-xria-right hip pain and low back TECHNIQUE: 3 views of the lumbar spine were acquired. COMPARISON: [facility], CR, XR LUMBAR SPINE 2-3V, 05/23/2022, 15:51. FINDINGS: Bones: 5 unf-fmi-ibxflvt vertebrae are present. Grade 1 anterolisthesis of L4 on L5, without pars defects No vertebral body compression fractures. No suspicious bony lesions. Eflu-vq-jsmgdqql disc height loss at all levels, most prominent at L4-5. Diffuse facet arthrosis. Soft tissues: Overlying bowel gas pattern is normal. No suspicious soft tissue calcifications. Tips shunt visualized. IMPRESSION: Mild to moderate, multilevel degenerative disc disease and diffuse facet arthrosis. Dictated by: Nazario Carrera M.D. on 07/13/2024 at 7:38 Approved by: Nazario Carrera M.D. on 07/13/2024 at 7:39
--- NOTE | 2024-07-12 16:51 | DI.RAD.S_ITS ---
PROCEDURE: XR HIP W PEL IF DONE ANDRADE MIN 4V INDICATIONS: Nbmy-teezeqw-ihwp-right hip pain and low back TECHNIQUE: AP pelvis with lateral view(s) of the bilateral hip(s). COMPARISON: [facility], NILSA, XR HIP W PEL IF DONE LT 2V, 06/24/2022, 11:31. FINDINGS: Bones: No fractures or dislocations. Pelvic ring appears intact. No suspicious bony lesions. Nonuniform joint space narrowing and osteophytic lipping of the acetabuli. Soft tissues: The visualized bowel gas pattern is normal. No suspicious soft tissue calcifications. IMPRESSION: Mild bilateral hip osteoarthritis. Kellgren-Jt Grade 2. Dictated by: Nazario Carrera M.D. on 07/13/2024 at 7:37 Approved by: Nazario Carrera M.D. on 07/13/2024 at 7:38
== END ==
PROVIDERS: PCP Family Medicine; Referring Provider Family Medicine; Visit Provider Family Medicine
DX: M51.360 Other intervertebral disc degeneration, lumbar region with discogenic back pain only (principal); M47.816 Spondylosis without myelopathy or radiculopathy, lumbar region; M25.552 Pain in left hip; M16.0 Bilateral primary osteoarthritis of hip; G89.29 Other chronic pain; R20.0 Anesthesia of skin
CPT/HCPCS: 72100; 73522

== ENCOUNTER 2024-11-15 09:45 | Outpatient (RCR) | payer MEDICARE, OTHER, SELFPAY ==
--- NOTE | 2024-09-04 07:27 | PT.OIE ---
Current Diagnoses Unspecified disorder of synovium and tendon, left thigh (09/03/24) Past Medical History (Last Updated 08/06/24 @ 11:08 by Bernard Carrillo MD) Ifgng-8-sknzpieaocd deficiency Ankle pain (~2016) Chicken pox Cirrhosis Dyspnea on exertion Dyspnea on exertion Eczema (~2019) Encounter for pessary maintenance Fatigue Left hip pain Measles Rosacea (~2017) Tendinopathy of left gluteus medius Thrombocytopenia Past Surgical History (Last Reviewed 12/26/22 @ 14:10 by Nigel Sandy MD) Anesthesia History of third molar tooth extraction History of vaginal delivery (~1972) Visit Care Team Role Provider Type Louis Gutierrez MD Family Provider Physician Primary Care Provider Specialty: Family Practice Address: [address] [place] [address] Email: [email or web address] Bernard Carrillo MD Attending Provider Physician Referring Provider Specialty: Orthopedics Orthopedic Surgery Address: [address] [place] [address], [facility] Fax: Email: [email or web address] Physical Therapy Initial Evaluation PT-OP-A Visit Information Start: 09/03/24 10:44 Freq: Status: Active Protocol: Document 09/03/24 10:46 BL (Rec: 09/03/24 19:12 BL Laptop) Out-Patient Physical Therapy Visit Information Visit Information Visit Type Initial Evaluation Visit Start Time 10:45 Visit Stop Time 11:25 Visit Number (1) 03/15 (PN by 10/04/24) Number of CARPENTRY PROFESSIONAL Visits 0 Evaluation Information Evaluation Date 09/03/24 PT-OP-C Subjective Start: 09/03/24 10:44 Freq: Status: Active Protocol: Document 09/03/24 10:46 BL (Rec: 09/03/24 19:12 BL Laptop) OP-PT Subjective Patient Comments Patient Comments Pt presents to the clinic this date with long standing L hip pain, Pt reports she has not been able to focus on this due to other medical issues but over the past couple of years, her symptoms have progressively worsened. Pt reports difficulty with putting weight through L LE, sitting or standing for long periods of time. Pt denies feeling stiffness but reports her discomfort as more of a sharp pain that is rated as 5/ 10 on average but can be as bad as 9/10 when standing for over an hour. Pt had some imaging done due to concerns for L foot numbness, that pt reports is improving. imaging showed compressed L4-5, L foot numbness L shoulder pain over the last month and half. Pt also endorses recent onset of L shoulder pain. Patient Reported Worse Progress Patient Questionnaires Lower Extremity Functional Scale LEFS Score 33% function PT-OP-F Manual Assessment Start: 09/03/24 10:44 Freq: Status: Active Protocol: Document 09/03/24 10:46 BL (Rec: 09/03/24 19:12 BL Laptop) Manual Assessments Other Manual Assessments Other Manual Pt demos level pelvis with equal leg lengths noted in Assessments supine. Pt is point tender over hemal ASIS with L>R. Pt also demos point tenderness through L glute medial area and TFL. Pt demos Trendelenburg gait with L sided lean . PT-OP-H Neuro Start: 09/03/24 10:44 Freq: Status: Active Protocol: Document 09/03/24 10:46 BL (Rec: 09/03/24 19:12 BL Laptop) Sensation Evaluation Comments Summary Comments Pt reports numbness to R foot that waxes and wanes, currently improving. Coordination Evaluation Comments Coordination Pt reports decreased coordination however demos normal Comments heel to headley hemal PT-OP-J Posture/Palpation/Skin Start: 09/03/24 10:44 Freq: Status: Active Protocol: Document 09/03/24 10:46 BL (Rec: 09/03/24 19:12 BL Laptop) Posture Evaluation Comments Posture Comments Pt sit with posterior pelvic tile and leans on arms in chair. Palpation Assessment Location left Palpation Details . PT-OP-K Range of Motion Start: 09/03/24 10:44 Freq: Status: Active Protocol: Document 09/03/24 10:46 BL (Rec: 09/03/24 19:12 BL Laptop) Hip Goniometric Range of Motion Hip right Hip ROM WFL Yes left Hip ROM WFL Yes Comments anterior tightness noted into end range of flexion Knee Goniometric Range of Motion Knee left/right Comments WFL Hemal PT-OP-M Strength Start: 09/03/24 10:44 Freq: Status: Active Protocol: Document 09/03/24 10:46 BL (Rec: 09/03/24 19:12 BL Laptop) Hip Strength Hip Manual Muscle Testing Right Flexion (L2) 4+ Good+ Abduction 4+ Good+ Adduction 4+ Good+ External Rotation 4+ Good+ Internal Rotation 4 Good Left Flexion (L2) 4 Good Abduction 4+ Good+ Adduction 4+ Good+ External Rotation 4 Good Internal Rotation 4 Good Knee Strength Knee Manual Muscle Testing Right Flexion (S2) 4+ Good+ Extension (L3) 4 Good Left Flexion (S2) 4+ Good+ Extension (L3) 4- Good- PT-OP-Q Treatments Start: 09/03/24 10:44 Freq: Status: Active Protocol: Document 09/03/24 10:46 BL (Rec: 09/03/24 19:12 BL Laptop) Therapeutic Exercises Supine Exercises stretch Supine Exercise Name piriformis st, IT band stretch (leg cross over) Comments 3x30 sec PT-OP-T Assessment and Plan Start: 09/03/24 10:44 Freq: Status: Active Protocol: Document 09/03/24 10:46 BL (Rec: 09/03/24 19:12 BL Laptop) Physical Therapy Assessment Rehab Potential Rehabilitation Good Potential Evaluation Complexity Number of Personal 1-2 Factors/ Comorbidities Number of Body 3 Systems Impaired Clinical Evolving Presentation at Evaluation Goals Three Halfway Goal (LTG) Pt will report being able to stand/walk greater than 30 minutes without increase in symptoms to 5/10 or higher by DC for improved functional mobility. Two Halfway Goal (LTG) Pt will demo improved hip extension strength to 4/5 by DC to improve hip arthrokinematics for improved function with ADLs. One Short Term Goal (STG pt will be ind with HEP within 2 visits in order to ) progress toward intermediate frame tender therapy goals outside of therapy sessions Compensation Programs Manager Goal (LTG) Pt will demo improved LEFS score to 60% function or better by DC for improved quality of life. Assessment Summary Assessment pt presents with long standing L hip pain this date. Pt demos decreased hip strength with slight limitations due to pain at end ranges of motion. Pt demos normal bony alignment and ligaments testing does not reveal any inconsistencies this date. Most recent imaging shows mild-moderate degenerative changes. Pt will benefit from skilled Physical Therapy intervention for strength and endurance training to improve hip mobility and decreased pain symptoms with normal activity. Physical Therapy Plan Frequency and Duration Frequency of 2x/Week Treatment Duration of 12 treatment (weeks) Plan of Care Start 09/03/24 Date Plan of Care End 11/28/24 Date
--- NOTE | 2024-09-04 07:27 | PT.OPPOC ---
Physical, Occupational & Speech Therapy At [facility] Current Diagnoses Unspecified disorder of synovium and tendon, left thigh (09/03/24) Visit Care Team Role Provider Type Louis Gutierrez MD Family Provider Physician Primary Care Provider Specialty: Family Practice Address: [address] [place] [address] Email: [email or web address] Bernard Carrillo MD Attending Provider Physician Referring Provider Specialty: Orthopedics Orthopedic Surgery Address: [address] [place] [address], [id number] Fax: Email: [email or web address] Plan Of Care PT-OP-T Assessment and Plan Start: 09/03/24 10:44 Freq: Status: Active Protocol: Document 09/03/24 10:46 BL (Rec: 09/03/24 19:12 BL Laptop) Physical Therapy Assessment Rehab Potential Rehabilitation Good Potential Evaluation Complexity Number of Personal 1-2 Factors/ Comorbidities Number of Body 3 Systems Impaired Clinical Evolving Presentation at Evaluation Goals Three Head Cashier Goal (LTG) Pt will report being able to stand/walk greater than 30 minutes without increase in symptoms to 5/10 or higher by DC for improved functional mobility. Two Head Cashier Goal (LTG) Pt will demo improved hip extension strength to 4/5 by DC to improve hip arthrokinematics for improved function with ADLs. One Short Term Goal (STG pt will be ind with HEP within 2 visits in order to ) progress toward fdc therapy goals outside of therapy sessions Correction Goal (LTG) Pt will demo improved LEFS score to 60% function or better by DC for improved quality of life. Assessment Summary Assessment pt presents with long standing L hip pain this date. Pt demos decreased hip strength with slight limitations due to pain at end ranges of motion. Pt demos normal bony alignment and ligaments testing does not reveal any inconsistencies this date. Most recent imaging shows mild-moderate degenerative changes. Pt will benefit from skilled Physical Therapy intervention for strength and endurance training to improve hip mobility and decreased pain symptoms with normal activity. Physical Therapy Plan Frequency and Duration Frequency of 2x/Week Treatment Duration of 12 treatment (weeks) Plan of Care Start 09/03/24 Date Plan of Care End 11/28/24 Date Plan of Care Dates Plan of Care Start Date 09/03/24 Plan of Care End Date 11/28/24 Electronically Signed by: Toni Lenz, KIMBERLY 09/04/24 0727 If you are in agreement with this Plan of Care, please return a signed and dated copy. I have reviewed this Plan of Care and certify that the skilled therapy services above are required to meet the patient?s needs. Physician Signature Date Printed Name and Credentials Clinical Instructor Signature Printed Name and Credentials
--- NOTE | 2024-09-05 10:46 | PT.OTN ---
Current Diagnoses Unspecified disorder of synovium and tendon, left thigh (09/05/24) Physical Therapy Treatment Note PT-OP-A Visit Information Start: 09/03/24 10:44 Freq: Status: Active Protocol: Document 09/05/24 09:47 AB (Rec: 09/05/24 10:46 AB [id number]) Out-Patient Physical Therapy Visit Information Visit Information Visit Type Treatment Note Visit Start Time 10:45 Visit Stop Time 11:36 Visit Number (2)2/10 (PN by 10/04/24) Number of FREIGHT FLOW SALES LEADER Visits 1 Evaluation Information Evaluation Date 09/03/24 PT-OP-C Subjective Start: 09/03/24 10:44 Freq: Status: Active Protocol: Document 09/05/24 09:47 AB (Rec: 09/05/24 10:46 AB [id number]) OP-PT Subjective Patient Comments Patient Comments Patient into clinic with small based quad cane, carrying cane into clinic. Patient ambulates with ipsilateral trunk sidebend stance phase bilaterally, rating pain 5/10 start of session L hip. SLS 6 sec without UE use with head turns dec to 1-2 sec. PT-OP-F Manual Assessment Start: 09/03/24 10:44 Freq: Status: Active Protocol: Document 09/03/24 10:46 BL (Rec: 09/03/24 19:12 BL Laptop) Manual Assessments Other Manual Assessments Other Manual Pt demos level pelvis with equal leg lengths noted in Assessments supine. Pt is point tender over genaro ASIS with L>R. Pt also demos point tenderness through L glute medial area and TFL. Pt demos Trendelenburg gait with L sided lean . PT-OP-H Neuro Start: 09/03/24 10:44 Freq: Status: Active Protocol: Document 09/03/24 10:46 BL (Rec: 09/03/24 19:12 BL Laptop) Sensation Evaluation Comments Summary Comments Pt reports numbness to R foot that waxes and wanes, currently improving. Coordination Evaluation Comments Coordination Pt reports decreased coordination however demos normal Comments heel to headley genaro PT-OP-J Posture/Palpation/Skin Start: 09/03/24 10:44 Freq: Status: Active Protocol: Document 09/03/24 10:46 BL (Rec: 09/03/24 19:12 BL Laptop) Posture Evaluation Comments Posture Comments Pt sit with posterior pelvic tile and leans on arms in chair. Palpation Assessment Location left Palpation Details . PT-OP-K Range of Motion Start: 09/03/24 10:44 Freq: Status: Active Protocol: Document 09/03/24 10:46 BL (Rec: 09/03/24 19:12 BL Laptop) Hip Goniometric Range of Motion Hip right Hip ROM WFL Yes left Hip ROM WFL Yes Comments anterior tightness noted into end range of flexion Knee Goniometric Range of Motion Knee left/right Comments WFL Genaro PT-OP-M Strength Start: 09/03/24 10:44 Freq: Status: Active Protocol: Document 09/03/24 10:46 BL (Rec: 09/03/24 19:12 BL Laptop) Hip Strength Hip Manual Muscle Testing Right Flexion (L2) 4+ Good+ Abduction 4+ Good+ Adduction 4+ Good+ External Rotation 4+ Good+ Internal Rotation 4 Good Left Flexion (L2) 4 Good Abduction 4+ Good+ Adduction 4+ Good+ External Rotation 4 Good Internal Rotation 4 Good Knee Strength Knee Manual Muscle Testing Right Flexion (S2) 4+ Good+ Extension (L3) 4 Good Left Flexion (S2) 4+ Good+ Extension (L3) 4- Good- PT-OP-Q Treatments Start: 09/03/24 10:44 Freq: Status: Active Protocol: Document 09/05/24 09:47 AB (Rec: 09/05/24 10:46 AB [id number]) Therapeutic Exercises Supine Exercises bridge Supine Exercise Name HEP Reps/Minutes X10 Comments vc stretch Supine Exercise Name Mod Giovani stretch HEP Side bilateral Reps/Minutes 60s each LE X 2 Comments verbal cues Sidelying Exercises hip abd Side left Reps/Minutes X 2 Comments not cynthia Sitting Exercises seated hip abd with band Sitting Exercise HEP Name Side bilateral Resistance level 3 band Reps/Minutes one minute X 1 Comments second trial one min increased verbal and visual cues for LE position. Standing Exercises sit to stand Standing Exercise BP 94/56 HR 72 seated L UE 86/45 HR 79 standing L UE Name Comments BP check due to c/o dizzy with sit to standing Gait Training Gait Activity SPC Description stairs X 2 ( six inch stairs X 4) Comments SPC adjusted for height, Verbal cues for sequence tech to use of right side for L UE and then stair training up with unaffected R down with affected LE PT-OP-T Assessment and Plan Start: 09/03/24 10:44 Freq: Status: Active Protocol: Document 09/05/24 09:47 AB (Rec: 09/05/24 10:46 AB [id number]) Physical Therapy Assessment Goals Three Software Performance Engineer Goal (LTG) Pt will report being able to stand/walk greater than 30 minutes without increase in symptoms to 5/10 or higher by DC for improved functional mobility. Two Software Performance Engineer Goal (LTG) Pt will demo improved hip extension strength to 4/5 by DC to improve hip arthrokinematics for improved function with ADLs. One Short Term Goal (STG pt will be ind with HEP within 2 visits in order to ) progress toward lobsterman therapy goals outside of therapy sessions Senior Living Goal (LTG) Pt will demo improved LEFS score to 60% function or better by DC for improved quality of life. Assessment Summary Assessment BP standing end of session 90/57 74 end of session L UE . Patient reports pain is less than it was when she came into session. Physical Therapy Plan Frequency and Duration Frequency of 2x/Week Treatment Duration of 12 treatment (weeks) Plan of Care Start 09/03/24 Date Plan of Care End 11/28/24 Date Next Visit Focus/Plan Next Visit Plan Possibly revisit sidelying hip abd.
--- NOTE | 2024-09-10 10:36 | PT.OTN ---
Current Diagnoses Unspecified disorder of synovium and tendon, left thigh (09/10/24) Physical Therapy Treatment Note PT-OP-A Visit Information Start: 09/03/24 10:44 Freq: Status: Active Protocol: Document 09/10/24 09:47 BL (Rec: 09/10/24 10:36 BL Laptop) Out-Patient Physical Therapy Visit Information Visit Information Visit Type Treatment Note Visit Start Time 09:45 Visit Stop Time 10:25 Visit Number (3)3/10 (PN by 10/04/24) Number of RENT AND HOUSING INVESTIGATOR Visits 0 PT-OP-C Subjective Start: 09/03/24 10:44 Freq: Status: Active Protocol: Document 09/10/24 09:47 BL (Rec: 09/10/24 10:36 BL Laptop) OP-PT Subjective Patient Comments Patient Comments Pt presents to the clinic this date and reports she is doing well, states she did better with walking this past weekend and has had less pain overall. PT-OP-F Manual Assessment Start: 09/03/24 10:44 Freq: Status: Active Protocol: Document 09/03/24 10:46 BL (Rec: 09/03/24 19:12 BL Laptop) Manual Assessments Other Manual Assessments Other Manual Pt demos level pelvis with equal leg lengths noted in Assessments supine. Pt is point tender over genaro ASIS with L>R. Pt also demos point tenderness through L glute medial area and TFL. Pt demos Trendelenburg gait with L sided lean . PT-OP-H Neuro Start: 09/03/24 10:44 Freq: Status: Active Protocol: Document 09/03/24 10:46 BL (Rec: 09/03/24 19:12 BL Laptop) Sensation Evaluation Comments Summary Comments Pt reports numbness to R foot that waxes and wanes, currently improving. Coordination Evaluation Comments Coordination Pt reports decreased coordination however demos normal Comments heel to headley genaro PT-OP-J Posture/Palpation/Skin Start: 09/03/24 10:44 Freq: Status: Active Protocol: Document 09/03/24 10:46 BL (Rec: 09/03/24 19:12 BL Laptop) Posture Evaluation Comments Posture Comments Pt sit with posterior pelvic tile and leans on arms in chair. Palpation Assessment Location left Palpation Details . PT-OP-K Range of Motion Start: 09/03/24 10:44 Freq: Status: Active Protocol: Document 09/03/24 10:46 BL (Rec: 09/03/24 19:12 BL Laptop) Hip Goniometric Range of Motion Hip right Hip ROM WFL Yes left Hip ROM WFL Yes Comments anterior tightness noted into end range of flexion Knee Goniometric Range of Motion Knee left/right Comments WFL Genaro PT-OP-M Strength Start: 09/03/24 10:44 Freq: Status: Active Protocol: Document 09/03/24 10:46 BL (Rec: 09/03/24 19:12 BL Laptop) Hip Strength Hip Manual Muscle Testing Right Flexion (L2) 4+ Good+ Abduction 4+ Good+ Adduction 4+ Good+ External Rotation 4+ Good+ Internal Rotation 4 Good Left Flexion (L2) 4 Good Abduction 4+ Good+ Adduction 4+ Good+ External Rotation 4 Good Internal Rotation 4 Good Knee Strength Knee Manual Muscle Testing Right Flexion (S2) 4+ Good+ Extension (L3) 4 Good Left Flexion (S2) 4+ Good+ Extension (L3) 4- Good- PT-OP-Q Treatments Start: 09/03/24 10:44 Freq: Status: Active Protocol: Document 09/10/24 09:47 BL (Rec: 09/10/24 10:36 BL Laptop) Therapeutic Exercises Supine Exercises bridge Supine Exercise Name Added Lvl 3 band Reps/Minutes X10 Comments vc stretch Supine Exercise Name Mod Giovani stretch HEP, IT band st Side bilateral Reps/Minutes 60s each LE X 2 Comments verbal cues Sitting Exercises seated hip abd with band Sitting Exercise Trialed supine with heel digs Name Side bilateral Resistance level 3 band Reps/Minutes 10x with Comments second trial one min increased verbal and visual cues for LE position. Standing Exercises sit to stand Standing Exercise BP seated 105/59 Name Comments BP check due to c/o dizzy with sit to standing PT-OP-T Assessment and Plan Start: 09/03/24 10:44 Freq: Status: Active Protocol: Document 09/10/24 09:47 BL (Rec: 09/10/24 10:36 BL Laptop) Physical Therapy Assessment Goals Three Correction Goal (LTG) Pt will report being able to stand/walk greater than 30 minutes without increase in symptoms to 5/10 or higher by DC for improved functional mobility. Two Tricot Knitter Goal (LTG) Pt will demo improved hip extension strength to 4/5 by DC to improve hip arthrokinematics for improved function with ADLs. One Short Term Goal (STG pt will be ind with HEP within 2 visits in order to ) progress toward retirement therapy goals outside of therapy sessions Correction Goal (LTG) Pt will demo improved LEFS score to 60% function or better by DC for improved quality of life. Assessment Summary Assessment Pt tolerates session well, demos improved hip abduction strength this date. Pt continues to fatigue quickly with abduction strengthening. Physical Therapy Plan Frequency and Duration Frequency of 2x/Week Treatment Duration of 12 treatment (weeks) Plan of Care Start 09/03/24 Date Plan of Care End 11/28/24 Date
--- NOTE | 2024-09-13 10:32 | PT.OTN ---
Current Diagnoses Unspecified disorder of synovium and tendon, left thigh (09/13/24) Physical Therapy Treatment Note PT-OP-A Visit Information Start: 09/03/24 10:44 Freq: Status: Active Protocol: Document 09/13/24 09:47 BL (Rec: 09/13/24 10:32 BL Laptop) Out-Patient Physical Therapy Visit Information Visit Information Visit Type Treatment Note Visit Start Time 09:45 Visit Stop Time 10:25 Visit Number (4) 4/10 (PN by 10/04/24) Number of STUDENT RECORDS SPECIALIST Visits 0 PT-OP-C Subjective Start: 09/03/24 10:44 Freq: Status: Active Protocol: Document 09/13/24 09:47 BL (Rec: 09/13/24 10:32 BL Laptop) OP-PT Subjective Patient Comments Patient Comments Pt presents to the clinic this date and reports she is doing well, reports no pain. States HEP is going well. PT-OP-F Manual Assessment Start: 09/03/24 10:44 Freq: Status: Active Protocol: Document 09/03/24 10:46 BL (Rec: 09/03/24 19:12 BL Laptop) Manual Assessments Other Manual Assessments Other Manual Pt demos level pelvis with equal leg lengths noted in Assessments supine. Pt is point tender over genaro ASIS with L>R. Pt also demos point tenderness through L glute medial area and TFL. Pt demos Trendelenburg gait with L sided lean . PT-OP-H Neuro Start: 09/03/24 10:44 Freq: Status: Active Protocol: Document 09/03/24 10:46 BL (Rec: 09/03/24 19:12 BL Laptop) Sensation Evaluation Comments Summary Comments Pt reports numbness to R foot that waxes and wanes, currently improving. Coordination Evaluation Comments Coordination Pt reports decreased coordination however demos normal Comments heel to headley genaro PT-OP-J Posture/Palpation/Skin Start: 09/03/24 10:44 Freq: Status: Active Protocol: Document 09/03/24 10:46 BL (Rec: 09/03/24 19:12 BL Laptop) Posture Evaluation Comments Posture Comments Pt sit with posterior pelvic tile and leans on arms in chair. Palpation Assessment Location left Palpation Details . PT-OP-K Range of Motion Start: 09/03/24 10:44 Freq: Status: Active Protocol: Document 09/03/24 10:46 BL (Rec: 09/03/24 19:12 BL Laptop) Hip Goniometric Range of Motion Hip right Hip ROM WFL Yes left Hip ROM WFL Yes Comments anterior tightness noted into end range of flexion Knee Goniometric Range of Motion Knee left/right Comments WFL Genaro PT-OP-M Strength Start: 09/03/24 10:44 Freq: Status: Active Protocol: Document 09/03/24 10:46 BL (Rec: 09/03/24 19:12 BL Laptop) Hip Strength Hip Manual Muscle Testing Right Flexion (L2) 4+ Good+ Abduction 4+ Good+ Adduction 4+ Good+ External Rotation 4+ Good+ Internal Rotation 4 Good Left Flexion (L2) 4 Good Abduction 4+ Good+ Adduction 4+ Good+ External Rotation 4 Good Internal Rotation 4 Good Knee Strength Knee Manual Muscle Testing Right Flexion (S2) 4+ Good+ Extension (L3) 4 Good Left Flexion (S2) 4+ Good+ Extension (L3) 4- Good- PT-OP-Q Treatments Start: 09/03/24 10:44 Freq: Status: Active Protocol: Document 09/13/24 09:47 BL (Rec: 09/13/24 10:32 BL Laptop) Therapeutic Exercises Supine Exercises bridge Supine Exercise Name Lvl 3 band and heel digs Reps/Minutes X10 Comments vc stretch Supine Exercise Name Mod Giovani stretch HEP, IT band st Side bilateral Reps/Minutes 60s each LE X 2 Comments verbal cues Sidelying Exercises hip abd Sidelying Exercise clamshells/ reverse clamshells Name Sitting Exercises seated hip abd with band Sitting Exercise supine with heel digs Name Side bilateral Resistance level 3 band Reps/Minutes 10x with Comments second trial one min increased verbal and visual cues for LE position. Standing Exercises sit to stand Standing Exercise lateral walking Name Resistance 0# Gait Training Gait Activity SPC Description SPC education Comments adjusted height and cues for R UE placement and sequencing. PT-OP-T Assessment and Plan Start: 09/03/24 10:44 Freq: Status: Active Protocol: Document 09/13/24 09:47 BL (Rec: 09/13/24 10:32 BL Laptop) Physical Therapy Assessment Goals Three Human Resources Manager Goal (LTG) Pt will report being able to stand/walk greater than 30 minutes without increase in symptoms to 5/10 or higher by DC for improved functional mobility. Two Human Resources Manager Goal (LTG) Pt will demo improved hip extension strength to 4/5 by DC to improve hip arthrokinematics for improved function with ADLs. One Short Term Goal (STG pt will be ind with HEP within 2 visits in order to ) progress toward terminal supervisor therapy goals outside of therapy sessions Long-Term Goal (LTG) Pt will demo improved LEFS score to 60% function or better by DC for improved quality of life. Assessment Summary Assessment Pt tolerates session well, demos improved hip abduction strength this date. Pt continues to fatigue quickly with abduction strengthening. Physical Therapy Plan Frequency and Duration Frequency of 2x/Week Treatment Duration of 12 treatment (weeks) Plan of Care Start 09/03/24 Date Plan of Care End 11/28/24 Date
--- NOTE | 2024-09-18 13:47 | PT.OTN ---
Current Diagnoses Unspecified disorder of synovium and tendon, left thigh (09/18/24) Physical Therapy Treatment Note PT-OP-A Visit Information Start: 09/03/24 10:44 Freq: Status: Active Protocol: Document 09/18/24 13:02 BL (Rec: 09/18/24 13:47 BL Laptop) Out-Patient Physical Therapy Visit Information Visit Information Visit Type Treatment Note Visit Start Time 09:45 Visit Stop Time 10:25 Visit Number (5) 5/10 (PN by 10/04/24) Number of LEAD BURNER Visits 0 PT-OP-C Subjective Start: 09/03/24 10:44 Freq: Status: Active Protocol: Document 09/18/24 13:02 BL (Rec: 09/18/24 13:47 BL Laptop) OP-PT Subjective Patient Comments Patient Comments Pt presents to the clinic this date and reports she is doing well, pt states no pain other than if she sits for greater than 30-45 minutes. PT-OP-F Manual Assessment Start: 09/03/24 10:44 Freq: Status: Active Protocol: Document 09/03/24 10:46 BL (Rec: 09/03/24 19:12 BL Laptop) Manual Assessments Other Manual Assessments Other Manual Pt demos level pelvis with equal leg lengths noted in Assessments supine. Pt is point tender over genaro ASIS with L>R. Pt also demos point tenderness through L glute medial area and TFL. Pt demos Trendelenburg gait with L sided lean . PT-OP-H Neuro Start: 09/03/24 10:44 Freq: Status: Active Protocol: Document 09/03/24 10:46 BL (Rec: 09/03/24 19:12 BL Laptop) Sensation Evaluation Comments Summary Comments Pt reports numbness to R foot that waxes and wanes, currently improving. Coordination Evaluation Comments Coordination Pt reports decreased coordination however demos normal Comments heel to headley genaro PT-OP-J Posture/Palpation/Skin Start: 09/03/24 10:44 Freq: Status: Active Protocol: Document 09/03/24 10:46 BL (Rec: 09/03/24 19:12 BL Laptop) Posture Evaluation Comments Posture Comments Pt sit with posterior pelvic tile and leans on arms in chair. Palpation Assessment Location left Palpation Details . PT-OP-K Range of Motion Start: 09/03/24 10:44 Freq: Status: Active Protocol: Document 09/03/24 10:46 BL (Rec: 09/03/24 19:12 BL Laptop) Hip Goniometric Range of Motion Hip right Hip ROM WFL Yes left Hip ROM WFL Yes Comments anterior tightness noted into end range of flexion Knee Goniometric Range of Motion Knee left/right Comments WFL Genaro PT-OP-M Strength Start: 09/03/24 10:44 Freq: Status: Active Protocol: Document 09/03/24 10:46 BL (Rec: 09/03/24 19:12 BL Laptop) Hip Strength Hip Manual Muscle Testing Right Flexion (L2) 4+ Good+ Abduction 4+ Good+ Adduction 4+ Good+ External Rotation 4+ Good+ Internal Rotation 4 Good Left Flexion (L2) 4 Good Abduction 4+ Good+ Adduction 4+ Good+ External Rotation 4 Good Internal Rotation 4 Good Knee Strength Knee Manual Muscle Testing Right Flexion (S2) 4+ Good+ Extension (L3) 4 Good Left Flexion (S2) 4+ Good+ Extension (L3) 4- Good- PT-OP-Q Treatments Start: 09/03/24 10:44 Freq: Status: Active Protocol: Document 09/18/24 13:02 BL (Rec: 09/18/24 13:47 BL Laptop) Therapeutic Exercises Supine Exercises bridge Supine Exercise Name Lvl 3 band and heel digs Reps/Minutes X10 Comments vc stretch Supine Exercise Name Mod Giovani stretch (reviewed) Side bilateral Reps/Minutes 60s each LE X 2 Comments verbal cues Sidelying Exercises hip abd Sidelying Exercise clamshells Name Equipment Used lvl 3 band Sitting Exercises seated hip abd with band Sitting Exercise supine with heel digs Name Side bilateral Resistance level 3 band Reps/Minutes 10x with Comments second trial one min increased verbal and visual cues for LE position. Standing Exercises sit to stand Standing Exercise lateral walking, heel taps Name Resistance lvl 3 band PT-OP-T Assessment and Plan Start: 09/03/24 10:44 Freq: Status: Active Protocol: Document 09/18/24 13:02 BL (Rec: 09/18/24 13:47 BL Laptop) Physical Therapy Assessment Goals Three Line Up Machine Operator Goal (LTG) Pt will report being able to stand/walk greater than 30 minutes without increase in symptoms to 5/10 or higher by DC for improved functional mobility. Two Senior Living Goal (LTG) Pt will demo improved hip extension strength to 4/5 by DC to improve hip arthrokinematics for improved function with ADLs. One Short Term Goal (STG pt will be ind with HEP within 2 visits in order to ) progress toward emt intermediate therapy goals outside of therapy sessions Senior Living Goal (LTG) Pt will demo improved LEFS score to 60% function or better by DC for improved quality of life. Assessment Summary Assessment Pt tolerates session well, demos improved hip abduction strength this date. Pt continues to fatigue quickly with abduction strengthening. Physical Therapy Plan Frequency and Duration Frequency of 2x/Week Treatment Duration of 12 treatment (weeks) Plan of Care Start 09/03/24 Date Plan of Care End 11/28/24 Date
--- NOTE | 2024-09-25 11:34 | PT.OTN ---
Current Diagnoses Unspecified disorder of synovium and tendon, left thigh (09/25/24) Physical Therapy Treatment Note PT-OP-A Visit Information Start: 09/03/24 10:44 Freq: Status: Active Protocol: Document 09/25/24 09:45 AB (Rec: 09/25/24 10:46 AB [id number]) Out-Patient Physical Therapy Visit Information Visit Information Visit Type Treatment Note Visit Start Time 09:48 Visit Stop Time 10:45 Visit Number 7 09/12 (PN by 10/04/24) Number of BOTTLE HOP Visits 1 Evaluation Information Evaluation Date 09/03/24 PT-OP-C Subjective Start: 09/03/24 10:44 Freq: Status: Active Protocol: Document 09/25/24 09:45 AB (Rec: 09/25/24 10:46 AB [id number]) OP-PT Subjective Patient Comments Patient Comments Patient reports she is much better, reports still has pain post sitting for too long. Patient ascends and descends 6 inch stairs without rails ascending one rail descending, using a reciprocal pattern reports pain lateral L hip. Patient reports she was able to walk for the [employer] and in town 06 of September. PT-OP-F Manual Assessment Start: 09/03/24 10:44 Freq: Status: Active Protocol: Document 09/03/24 10:46 BL (Rec: 09/03/24 19:12 BL Laptop) Manual Assessments Other Manual Assessments Other Manual Pt demos level pelvis with equal leg lengths noted in Assessments supine. Pt is point tender over genaro ASIS with L>R. Pt also demos point tenderness through L glute medial area and TFL. Pt demos Trendelenburg gait with L sided lean . PT-OP-H Neuro Start: 09/03/24 10:44 Freq: Status: Active Protocol: Document 09/03/24 10:46 BL (Rec: 09/03/24 19:12 BL Laptop) Sensation Evaluation Comments Summary Comments Pt reports numbness to R foot that waxes and wanes, currently improving. Coordination Evaluation Comments Coordination Pt reports decreased coordination however demos normal Comments heel to headley genaro PT-OP-J Posture/Palpation/Skin Start: 09/03/24 10:44 Freq: Status: Active Protocol: Document 09/03/24 10:46 BL (Rec: 09/03/24 19:12 BL Laptop) Posture Evaluation Comments Posture Comments Pt sit with posterior pelvic tile and leans on arms in chair. Palpation Assessment Location left Palpation Details . PT-OP-K Range of Motion Start: 09/03/24 10:44 Freq: Status: Active Protocol: Document 09/03/24 10:46 BL (Rec: 09/03/24 19:12 BL Laptop) Hip Goniometric Range of Motion Hip right Hip ROM WFL Yes left Hip ROM WFL Yes Comments anterior tightness noted into end range of flexion Knee Goniometric Range of Motion Knee left/right Comments WFL Genaro PT-OP-M Strength Start: 09/03/24 10:44 Freq: Status: Active Protocol: Document 09/03/24 10:46 BL (Rec: 09/03/24 19:12 BL Laptop) Hip Strength Hip Manual Muscle Testing Right Flexion (L2) 4+ Good+ Abduction 4+ Good+ Adduction 4+ Good+ External Rotation 4+ Good+ Internal Rotation 4 Good Left Flexion (L2) 4 Good Abduction 4+ Good+ Adduction 4+ Good+ External Rotation 4 Good Internal Rotation 4 Good Knee Strength Knee Manual Muscle Testing Right Flexion (S2) 4+ Good+ Extension (L3) 4 Good Left Flexion (S2) 4+ Good+ Extension (L3) 4- Good- PT-OP-Q Treatments Start: 09/03/24 10:44 Freq: Status: Active Protocol: Document 09/25/24 09:45 AB (Rec: 09/25/24 10:46 AB [id number]) Therapeutic Exercises Supine Exercises bridge Supine Exercise Name Lvl 4 band and heel digs Reps/Minutes X10 without band then with level 4 band Comments vc stretch Supine Exercise Name Mod Giovani stretch, piriformis and figure 4 Side bilateral Reps/Minutes 60s each LE X 1 each stretch with AROM knee flexion end of Darron stretch Comments verbal cues Sidelying Exercises hip abd Sidelying Exercise hip abd Name Equipment Used lvl 3 band Reps/Minutes X10 Comments verbal and tactile cues Sitting Exercises seated hip abd with band Side bilateral Resistance level 3 band Reps/Minutes one min X 1 for glute med activation Comments Patient reports no change in pain on stairs post glut med activation Standing Exercises hip extension Standing Exercise leaning on plinth at counter height HEP Name Side bilateral Reps/Minutes X 10 Comments verbal and visual cues Manual Therapy Treatment Consent Patient gave verbal Yes consent for manual treatment Soft Tissue Mobilization L hip Body Location glute/piriformis and illipsoas Mobilization Type Cross-Friction,Rolling,Other Intensity/Depth Moderate Body Position Hooklying Comments and sidelying also superficial PT-OP-R Modalities Start: 09/03/24 10:44 Freq: Status: Active Protocol: Document 09/25/24 09:45 AB (Rec: 09/25/24 10:46 AB [id number]) Hot Pack/Cold Pack Treatment ice pac Location L hip Patient Position Hooklying Patient Tolerance Good Comments X 15 min PT-OP-T Assessment and Plan Start: 09/03/24 10:44 Freq: Status: Active Protocol: Document 09/25/24 09:45 AB (Rec: 09/25/24 10:46 AB [id number]) Physical Therapy Assessment Goals Three Comber Tender Goal (LTG) Pt will report being able to stand/walk greater than 30 minutes without increase in symptoms to 5/10 or higher by DC for improved functional mobility. Two Assisted Goal (LTG) Pt will demo improved hip extension strength to 4/5 by DC to improve hip arthrokinematics for improved function with ADLs. One Short Term Goal (STG pt will be ind with HEP within 2 visits in order to ) progress toward fdc therapy goals outside of therapy sessions Assisted Goal (LTG) Pt will demo improved LEFS score to 60% function or better by DC for improved quality of life. Assessment Summary Assessment Difficulty with hip extension persists. Patient reports less pain descending stairs L hip post manual and exercise, but pain is not eliminated. Physical Therapy Plan Frequency and Duration Frequency of 2x/Week Treatment Duration of 12 treatment (weeks) Plan of Care Start 09/03/24 Date Plan of Care End 11/28/24 Date Next Visit Focus/Plan Next Note Type Treatment Note Next Visit Plan revisit sidelying hip abd and ext in standing/upper body resting on trunk
--- NOTE | 2024-09-27 12:19 | PT.OTN ---
Current Diagnoses Unspecified disorder of synovium and tendon, left thigh (09/27/24) Physical Therapy Treatment Note PT-OP-A Visit Information Start: 09/03/24 10:44 Freq: Status: Active Protocol: Document 09/27/24 11:35 BL (Rec: 09/27/24 12:19 BL Laptop) Out-Patient Physical Therapy Visit Information Visit Information Visit Type Treatment Note Visit Start Time 11:30 Visit Stop Time 12:10 Visit Number 8 10/13 (PN by 10/04/24) Number of CASE MAKER Visits 0 PT-OP-C Subjective Start: 09/03/24 10:44 Freq: Status: Active Protocol: Document 09/27/24 11:35 BL (Rec: 09/27/24 12:19 BL Laptop) OP-PT Subjective Patient Comments Patient Comments Pt presents to the clinic this date and reports she is doing well, states she had low BP at her follow up this morning. Start of session 118/52. End of session 98/53 . PT-OP-F Manual Assessment Start: 09/03/24 10:44 Freq: Status: Active Protocol: Document 09/03/24 10:46 BL (Rec: 09/03/24 19:12 BL Laptop) Manual Assessments Other Manual Assessments Other Manual Pt demos level pelvis with equal leg lengths noted in Assessments supine. Pt is point tender over genaro ASIS with L>R. Pt also demos point tenderness through L glute medial area and TFL. Pt demos Trendelenburg gait with L sided lean . PT-OP-H Neuro Start: 09/03/24 10:44 Freq: Status: Active Protocol: Document 09/03/24 10:46 BL (Rec: 09/03/24 19:12 BL Laptop) Sensation Evaluation Comments Summary Comments Pt reports numbness to R foot that waxes and wanes, currently improving. Coordination Evaluation Comments Coordination Pt reports decreased coordination however demos normal Comments heel to headley genaro PT-OP-J Posture/Palpation/Skin Start: 09/03/24 10:44 Freq: Status: Active Protocol: Document 09/03/24 10:46 BL (Rec: 09/03/24 19:12 BL Laptop) Posture Evaluation Comments Posture Comments Pt sit with posterior pelvic tile and leans on arms in chair. Palpation Assessment Location left Palpation Details . PT-OP-K Range of Motion Start: 09/03/24 10:44 Freq: Status: Active Protocol: Document 09/03/24 10:46 BL (Rec: 09/03/24 19:12 BL Laptop) Hip Goniometric Range of Motion Hip right Hip ROM WFL Yes left Hip ROM WFL Yes Comments anterior tightness noted into end range of flexion Knee Goniometric Range of Motion Knee left/right Comments WFL Genaro PT-OP-M Strength Start: 09/03/24 10:44 Freq: Status: Active Protocol: Document 09/03/24 10:46 BL (Rec: 09/03/24 19:12 BL Laptop) Hip Strength Hip Manual Muscle Testing Right Flexion (L2) 4+ Good+ Abduction 4+ Good+ Adduction 4+ Good+ External Rotation 4+ Good+ Internal Rotation 4 Good Left Flexion (L2) 4 Good Abduction 4+ Good+ Adduction 4+ Good+ External Rotation 4 Good Internal Rotation 4 Good Knee Strength Knee Manual Muscle Testing Right Flexion (S2) 4+ Good+ Extension (L3) 4 Good Left Flexion (S2) 4+ Good+ Extension (L3) 4- Good- PT-OP-Q Treatments Start: 09/03/24 10:44 Freq: Status: Active Protocol: Document 09/27/24 11:35 BL (Rec: 09/27/24 12:19 BL Laptop) Therapeutic Exercises Supine Exercises bridge Supine Exercise Name Lvl 4 band and heel digs Reps/Minutes X10 without band then with level 4 band Comments vc stretch Supine Exercise Name Mod Giovani stretch, piriformis and figure 4 Side bilateral Reps/Minutes 60s each LE X 1 each stretch with AROM knee flexion end of Darron stretch Comments verbal cues Sidelying Exercises hip abd Sidelying Exercise clamshells with IR bias Name Equipment Used lvl 3 band Reps/Minutes X10 Comments verbal and tactile cues Standing Exercises hip abduction Standing Exercise UE supported on wobble surface Name Resistance lvl 1 band Comments 10 x, cues for hip shift. hip extension Standing Exercise leaning on plinth at counter height HEP Name Side bilateral Reps/Minutes X 10 Comments verbal and visual cues Manual Therapy Treatment Consent Patient gave verbal Yes consent for manual treatment Soft Tissue Mobilization L hip Body Location glute/piriformis and illipsoas Mobilization Type Cross-Friction,Rolling,Other Intensity/Depth Moderate Body Position Hooklying Comments and sidelying also superficial PT-OP-R Modalities Start: 09/03/24 10:44 Freq: Status: Active Protocol: Document 09/25/24 09:45 AB (Rec: 09/25/24 10:46 AB [id number]) Hot Pack/Cold Pack Treatment ice pac Location L hip Patient Position Hooklying Patient Tolerance Good Comments X 15 min PT-OP-T Assessment and Plan Start: 09/03/24 10:44 Freq: Status: Active Protocol: Document 09/27/24 11:35 BL (Rec: 09/27/24 12:19 BL Laptop) Physical Therapy Assessment Goals Three Welding Machine Operator Submerged Arc Goal (LTG) Pt will report being able to stand/walk greater than 30 minutes without increase in symptoms to 5/10 or higher by DC for improved functional mobility. Two Welding Machine Operator Submerged Arc Goal (LTG) Pt will demo improved hip extension strength to 4/5 by DC to improve hip arthrokinematics for improved function with ADLs. One Short Term Goal (STG pt will be ind with HEP within 2 visits in order to ) progress toward exterminator termite therapy goals outside of therapy sessions Care Home Goal (LTG) Pt will demo improved LEFS score to 60% function or better by DC for improved quality of life. Assessment Summary Assessment Pt continues to demo improved hip stability strength this date. Pt continues to have discomfort in L hip and tissues continue to feel tight however symptoms continue to improve. Physical Therapy Plan Frequency and Duration Frequency of 2x/Week Treatment Duration of 12 treatment (weeks) Plan of Care Start 09/03/24 Plan of Care End 11/28/24 Date
--- NOTE | 2024-10-01 13:53 | PT.OTN ---
Current Diagnoses Unspecified disorder of synovium and tendon, left thigh (10/01/24) Physical Therapy Treatment Note PT-OP-A Visit Information Start: 09/03/24 10:44 Freq: Status: Active Protocol: Document 10/01/24 13:00 SAK (Rec: 10/01/24 13:53 SAK Laptop) Out-Patient Physical Therapy Visit Information Visit Information Visit Type Treatment Note Visit Start Time 13:02 Visit Stop Time 13:42 Visit Number 9 10/13 (PN by 10/04/24) Number of SPINNER FRAME Visits 0 Precautions Precautions Patient restricted to 50 oz water intake per day. PT-OP-C Subjective Start: 09/03/24 10:44 Freq: Status: Active Protocol: Document 10/01/24 13:00 SAK (Rec: 10/01/24 13:53 SAK Laptop) OP-PT Subjective Patient Comments Patient Comments Was extremely tired after last PT session, but also went to grocery store after. Comes to PT tired from appt getting hair cut and went to grocery store. Exercises easier than they were. Reports 79-90% compliant to HEP. Reports 75% better. Has not eaten yet today. PT-OP-F Manual Assessment Start: 09/03/24 10:44 Freq: Status: Active Protocol: Document 09/03/24 10:46 BL (Rec: 09/03/24 19:12 BL Laptop) Manual Assessments Other Manual Assessments Other Manual Pt demos level pelvis with equal leg lengths noted in Assessments supine. Pt is point tender over genaro ASIS with L>R. Pt also demos point tenderness through L glute medial area and TFL. Pt demos Trendelenburg gait with L sided lean . PT-OP-H Neuro Start: 09/03/24 10:44 Freq: Status: Active Protocol: Document 09/03/24 10:46 BL (Rec: 09/03/24 19:12 BL Laptop) Sensation Evaluation Comments Summary Comments Pt reports numbness to R foot that waxes and wanes, currently improving. Coordination Evaluation Comments Coordination Pt reports decreased coordination however demos normal Comments heel to headley genaro PT-OP-J Posture/Palpation/Skin Start: 09/03/24 10:44 Freq: Status: Active Protocol: Document 09/03/24 10:46 BL (Rec: 09/03/24 19:12 BL Laptop) Posture Evaluation Comments Posture Comments Pt sit with posterior pelvic tile and leans on arms in chair. Palpation Assessment Location left Palpation Details . PT-OP-K Range of Motion Start: 09/03/24 10:44 Freq: Status: Active Protocol: Document 09/03/24 10:46 BL (Rec: 09/03/24 19:12 BL Laptop) Hip Goniometric Range of Motion Hip right Hip ROM WFL Yes left Hip ROM WFL Yes Comments anterior tightness noted into end range of flexion Knee Goniometric Range of Motion Knee left/right Comments WFL Genaro PT-OP-M Strength Start: 09/03/24 10:44 Freq: Status: Active Protocol: Document 09/03/24 10:46 BL (Rec: 09/03/24 19:12 BL Laptop) Hip Strength Hip Manual Muscle Testing Right Flexion (L2) 4+ Good+ Abduction 4+ Good+ Adduction 4+ Good+ External Rotation 4+ Good+ Internal Rotation 4 Good Left Flexion (L2) 4 Good Abduction 4+ Good+ Adduction 4+ Good+ External Rotation 4 Good Internal Rotation 4 Good Knee Strength Knee Manual Muscle Testing Right Flexion (S2) 4+ Good+ Extension (L3) 4 Good Left Flexion (S2) 4+ Good+ Extension (L3) 4- Good- PT-OP-Q Treatments Start: 09/03/24 10:44 Freq: Status: Active Protocol: Document 10/01/24 13:00 SAK (Rec: 10/01/24 13:53 SAK Laptop) Cardio Equipment Recumbent Stepper (Sci-Fit) Duration (Minutes) 5 Resistance 1.5 Seat Position 9 Other postural cues, .7 mi, 40-86 rpm Therapeutic Exercises Supine Exercises stretch Supine Exercise Name Mod Giovani stretch, piriformis and figure 4 Side bilateral Reps/Minutes 60s each LE X 1 each stretch with AROM knee flexion end of Darron stretch Comments verbal cues Sidelying Exercises hip abd Sidelying Exercise clamshells with IR bias Name Equipment Used lvl 3 band Reps/Minutes X10 Comments verbal and tactile cues Sitting Exercises sit to stand Reps/Minutes 5x1, 6x1 Comments cues for slow, controlled, no hands ball squeeze Equipment Used green ball Reps/Minutes 10x seated hip abd with band Side bilateral Resistance level 3 band Reps/Minutes one min X 1 for glute med activation Comments Patient reports no change in pain on stairs post glut med activation Standing Exercises hip abduction Standing Exercise UE supported on wobble surface Name Resistance lvl 1 band distal thighs Comments 10 x, cues for hip shift. hip extension Standing Exercise leaning on plinth at counter height HEP Name Side bilateral Reps/Minutes X 10 Comments verbal and visual cues Manual Therapy Treatment Consent Patient gave verbal Yes consent for manual treatment Soft Tissue Mobilization L hip Body Location glute/piriformis and illipsoas Mobilization Type Cross-Friction,Rolling,Other Intensity/Depth Moderate Body Position Hooklying Comments and sidelying also superficial pillow between knees; encouraged for sleeping on side PT-OP-R Modalities Start: 09/03/24 10:44 Freq: Status: Active Protocol: Document 09/25/24 09:45 AB (Rec: 09/25/24 10:46 AB [id number]) Hot Pack/Cold Pack Treatment ice pac Location L hip Patient Position Hooklying Patient Tolerance Good Comments X 15 min PT-OP-T Assessment and Plan Start: 09/03/24 10:44 Freq: Status: Active Protocol: Document 10/01/24 13:00 SAK (Rec: 10/01/24 13:53 SAK Laptop) Physical Therapy Assessment Goals Three Fleet Dispatch Manager Goal (LTG) Pt will report being able to stand/walk greater than 30 minutes without increase in symptoms to 5/10 or higher by DC for improved functional mobility. Two Fleet Dispatch Manager Goal (LTG) Pt will demo improved hip extension strength to 4/5 by DC to improve hip arthrokinematics for improved function with ADLs. One Short Term Goal (STG pt will be ind with HEP within 2 visits in order to ) progress toward long-term therapy goals outside of therapy sessions Fleet Dispatch Manager Goal (LTG) Pt will demo improved LEFS score to 60% function or better by DC for improved quality of life. Assessment Summary Assessment Patient reporting 75% better with PT. Added seated ball squeeze, sit to stand, cues for core activation and correct form with standing hip ab and extension. Frequent rest breaks, limited progression due to lack of eating so far today, feeling tired. Encouraged use of pillow between knees when sleeping on side. Physical Therapy Plan Frequency and Duration Frequency of 2x/Week Treatment Duration of 12 treatment (weeks) Plan of Care Start 09/03/24 Date Plan of Care End 09/25/25 Date Next Visit Focus/Plan Next Note Type Progress Note Next Visit Plan Review sidelying hip ab, progress hip strengthening as tolerated, avoid overfatigue.
--- NOTE | 2024-10-04 18:33 | PT.OPPN ---
Current Diagnoses Unspecified disorder of synovium and tendon, left thigh (10/04/24) Physical Therapy Progress Note PT-OP-A Visit Information Start: 09/03/24 10:44 Freq: Status: Active Protocol: Document 10/04/24 13:52 BL (Rec: 10/04/24 14:30 BL Laptop) Out-Patient Physical Therapy Visit Information Visit Information Visit Type Progress Note Visit Start Time 13:02 Visit Stop Time 13:42 Visit Number 10 03/15 (PN by 11/04/24) Number of MILL AND COAL TRANSPORT OPERATOR Visits 0 PT-OP-C Subjective Start: 09/03/24 10:44 Freq: Status: Active Protocol: Document 10/04/24 13:52 BL (Rec: 10/04/24 14:30 BL Laptop) OP-PT Subjective Patient Comments Patient Comments Pt presents to the clinic this date and reports she is doing well, states overall very pleased with her progress, states she has been more tired this week. but can tell she is making improvements in her strength and mobility. Patient Reported Improving Progress PT-OP-F Manual Assessment Start: 09/03/24 10:44 Freq: Status: Active Protocol: Document 09/03/24 10:46 BL (Rec: 09/03/24 19:12 BL Laptop) Manual Assessments Other Manual Assessments Other Manual Pt demos level pelvis with equal leg lengths noted in Assessments supine. Pt is point tender over genaro ASIS with L>R. Pt also demos point tenderness through L glute medial area and TFL. Pt demos Trendelenburg gait with L sided lean . PT-OP-H Neuro Start: 09/03/24 10:44 Freq: Status: Active Protocol: Document 09/03/24 10:46 BL (Rec: 09/03/24 19:12 BL Laptop) Sensation Evaluation Comments Summary Comments Pt reports numbness to R foot that waxes and wanes, currently improving. Coordination Evaluation Comments Coordination Pt reports decreased coordination however demos normal Comments heel to headley genaro PT-OP-J Posture/Palpation/Skin Start: 09/03/24 10:44 Freq: Status: Active Protocol: Document 09/03/24 10:46 BL (Rec: 09/03/24 19:12 BL Laptop) Posture Evaluation Comments Posture Comments Pt sit with posterior pelvic tile and leans on arms in chair. Palpation Assessment Location left Palpation Details . PT-OP-K Range of Motion Start: 09/03/24 10:44 Freq: Status: Active Protocol: Document 09/03/24 10:46 BL (Rec: 09/03/24 19:12 BL Laptop) Hip Goniometric Range of Motion Hip Measured in Degrees right Hip ROM WFL Yes left Hip ROM WFL Yes Comments anterior tightness noted into end range of flexion Knee Goniometric Range of Motion Knee Measured in Degrees left/right Comments WFL Genaro PT-OP-M Strength Start: 09/03/24 10:44 Freq: Status: Active Protocol: Document 09/03/24 10:46 BL (Rec: 09/03/24 19:12 BL Laptop) Hip Strength Hip Manual Muscle Testing Right Flexion (L2) 4+ Good+ Abduction 4+ Good+ Adduction 4+ Good+ External Rotation 4+ Good+ Internal Rotation 4 Good Left Flexion (L2) 4 Good Abduction 4+ Good+ Adduction 4+ Good+ External Rotation 4 Good Internal Rotation 4 Good Knee Strength Knee Manual Muscle Testing Right Flexion (S2) 4+ Good+ Extension (L3) 4 Good Left Flexion (S2) 4+ Good+ Extension (L3) 4- Good- PT-OP-T Assessment and Plan Start: 09/03/24 10:44 Freq: Status: Active Protocol: Document 10/04/24 13:52 BL (Rec: 10/04/24 14:30 BL Laptop) Physical Therapy Assessment Goals Three Correction Goal (LTG) Pt will report being able to stand/walk greater than 30 minutes without increase in symptoms to 5/10 or higher by DC for improved functional mobility.(progressing) : pt states she can walk 10-15 minutes without increase in her symptoms this date. Two Correction Goal (LTG) Pt will demo improved hip extension strength to 4/5 by DC to improve hip arthrokinematics for improved function with ADLs. (Goal Met) One Short Term Goal (STG pt will be ind with HEP within 2 visits in order to ) progress toward garden equipment mechanic therapy goals outside of therapy sessions (goal met) Comb Capper Goal (LTG) Pt will demo improved LEFS score to 60% function or better by DC for improved quality of life. (progressing ) 10/04/24: pt reports improvement. Assessment Summary Assessment Pt continues to progress toward therapy goals and is making steady progress with less pain and improved mobility. Pt demos improved hip strength this date however continues to demo difficulty with endurance and will continue to benefit from skilled Physical Therapy intervention to address the above deficits for improved efficiency with mobility.
--- NOTE | 2024-10-08 10:44 | PT.OTN ---
Current Diagnoses Unspecified disorder of synovium and tendon, left thigh (10/08/24) Physical Therapy Treatment Note PT-OP-A Visit Information Start: 09/03/24 10:44 Freq: Status: Active Protocol: Document 10/08/24 09:50 AB (Rec: 10/08/24 10:44 AB [id number]) Out-Patient Physical Therapy Visit Information Visit Information Visit Type Treatment Note Visit Note Access Code: [email or web address] Visit Start Time 09:50 Visit Stop Time 10:32 Visit Number 11 2/10 (PN by 11/04/24) Number of MANAGER HOTEL Visits 1 Evaluation Information Evaluation Date 09/03/24 Precautions Precautions Patient restricted to 50 oz water intake per day. PT-OP-C Subjective Start: 09/03/24 10:44 Freq: Status: Active Protocol: Document 10/08/24 09:50 AB (Rec: 10/08/24 10:44 AB [id number]) OP-PT Subjective Patient Comments Patient Comments Patient reports she no longer has pain when she gets up in the morning or laying in bed, but does have increased pain post sitting, and does feel it when she steps out of care with L vs R. PT-OP-F Manual Assessment Start: 09/03/24 10:44 Freq: Status: Active Protocol: Document 09/03/24 10:46 BL (Rec: 09/03/24 19:12 BL Laptop) Manual Assessments Other Manual Assessments Other Manual Pt demos level pelvis with equal leg lengths noted in Assessments supine. Pt is point tender over hemal ASIS with L>R. Pt also demos point tenderness through L glute medial area and TFL. Pt demos Trendelenburg gait with L sided lean . PT-OP-H Neuro Start: 09/03/24 10:44 Freq: Status: Active Protocol: Document 09/03/24 10:46 BL (Rec: 09/03/24 19:12 BL Laptop) Sensation Evaluation Comments Summary Comments Pt reports numbness to R foot that waxes and wanes, currently improving. Coordination Evaluation Comments Coordination Pt reports decreased coordination however demos normal Comments heel to headley hemal PT-OP-J Posture/Palpation/Skin Start: 09/03/24 10:44 Freq: Status: Active Protocol: Document 09/03/24 10:46 BL (Rec: 09/03/24 19:12 BL Laptop) Posture Evaluation Comments Posture Comments Pt sit with posterior pelvic tile and leans on arms in chair. Palpation Assessment Location left Palpation Details . PT-OP-K Range of Motion Start: 09/03/24 10:44 Freq: Status: Active Protocol: Document 09/03/24 10:46 BL (Rec: 09/03/24 19:12 BL Laptop) Hip Goniometric Range of Motion Hip right Hip ROM WFL Yes left Hip ROM WFL Yes Comments anterior tightness noted into end range of flexion Knee Goniometric Range of Motion Knee left/right Comments WFL Hemal PT-OP-M Strength Start: 09/03/24 10:44 Freq: Status: Active Protocol: Document 09/03/24 10:46 BL (Rec: 09/03/24 19:12 BL Laptop) Hip Strength Hip Manual Muscle Testing Right Flexion (L2) 4+ Good+ Abduction 4+ Good+ Adduction 4+ Good+ External Rotation 4+ Good+ Internal Rotation 4 Good Left Flexion (L2) 4 Good Abduction 4+ Good+ Adduction 4+ Good+ External Rotation 4 Good Internal Rotation 4 Good Knee Strength Knee Manual Muscle Testing Right Flexion (S2) 4+ Good+ Extension (L3) 4 Good Left Flexion (S2) 4+ Good+ Extension (L3) 4- Good- PT-OP-Q Treatments Start: 09/03/24 10:44 Freq: Status: Active Protocol: Document 10/08/24 09:50 AB (Rec: 10/08/24 10:44 AB [id number]) Therapeutic Exercises Supine Exercises bridge Supine Exercise Name Lvl 4 band and heel digs ( level 4 bnd to HEP Reps/Minutes X15 without band then with level 4 band Comments vc stretch Supine Exercise Name Mod Giovani stretch, piriformis and figure 4 (reviewed) Side bilateral Reps/Minutes 60 sec X 1 fig 4 X 2 mod giovani and piriformis Piriformis to HEP Comments verbal cues Sidelying Exercises hip abd Sidelying Exercise clamshells with IR bias Name Side bilateral Equipment Used lvl 3 band Reps/Minutes X 15 X 2 Comments verbal cues, reports med to hard for L LE Sitting Exercises seated hip abd with band Side bilateral Resistance level 4 band Reps/Minutes one min X 1 for glute med activation Comments Patient reports no change in pain on stairs post glut med activation Standing Exercises hip extension Standing Exercise leaning on plinth at counter height HEP Name Side bilateral Equipment Used level 2 band Reps/Minutes X 15 Comments verbal and visual cues, set up to practice stepping from chair to counter PT-OP-R Modalities Start: 09/03/24 10:44 Freq: Status: Active Protocol: Document 09/25/24 09:45 AB (Rec: 09/25/24 10:46 AB [id number]) Hot Pack/Cold Pack Treatment ice pac Location L hip Patient Position Hooklying Patient Tolerance Good Comments X 15 min PT-OP-T Assessment and Plan Start: 09/03/24 10:44 Freq: Status: Active Protocol: Document 10/08/24 09:50 AB (Rec: 10/08/24 10:44 AB [id number]) Physical Therapy Assessment Goals Three Program Coordinator Goal (LTG) Pt will report being able to stand/walk greater than 30 minutes without increase in symptoms to 5/10 or higher by DC for improved functional mobility.(progressing) : pt states she can walk 10-15 minutes without increase in her symptoms this date. Two Fpc Goal (LTG) Pt will demo improved hip extension strength to 4/5 by DC to improve hip arthrokinematics for improved function with ADLs. (Goal Met) One Short Term Goal (STG pt will be ind with HEP within 2 visits in order to ) progress toward bending press operator therapy goals outside of therapy sessions (goal met) Program Coordinator Goal (LTG) Pt will demo improved LEFS score to 60% function or better by DC for improved quality of life. (progressing ) 10/04/24: pt reports improvement. Assessment Summary Assessment Patient cynthia increased band for seated hip add and band added for hip ext and bridge. Patient able to step to mat a table height with chair positioned as patient reports chair would be in place in home, safely without assist. Patient reports level 3 band for sidelying clamshell continues to be medium to med hard, unable to progress band for this exercise this session. Physical Therapy Plan Frequency and Duration Frequency of 2x/Week Treatment Duration of 12 treatment (weeks) Plan of Care Start 09/03/24 Date Plan of Care End 11/28/24 Date Next Visit Focus/Plan Next Note Type Treatment Note Next Visit Plan Review sidelying hip ab assess if able to progress to level 4, progress hip strengthening as tolerated, avoid overfatigue.
--- NOTE | 2024-10-18 11:31 | PT.OTN ---
Current Diagnoses Unspecified disorder of synovium and tendon, left thigh (10/18/24) Physical Therapy Treatment Note PT OP: Lower Back/Lower Extremity Start: 10/16/24 11:36 Freq: Status: Active Protocol: Document 10/18/24 10:53 BL (Rec: 10/18/24 11:31 BL Laptop) Out-Patient Physical Therapy Visit Information Visit Information Visit Type Treatment Note Visit Note 108/60 MAP 76 start of session Visit Start Time 10:45 Visit Stop Time 11:25 Visit Number 13 06/13 Number of PLUSH WEAVER Visits 0 Progress Note Due 11/04/24 Precautions Precautions Patient restricted to 50 oz water intake per day. OP-PT Subjective Patient Comments Patient Comments Pt presents to the clinic this date and reports she was quite sore Monday night but has had no pain the last two days otherwise. Has been pretty tired. States her BP was low this morning. Therapeutic Exercises Supine Exercises bridge Supine Exercise Name Lvl 4 band and heel digs ( level 4 bnd to HEP Reps/Minutes 15x Comments vc stretch Supine Exercise Name Mod Giovani stretch, piriformis and figure 4 (reviewed) Side bilateral Reps/Minutes 60 sec X 1 fig 4 X 2 mod giovani and piriformis Piriformis to HEP Comments verbal cues Sidelying Exercises hip abd Sidelying Exercise clamshells with IR bias Name Side bilateral Equipment Used lvl 3 band Reps/Minutes X 15 X 2 Comments verbal cues, reports med to hard for L LE Manual Therapy Treatment Soft Tissue Mobilization L hip Body Location glute/piriformis and illipsoas Mobilization Type Cross-Friction,Rolling,Other Intensity/Depth Moderate Body Position Hooklying Comments and sidelying also superficial pillow between knees; encouraged for sleeping on side Physical Therapy Assessment Goals Three Fdc Goal (LTG) Pt will report being able to stand/walk greater than 30 minutes without increase in symptoms to 5/10 or higher by DC for improved functional mobility.(progressing) : pt states she can walk 10-15 minutes without increase in her symptoms this date. Two Supervisor Elementary Education Goal (LTG) Pt will demo improved hip extension strength to 4/5 by DC to improve hip arthrokinematics for improved function with ADLs. (Goal Met) One Short Term Goal (STG pt will be ind with HEP within 2 visits in order to ) progress toward [facility] therapy goals outside of therapy sessions (goal met) Fdc Goal (LTG) Pt will demo improved LEFS score to 60% function or better by DC for improved quality of life. (progressing ) 10/04/24: pt reports improvement. Assessment Summary Assessment Pt tolerates session well this date with improved symptoms following. BP 104/64 at end of session. Continue to advance HEP per pt tolerance. Physical Therapy Plan Frequency and Duration Frequency of 2x/Week Treatment Duration of 12 treatment (weeks) Plan of Care Start 09/03/24 Date Plan of Care End 11/28/24 Date Next Visit Focus/Plan Next Note Type Treatment Note Next Visit Plan Review sidelying hip ab assess if able to progress to level 4, progress hip strengthening as tolerated, avoid overfatigue.
--- NOTE | 2024-10-23 10:42 | PT.OTN ---
Current Diagnoses Unspecified disorder of synovium and tendon, left thigh (10/23/24) Physical Therapy Treatment Note PT OP: Lower Back/Lower Extremity Start: 10/16/24 11:36 Freq: Status: Active Protocol: Document 10/23/24 09:52 AB (Rec: 10/23/24 10:42 AB [id number]) Out-Patient Physical Therapy Visit Information Visit Information Visit Type Treatment Note Visit Note Post breathing from diaphragm and manual therapy, pre exercise BP seated R UE 100/54 HR 74 seated L UE 93/51 HR 72 standing L UE 95/58 77 HR Visit Start Time 09:52 Visit Stop Time 10:36 Visit Number 14 5 Number of ROLL PLUGGER Visits 1 Progress Note Due 11/04/24 Precautions Precautions Patient restricted to 50 oz water intake per day. OP-PT Subjective Patient Comments Patient Comments Patient reports post last session with this therapist after all the walking had leg cramping that evening and took the next day to recover. Patient reports the hip felt better after and has felt better over the next few days. Therapeutic Exercises Supine Exercises breathing from diaphragm in mod rest pose Supine Exercise Name Modified restorative pose Reps/Minutes 2 min Comments verbal cues and pt ed use of self tactile cues for bridge Supine Exercise Name Lvl 4 band and heel digs ( level 4 bnd to HEP Reps/Minutes 15x Comments vc for breathing and monitored for pain stretch Supine Exercise Name Mod Darron and piriform Side left Reps/Minutes 60 sec each stretch Comments post manual Sidelying Exercises hip abd Sidelying Exercise clamshells with IR bias HEP Name Side bilateral Equipment Used lvl 4 band Reps/Minutes 18 Comments verbal cues, Patient reports the resistance(band) was fine Sitting Exercises sit to stand Resistance level 4 band Reps/Minutes X 10 X 2 Comments Verbal cues to increase hip hinge Standing Exercises sit to stand Resistance lvl 4 band Manual Therapy Treatment Consent Patient gave verbal Yes consent for manual treatment Soft Tissue Mobilization L hip Body Location glute/piriformis and illipsoas Mobilization Type Cross-Friction,Rolling,Other Intensity/Depth Moderate Body Position Hooklying Comments and sidelying also superficial pillow between knees; encouraged for sleeping on side Physical Therapy Assessment Goals Three Skilled Nursing Goal (LTG) Pt will report being able to stand/walk greater than 30 minutes without increase in symptoms to 5/10 or higher by DC for improved functional mobility.(progressing) : pt states she can walk 10-15 minutes without increase in her symptoms this date. Two Test Rider Goal (LTG) Pt will demo improved hip extension strength to 4/5 by DC to improve hip arthrokinematics for improved function with ADLs. (Goal Met) One Short Term Goal (STG pt will be ind with HEP within 2 visits in order to ) progress toward [facility] therapy goals outside of therapy sessions (goal met) Test Rider Goal (LTG) Pt will demo improved LEFS score to 60% function or better by DC for improved quality of life. (progressing ) 10/04/24: pt reports improvement. Assessment Summary Assessment Patient with good cynthia to increase to level 4 band with clamshell. Fatigue with exercise continues to be a problem. Physical Therapy Plan Frequency and Duration Frequency of 2x/Week Treatment Duration of 12 treatment (weeks) Plan of Care Start 09/03/24 Date Plan of Care End 11/28/24 Date Next Visit Focus/Plan Next Note Type Treatment Note Next Visit Plan , progress hip strengthening as tolerated, avoid overfatigue.
--- NOTE | 2024-10-25 10:42 | PT.OTN ---
Current Diagnoses Unspecified disorder of synovium and tendon, left thigh (10/25/24) Physical Therapy Treatment Note PT OP: Lower Back/Lower Extremity Start: 10/16/24 11:36 Freq: Status: Active Protocol: Document 10/25/24 09:21 AB (Rec: 10/25/24 10:42 AB [id number]) Out-Patient Physical Therapy Visit Information Visit Information Visit Type Treatment Note Visit Note BP L UE Seated 98/59 HR 72 BPM Visit Start Time 09:52 Visit Stop Time 10:32 Visit Number 15 08/13 Number of FOAM RUBBER MOLDER Visits 2 Progress Note Due 11/04/24 Precautions Precautions Patient restricted to 50 oz water intake per day. OP-PT Subjective Patient Comments Patient Comments Patient reports she didn't try the modified restorative pose with breathing from diaphragm. Patient reports feeling good start of session, reports having shoulder pain start of session 2/10 at rest L UE. Therapeutic Exercises Supine Exercises stretch Supine Exercise Name Mod Darron and piriform, fig 4 Side left Reps/Minutes 60 sec X 1 each stretch Comments post manual Sitting Exercises ball squeeze Equipment Used blue ball Reps/Minutes 10x Comments 5 sec hold verbal cues Standing Exercises calf stretches Standing Exercise Gastroc and soleus on HUGO Name Reps/Minutes X 2 each Comments verbal and visua cues pre amb with metronome due to scuffing w/ pace assesm glute med activation Standing Exercise HEP glute med isometric Name Reps/Minutes one min each LE Comments Verbal and visual cues Other Exercises 6 min walk, metronome Other Exercise Name Pace 30 sec 41 step pace scuffs foot X 2 Reps/Minutes metronome at 90 268 feet with scuffing started at 236 feet Comments supervision Gait Training Gait Activity SPC Description SPC education Comments adjusted height and cues for R UE placement and sequencing. Manual Therapy Treatment Consent Patient gave verbal Yes consent for manual treatment Soft Tissue Mobilization L hip Body Location glute/piriformis and illipsoas Mobilization Type Cross-Friction,Rolling,Other Intensity/Depth Moderate Body Position Hooklying Comments and sidelying also superficial pillow between knees; encouraged for sleeping on side Physical Therapy Assessment Goals Three Jail Goal (LTG) Pt will report being able to stand/walk greater than 30 minutes without increase in symptoms to 5/10 or higher by DC for improved functional mobility.(progressing) : pt states she can walk 10-15 minutes without increase in her symptoms this date. Two Language And Literature Division Chair Goal (LTG) Pt will demo improved hip extension strength to 4/5 by DC to improve hip arthrokinematics for improved function with ADLs. (Goal Met) One Short Term Goal (STG pt will be ind with HEP within 2 visits in order to ) progress toward intermodal customer service therapy goals outside of therapy sessions (goal met) Jail Goal (LTG) Pt will demo improved LEFS score to 60% function or better by DC for improved quality of life. (progressing ) 10/04/24: pt reports improvement. Assessment Summary Assessment Noted increased feet scuffing during assessment of pace , calf stretches prior to metronome walking with scuffing noted at 236 feet of ambulation this session. Physical Therapy Plan Frequency and Duration Frequency of 2x/Week Treatment Duration of 12 treatment (weeks) Plan of Care Start 09/03/24 Date Plan of Care End 11/28/24 Date Next Visit Focus/Plan Next Note Type Treatment Note Next Visit Plan Progress hip strengthening as tolerated, avoid overfatigue. Possibly use of Aleksandr exertion scale pre post metronome ambulation
--- NOTE | 2024-10-30 12:31 | PT.OTN ---
Current Diagnoses Unspecified disorder of synovium and tendon, left thigh (10/30/24) Physical Therapy Treatment Note PT OP: Lower Back/Lower Extremity Start: 10/16/24 11:36 Freq: Status: Active Protocol: Document 10/30/24 09:50 AB (Rec: 10/30/24 10:47 AB [id number]) Out-Patient Physical Therapy Visit Information Visit Information Visit Type Treatment Note Visit Note Seated YOAN L UE 93/54 HR 67 [id number] Visit Start Time 09:50 Visit Stop Time 10:47 Visit Number 16 7 Number of MOBILE PET GROOMER Visits 3 Progress Note Due 11/04/24 Precautions Precautions Patient restricted to 50 oz water intake per day. OP-PT Subjective Patient Comments Patient Comments Patient reports she didn't try the modified restorative pose with breathing from diaphragm. Patient reports she has been very busy has had a lot of company. Pt reports she got the reports of her tests last week and has neck and L shoulder arthritis. Patient reports having no pain start of session. Pt reports she is not perfect about exercises, but is better than she has ever been. Therapeutic Exercises Supine Exercises stretch Supine Exercise Name Mod Darron and piriform, fig 4 Side left Reps/Minutes 60 sec X 1 each stretch Comments post manual Sitting Exercises ball squeeze Equipment Used blue ball Reps/Minutes 10x Comments 5 sec hold verbal cues Standing Exercises calf stretches Standing Exercise Gastroc and soleus on HUGO and stairs and at wall Name Side bilateral Reps/Minutes X 1 each stretch each position Comments verbal and visua cues pre amb with metronome due to scuffing w/ pace assesm glute med activation Standing Exercise HEP glute med isometric Name Reps/Minutes one min each LE Comments Verbal and visual cues Other Exercises 6 min walk, metronome Reps/Minutes metronome 94 trial next session Physical Therapy Assessment Goals Three Assisted Goal (LTG) Pt will report being able to stand/walk greater than 30 minutes without increase in symptoms to 5/10 or higher by DC for improved functional mobility.(progressing) : pt states she can walk 10-15 minutes without increase in her symptoms this date. Two Assisted Goal (LTG) Pt will demo improved hip extension strength to 4/5 by DC to improve hip arthrokinematics for improved function with ADLs. (Goal Met) One Short Term Goal (STG pt will be ind with HEP within 2 visits in order to ) progress toward terminal makeup operator therapy goals outside of therapy sessions (goal met) Manager Building Goal (LTG) Pt will demo improved LEFS score to 60% function or better by DC for improved quality of life. (progressing ) 10/04/24: pt reports improvement. Assessment Summary Assessment BP 92/48 HR 68 seated L UE patient seated post reporting feeling dizzy post calf stretch and rating exertion 13 somewhat hard on Aleksandr scale 77/43 HR 76 BPM L UE. Patient seated and given H20 as reported only having coffee today. Post H20 and seated rest BP standing L UE 87/48 HR 73, post ~4 more min and more H20 standing L UE 89/51 HR 73 ( MAP 63.7) Physical Therapy Plan Frequency and Duration Frequency of 2x/Week Treatment Duration of 12 treatment (weeks) Plan of Care Start 09/03/24 Date Plan of Care End 11/28/24 Date Next Visit Focus/Plan Next Note Type Treatment Note Next Visit Plan Progress hip strengthening as tolerated, avoid overfatigue. Possibly use of Aleksandr exertion scale pre post metronome ambulation
--- NOTE | 2024-11-01 10:41 | PT.OPPN ---
Current Diagnoses Unspecified disorder of synovium and tendon, left thigh (11/01/24) Physical Therapy Progress Note PT OP: Lower Back/Lower Extremity Start: 10/16/24 11:36 Freq: Status: Active Protocol: Document 11/01/24 09:56 BL (Rec: 11/01/24 10:41 BL Laptop) Out-Patient Physical Therapy Visit Information Visit Information Visit Type Progress Note Visit Note Seated YOAN L UE 97/51, end of session 95/55 [id number] Visit Start Time 09:50 Visit Stop Time 10:30 Visit Number [id number] Number of ABRADING MACHINE TENDER Visits 3 Progress Note Due 11/25/24 Precautions Precautions Patient restricted to 50 oz water intake per day. OP-PT Subjective Patient Comments Patient Comments Pt presents to the clinic this date and reports she is doing well, reports improved symptoms in the hip. States she is very happy with her progress, continues to have slight difficulty after walking greater then 15 minutes. Therapeutic Exercises Sitting Exercises sit to stand Resistance lvl 3 band Comments 2x 10 ball squeeze Equipment Used blue ball Reps/Minutes 10x Comments 5 sec hold verbal cues seated hip abd with band Sitting Exercise w/ hip flexion Name Resistance lvl 3 band Comments 2x 10 Standing Exercises calf stretches Standing Exercise calf raises on step. Name Comments 2x 10 Physical Therapy Assessment Goals Three Operating Room Tech Goal (LTG) Pt will report being able to stand/walk greater than 30 minutes without increase in symptoms to 5/10 or higher by DC for improved functional mobility.(progressing) : pt states she can walk 10-15 minutes without increase in her symptoms this date. 11/01/24: pt reports 15-20 minutes this date. Two Intermediate Goal (LTG) Pt will demo improved hip extension strength to 4/5 by DC to improve hip arthrokinematics for improved function with ADLs. (Goal Met) One Short Term Goal (STG pt will be ind with HEP within 2 visits in order to ) progress toward fpc therapy goals outside of therapy sessions (goal met) Intermediate Goal (LTG) Pt will demo improved LEFS score to 60% function or better by DC for improved quality of life. (progressing ) 10/04/24: pt reports improvement. 11/01/24: pt reports improvement. Assessment Summary Assessment Pt continues to make slow progress in skilled PT intervention. Have been limited recently due to low BP with symptoms. Pt continues to tolerate advancement in HEP for hip and core stability without increase in symptoms. Pt continues to be limited in her endurance and will continue to benefit from skilled PT intervention for endurance and strength training. Physical Therapy Plan Frequency and Duration Frequency of 2x/Week Treatment Duration of 12 treatment (weeks) Plan of Care Start 09/03/24 Date Plan of Care End 11/28/24 Date Next Visit Focus/Plan Next Note Type Treatment Note Next Visit Plan Progress hip strengthening as tolerated, avoid overfatigue. Possibly use of Aleksandr exertion scale pre post metronome ambulation
--- NOTE | 2024-11-05 15:46 | PT.OTN ---
Current Diagnoses Unspecified disorder of synovium and tendon, left thigh (11/05/24) Physical Therapy Treatment Note PT OP: Lower Back/Lower Extremity Start: 10/16/24 11:36 Freq: Status: Active Protocol: Document 11/05/24 09:51 AB (Rec: 11/05/24 12:20 AB [id number]) Out-Patient Physical Therapy Visit Information Visit Information Visit Type Treatment Note Visit Note BP seated L UE 97/52 HR 65 BPM [id number] Visit Start Time 09:51 Visit Stop Time 10:37 Visit Number [id number] Number of SOIL FERTILITY EXTENSION SPECIALIST Visits 4 Progress Note Due 11/25/24 Precautions Precautions Patient restricted to 50 oz water intake per day. OP-PT Subjective Patient Comments Patient Comments Patient reports she feels good today. Patient reports she is pretty good with exercises, but didn't do them yesterday. Patient into session with band and request band is tied to correct tightness. Therapeutic Exercises Supine Exercises breathing from diaphragm in mod rest pose Supine Exercise Name Modified restorative pose Reps/Minutes 3-4 min Comments Verbal cues for use of self tactile cues bridge Supine Exercise Name Lvl 4 band and heel digs ( level 4 bnd to HEP Side bilateral Reps/Minutes 15x Comments assist with band stretch Supine Exercise Name Mod Darron and piriform, fig 4 Side left Reps/Minutes 60 sec X piriformis and fig 4, Giovani 60 sec x/ 2 with AROM knee flex X 10 Comments post manual Standing Exercises calf stretches Standing Exercise calf raises on step. also gastroc and soleus stretch Name Comments X 10 for heel raise, calf stretches 60 sec X 2 glute med activation Standing Exercise HEP glute med isometric Name Reps/Minutes one min each LE Comments Verbal and visual cues hip extension Standing Exercise leaning on plinth at counter height HEP Name Side bilateral Equipment Used level 2 band Reps/Minutes X 5 Comments verbal and visual cues, set up to practice stepping from chair to counter Other Exercises 6 min walk, metronome Reps/Minutes metronome 94 504 ft without device Comments noted inc respiratory rate and feels it ant L hip, but not pain ) Physical Therapy Assessment Goals Three Longterm Goal (LTG) Pt will report being able to stand/walk greater than 30 minutes without increase in symptoms to 5/10 or higher by DC for improved functional mobility.(progressing) : pt states she can walk 10-15 minutes without increase in her symptoms this date. 11/01/24: pt reports 15-20 minutes this date. Two Longterm Goal (LTG) Pt will demo improved hip extension strength to 4/5 by DC to improve hip arthrokinematics for improved function with ADLs. (Goal Met) One Short Term Goal (STG pt will be ind with HEP within 2 visits in order to ) progress toward nursing home therapy goals outside of therapy sessions (goal met) Longterm Goal (LTG) Pt will demo improved LEFS score to 60% function or better by DC for improved quality of life. (progressing ) 10/04/24: pt reports improvement. 11/01/24: pt reports improvement. Assessment Summary Assessment Patient reports having no L hip pain end of session( reported hip discomfort ~ 1/3 into metronome ambulation , declined stopping.) 104/59 HR 68 seated seated L UE in standing 91/55 HR 70 BPM reports having no dizziness . Physical Therapy Plan Frequency and Duration Frequency of 2x/Week Treatment Duration of 12 treatment (weeks) Plan of Care Start 09/03/24 Date Plan of Care End 11/28/24 Date Next Visit Focus/Plan Next Note Type Treatment Note Next Visit Plan Progress hip strengthening as tolerated, avoid overfatigue. Possibly use of Aleksandr exertion scale pre post metronome ambulation
--- NOTE | 2024-11-08 10:25 | PT.OTN ---
Current Diagnoses Unspecified disorder of synovium and tendon, left thigh (11/08/24) Physical Therapy Treatment Note PT OP: Lower Back/Lower Extremity Start: 10/16/24 11:36 Freq: Status: Active Protocol: Document 11/08/24 09:45 BL (Rec: 11/08/24 10:24 BL Laptop) Out-Patient Physical Therapy Visit Information Visit Information Visit Type Treatment Note Visit Note BP seated L UE 100/70 BP before session Visit Start Time 09:51 Visit Stop Time 10:37 Visit Number 18 11/13 Number of HEAD COOK Visits 4 Progress Note Due 11/25/24 Precautions Precautions Patient restricted to 50 oz water intake per day. OP-PT Subjective Patient Comments Patient Comments Pt presents to the clinic this date and reports she is doing well, states recent imaging showed a pinched nerve. Pt is waiting for a call back to set up an injection. Therapeutic Exercises Supine Exercises breathing from diaphragm in mod rest pose Supine Exercise Name Modified restorative pose Reps/Minutes 3-4 min Comments Verbal cues for use of self tactile cues bridge Supine Exercise Name Lvl 4 band and heel digs ( level 4 bnd to HEP Side bilateral Reps/Minutes 15x Comments assist with band stretch Supine Exercise Name Mod Darron and piriform, fig 4 Side left Reps/Minutes 60 sec X piriformis and fig 4, Giovani 60 sec x/ 2 with AROM knee flex X 10 Comments post manual Sitting Exercises sit to stand Resistance lvl 3 band Comments 2x 10 seated hip abd with band Sitting Exercise w/ hip flexion Name Resistance lvl 3 band Comments 2x 10 Physical Therapy Assessment Goals Three Toddler Teacher Goal (LTG) Pt will report being able to stand/walk greater than 30 minutes without increase in symptoms to 5/10 or higher by DC for improved functional mobility.(progressing) : pt states she can walk 10-15 minutes without increase in her symptoms this date. 11/01/24: pt reports 15-20 minutes this date. Two Toddler Teacher Goal (LTG) Pt will demo improved hip extension strength to 4/5 by DC to improve hip arthrokinematics for improved function with ADLs. (Goal Met) One Short Term Goal (STG pt will be ind with HEP within 2 visits in order to ) progress toward continuous churn buttermaker therapy goals outside of therapy sessions (goal met) Toddler Teacher Goal (LTG) Pt will demo improved LEFS score to 60% function or better by DC for improved quality of life. (progressing ) 10/04/24: pt reports improvement. 11/01/24: pt reports improvement. Assessment Summary Assessment Pt tolerates session well, discussed benefits of continuing PT to further improve LE strength and stability. Pt is able to tolerate advancement of HEP for hip abduction strength. Also continue to target endurance training. Physical Therapy Plan Frequency and Duration Frequency of 2x/Week Treatment Duration of 12 treatment (weeks) Plan of Care Start 09/03/24 Date Plan of Care End 11/28/24 Date Next Visit Focus/Plan Next Note Type Treatment Note Next Visit Plan Progress hip strengthening as tolerated, avoid overfatigue. Possibly use of Aleksandr exertion scale pre post metronome ambulation
--- NOTE | 2024-11-13 10:44 | PT.OTN ---
Current Diagnoses Unspecified disorder of synovium and tendon, left thigh (11/13/24) Physical Therapy Treatment Note PT OP: Lower Back/Lower Extremity Start: 10/16/24 11:36 Freq: Status: Active Protocol: Document 11/13/24 09:44 AB (Rec: 11/13/24 10:44 AB [id number]) Out-Patient Physical Therapy Visit Information Visit Information Visit Type Treatment Note Visit Note BP L UE seated start of session 100/59 HR 68 BPM start of session. [id number] Visit Start Time 09:52 Visit Stop Time 10:33 Visit Number 18 12/13 Number of TERMITE CONTROL SERVICER Visits 1 Progress Note Due 11/25/24 Precautions Precautions Patient restricted to 50 oz water intake per day. OP-PT Subjective Patient Comments Patient Comments Patient reports we have done miracles for her, plans to be discharged next session. Patient reports having no pain and would like to do the walking today. Patient reports she hasn't been using the SPC at home. Therapeutic Exercises Supine Exercises breathing from diaphragm in mod rest pose Supine Exercise Name Modified restorative pose Reps/Minutes 3-4 min Comments Verbal cues for use of self tactile cues stretch Supine Exercise Name Mod Darron and piriformis, fig 4 Side bilateral Reps/Minutes 60 sec each stretch each LE ex piriformis L X 2 Sidelying Exercises hip abd Sidelying Exercise hip abduction Name Side bilateral Reps/Minutes 15 Comments verbal and tactile cues for trunk position Standing Exercises glute med activation Standing Exercise HEP glute med isometric Name Reps/Minutes one min each LE Comments Verbal and visual cues Other Exercises 6 min walk, metronome Other Exercise Name without device Equipment Used *unsteady, but no SOB this session. Reps/Minutes metronome 94 700 feet Comments slightly unsteady ~20 feet into 4th lap and ~3/4 through reports feeling* Physical Therapy Assessment Goals Three Derrickman Helper Goal (LTG) Pt will report being able to stand/walk greater than 30 minutes without increase in symptoms to 5/10 or higher by DC for improved functional mobility.(progressing) : pt states she can walk 10-15 minutes without increase in her symptoms this date. 11/01/24: pt reports 15-20 minutes this date. Two Derrickman Helper Goal (LTG) Pt will demo improved hip extension strength to 4/5 by DC to improve hip arthrokinematics for improved function with ADLs. (Goal Met) One Short Term Goal (STG pt will be ind with HEP within 2 visits in order to ) progress toward care home therapy goals outside of therapy sessions (goal met) Derrickman Helper Goal (LTG) Pt will demo improved LEFS score to 60% function or better by DC for improved quality of life. (progressing ) 10/04/24: pt reports improvement. 11/01/24: pt reports improvement. Assessment Summary Assessment Patient with increased tolerance to ambulation without device 700 feet this session. Patient verbalizing ready to be discharged next session. HEP progressed reorganized handout as per patient request. Physical Therapy Plan Frequency and Duration Frequency of 2x/Week Treatment Duration of 12 treatment (weeks) Plan of Care Start 09/03/24 Date Plan of Care End 11/28/24 Date Next Visit Focus/Plan Next Note Type Discharge Summary Next Visit Plan Possibly discharge as per Patient verbalization. Possibly calf stretch at wall to HEP, review sidelying hip abd, possibly trial of level one band
--- NOTE | 2024-11-15 10:33 | PT.OPDS ---
Current Diagnoses Unspecified disorder of synovium and tendon, left thigh (11/15/24) Visit Care Team Role Provider Type Louis Gutierrez MD Family Provider Physician Primary Care Provider Specialty: Family Practice Address: [address] [place] [address], [id number] Email: [email or web address] Bernard Carrillo MD Attending Provider Physician Referring Provider Specialty: Orthopedics Orthopedic Surgery Address: [address] [place] [address], [address] Fax: Email: [email or web address] Visit Number Visit Number 18 12/13 Discharge Summary PT OP: Lower Back/Lower Extremity Start: 10/16/24 11:36 Freq: Status: Active Protocol: Document 11/15/24 09:39 BL (Rec: 11/15/24 10:32 BL Laptop) Out-Patient Physical Therapy Visit Information Visit Information Visit Type Discharge Summary Visit Note BP L UE seated start of session 106/52 HR 68 BPM start of session. Visit Start Time 09:45 Visit Stop Time 10:25 Visit Number 18 12/13 Number of FILLER MIXER Visits 1 Progress Note Due 11/25/24 Precautions Precautions Patient restricted to 50 oz water intake per day. OP-PT Subjective Patient Comments Patient Comments Pt presents to the clinic this date and reports she is doing well, states she is happy with her progress and feels she is ready for DC. Therapeutic Exercises Supine Exercises breathing from diaphragm in mod rest pose Supine Exercise Name Modified restorative pose (reviewed) Reps/Minutes 3-4 min Comments Verbal cues for use of self tactile cues bridge Supine Exercise Name Lvl 4 band and heel digs ( level 4 bnd to HEP Side bilateral Reps/Minutes 15x Comments assist with band stretch Supine Exercise Name Mod Darron and piriformis, fig 4 (reviewed) Side bilateral Reps/Minutes 60 sec each stretch each LE ex piriformis L X 2 Sidelying Exercises hip abd Sidelying Exercise hip abduction Name Side bilateral Reps/Minutes 15 Comments verbal and tactile cues for trunk position Standing Exercises calf stretches Standing Exercise gastroc stair stretch Name Comments 3x 30 sec Physical Therapy Assessment Goals Three Clinical Program Director Goal (LTG) Pt will report being able to stand/walk greater than 30 minutes without increase in symptoms to 5/10 or higher by DC for improved functional mobility.(Not Met) : pt states she can walk 10-15 minutes without increase in her symptoms this date. 11/01/24: pt reports 15-20 minutes this date. Two Fdc Goal (LTG) Pt will demo improved hip extension strength to 4/5 by DC to improve hip arthrokinematics for improved function with ADLs. (Goal Met) One Short Term Goal (STG pt will be ind with HEP within 2 visits in order to ) progress toward termite exterminator therapy goals outside of therapy sessions (goal met) Clinical Program Director Goal (LTG) Pt will demo improved LEFS score to 60% function or better by DC for improved quality of life. (Goal Met) : pt reports improvement. 11/01/24: pt reports improvement. 11/15/24: Pt demos 50 function this date. Assessment Summary Assessment Pt has made good progress in skilled Physical Therapy intervention, Pt demos improved mobility and strength and has met majority of therapy goals at this time. Pt is adequate for DC this date. Encouraged pt to continue to focus on endurance and strength training to further improve ADLs.
== END 2024-11-18 14:47 | disposition home or self-care (01) ==
LOC: PHYS 09:45
PROVIDERS: Family Provider Family Medicine; PCP Family Medicine; Referring Provider Orthopaedic Surgery Adult Reconstructive Orthopaedic Surgery; Visit Provider Orthopaedic Surgery Adult Reconstructive Orthopaedic Surgery
DX: M67.952 Unspecified disorder of synovium and tendon, left thigh (principal)
CPT/HCPCS: 97110; 97116; 97140; 97162

== ENCOUNTER 2024-11-26 13:25 | Outpatient (CLI) | payer MEDICARE, OTHER, SELFPAY ==
[2024-11-26] VITALS (9 sets, daily range): BP systolic 106–132; BP diastolic 51–66; PULSE 52–72; RESP 12–18; TEMP 36.6; O2SAT 98–100
[2024-11-26] MEDS: MIDAZOLAM 2 MG/2 ML VIAL 1 MG IV ×2 (14:30→14:40)
[2024-11-26] MEDS: LIDOCAINE 1% 20 ML 3 ML SUBCUT (14:34)
[2024-11-26] MEDS: BETAMETHASONE 30 MG/5 ML MDV 12 MG INJ (14:36)
--- NOTE | 2024-11-26 14:47 | P.PCN_ITS ---
Date/Time/Diagnoses Date of procedure: 11/26/24 Time of procedure: 14:47 Pre-procedure diagnosis: 1. FORAMINAL STENOSIS WITH LE SYMPTOMS Post-procedure diagnosis: same Procedure Notes Procedure: 1. FLUOROSCOPICALLY GUIDED CONTRAST CONTROLLED TRANSFORAMINAL EPIDURAL STEROID INJECTION - LEFT L4/5 Indications: Kim is referred by Dr. Gutierrez for treatment of Foraminal Stenosis with Left LE Symptoms Physician: Len Bravo Total Fluoroscopy time (seconds): 8 Total sedation minutes: 15 Complications: none Procedure in detail & Post-procedure care: FINDINGS Foraminal Nerve Root Compression secondary to disc disease and facet hypertrophy DESCRIPTION OF PROCEDURE Following review of allergy and review of potential side effects and complications, including, but not necessarily limited to, infection, allergic reaction, local tissue breakdown, stroke, temporary or permanent nerve injury, paralysis, and possible , the patient indicated that the patient understood and agreed to proceed. An informed consent document was signed by the patient, witnessed by a nurse, and placed in the patient's chart. Additionally, other treatment options including medications, modalities, and physical therapy were reviewed with the patient. After review of previous anaesthesic history and IV conscious sedation the patient was deemed safe to proceed with today?s procedure with IV conscious sedation as ASA class II designation. Safety time-out was performed to confirm patient ID, procedure to be performed and site of procedure. IV sedation was accomplished with a combination of 2mg of Versed administered by the RN after DO order, titrated to patient comfort during the course of the procedure while the patient remained responsive to all verbal commands In the prone position following sterile prep and drape of the lumbar region, the left L4/5 posterior neuroforamen was identified fluoroscopically. The skin was anesthetized via a 25-gauge 1.5-inch needle with 1% lidocaine solution. At this point, a 25-gauge 3.5-inch spinal needle was atraumatically introduced and advanced under fluoroscopic guidance through the posterior left L4/5 neuroforamen to approximately the anterior aspect of the canal. Depth was confirmed on lateral view. Following negative aspiration, injection of approximately 1.5 cc of Isovue 200 under live fluoroscopy in the AP view confirmed excellent flow along the nerve root, into the epidural space without vascular or intrathecal uptake observed Radiological data, including multiple fluoroscopic views of the lumbosacral spine, reveal a spinal needle at the left L4/5 posterior neuroforamen. Subsequent views show flow of contrast material flowing superiorly and inferiorly along the nerve root confirming epidural flow. Subsequently, a test dose of 1.5cc of 0.25% marcaine solution was administered and patient was observed for two minutes for signs or symptoms of complications, including abdominal pain, shortness of breath, bilateral upper or lower extremity weakness, nausea and vomiting, prior to steroid injection. At this point, a total of 3cc or 10mg of dexamethasone and 12mg of betamethasone was injected without incident. The procedure tolerated the procedure well without signs or symptoms of complications prior to transfer to the recovery area continued monitoring without incident. The patient was then transferred to the recovery area where they were observed for an appropriate time after the injection. The patient reported a VAS score of 7 prior to the procedure and a post- procedure VAS of 0. POST OP INSTRUCTIONS The patient was provided a Pain Log to continue to record their response to the target-specific procedure prior to follow-up visit with their referring physician. Additionally, specific post-injection care instructions and a contact number to our office were provided if concerns arise regarding possible complications associated with the procedure are suspected.
--- NOTE | 2024-11-26 14:48 | P.PCN_ITS ---
Date/Time/Diagnoses Date of procedure: 11/26/24 Time of procedure: 14:48 Pre-procedure diagnosis: 1. FORAMINAL STENOSIS WITH LE SYMPTOMS Post-procedure diagnosis: same Procedure Notes Procedure: 1. FLUOROSCOPICALLY GUIDED CONTRAST CONTROLLED TRANSFORAMINAL EPIDURAL STEROID INJECTION - Left L5/S1 Indications: Kim is referred by Dr. Gutierrez for treatment of Foraminal Stenosis with Left LE Symptoms Physician: Len Bravo Total Fluoroscopy time (seconds): 8 Total sedation minutes: 15 Complications: none Procedure in detail & Post-procedure care: FINDINGS Foraminal Nerve Root Compression secondary to disc disease and facet hypertrophy DESCRIPTION OF PROCEDURE Following review of allergy and review of potential side effects and complications, including, but not necessarily limited to, infection, allergic reaction, local tissue breakdown, stroke, temporary or permanent nerve injury, paralysis, and possible , the patient indicated that the patient understood and agreed to proceed. An informed consent document was signed by the patient, witnessed by a nurse, and placed in the patient's chart. Additionally, other treatment options including medications, modalities, and physical therapy were reviewed with the patient. After review of previous anaesthesic history and IV conscious sedation the patient was deemed safe to proceed with today?s procedure with IV conscious sedation as ASA class II designation. Safety time-out was performed to confirm patient ID, procedure to be performed and site of procedure. IV sedation was accomplished with a combination of 2mg of Versed was administered by the RN after DO order, titrated to patient comfort during the course of the procedure while the patient remained responsive to all verbal commands In the prone position following sterile prep and drape of the lumbar region, the Left L5/S1 posterior neuroforamen was identified fluoroscopically. The skin was anesthetized via a 25-gauge 1.5-inch needle with 1% lidocaine solution. At this point, a 25-gauge 3.5-inch spinal needle was atraumatically introduced and advanced under fluoroscopic guidance through the posterior Left L5/S1 neuroforamen to approximately the anterior aspect of the canal. Depth was confirmed on lateral view. Following negative aspiration, injection of approximately 1.5 cc of Isovue 200 under live fluoroscopy in the AP view confirmed excellent flow along the nerve root, into the epidural space without vascular or intrathecal uptake observed Radiological data, including multiple fluoroscopic views of the lumbosacral spine, reveal a spinal needle at the Left L5/S1 posterior neuroforamen. Subsequent views show flow of contrast material flowing superiorly and inferiorly along the nerve root confirming epidural flow. Subsequently, a test dose of 1.5cc of 0.25%marcaine solution was administered and patient was observed for two minutes for signs or symptoms of complications, including abdominal pain, shortness of breath, bilateral upper or lower extremity weakness, nausea and vomiting, prior to steroid injection. At this point, a total of 3cc or 10mg of dexamethasone and 12mg of betamethasone was injected without incident. The procedure tolerated the procedure well without signs or symptoms of complications prior to transfer to the recovery area continued monitoring without incident. The patient was then transferred to the recovery area where they were observed for an appropriate time after the injection. The patient reported a VAS score of 7 prior to the procedure and a post-procedure VAS of 0. POST OP INSTRUCTIONS The patient was provided a Pain Log to continue to record their response to the target-specific procedure prior to follow-up visit with their referring phys ician. Additionally, specific post-injection care instructions and a contact number to our office were provided if concerns arise regarding possible complications associated with the procedure are suspected.
== END 2024-11-26 15:05 | disposition home or self-care (01) ==
PROVIDERS: Family Provider Family Medicine; PCP Family Medicine; Referring Provider Physical Medicine & Rehabilitation; Visit Provider Physical Medicine & Rehabilitation
DX: M48.061 Spinal stenosis, lumbar region without neurogenic claudication (principal); M48.07 Spinal stenosis, lumbosacral region; M51.16 Intervertebral disc disorders with radiculopathy, lumbar region; M51.17 Intervertebral disc disorders with radiculopathy, lumbosacral region; M47.26 Other spondylosis with radiculopathy, lumbar region; M47.27 Other spondylosis with radiculopathy, lumbosacral region
CPT/HCPCS: 64483; 64484; 99152; J0702; J1100; J2250

== ENCOUNTER → 2024-12-18 09:33 | Outpatient (CLI) | payer MEDICARE, OTHER, SELFPAY | LOC: CAR 09:34 | PROVIDERS: Family Provider Family Medicine; PCP Family Medicine; Referring Provider Family Medicine; Visit Provider Family Medicine | DX: R00.2 Palpitations (principal) | CPT/HCPCS: 93242 ==

== ENCOUNTER → 2024-12-27 13:01 | Outpatient (CLI) | payer MEDICARE, OTHER, SELFPAY ==
--- NOTE | 2024-12-27 13:03 | DI.CT.S_ITS ---
PROCEDURE: CT ABDOMEN LIVER PROTOCOL INDICATIONS: Cirrhosis of liver with ascites TECHNIQUE: 4 phase scanning was performed. Non-contrast 5 mm axial sections acquired from the diaphragm to the iliac crests. Following the administration of intravenous contrast, 5 mm thick arterial-phase, portal venous-phase, and 5-minute delayed phase images were acquired through the liver. 5 mm thick coronal and sagittal reformats were performed. For radiation dose reduction, the following was used: automated exposure control, adjustment of mA and/or kV according to patient size. COMPARISON: [facility], CT, CT ABDOMEN PELVIS W CON, 12/14/2023, 17:32. FINDINGS: Image quality: Diagnostic Lower chest: Lung bases appear unremarkable. Periesophageal varices are present Heart size is at the upper limit of normal. Liver: Cirrhotic liver. Tips in place. The main portal vein appears patent. The left portal vein however appears diminutive. No discrete hypervascular lesion arterial phase imaging. There are small calcified granulomas Gallbladder and biliary system: Under distended gallbladder. CBD measures 6 mm, upper limit of normal Pancreas: No ductal dilation Spleen: Splenic granulomas borderline splenomegaly at 13 cm Adrenals: No discrete nodules Kidneys: No solid mass. No hydronephrosis. The left kidney is not fully seen Vessels and lymph nodes: Upper abdominal portal venous varices. No enlarged lymph nodes by size criteria. Prominent upper abdominal and periportal lymph nodes are nonspecific, possibly reactive Bowel and peritoneum: No bowel obstruction. [id number] gastric distention. No drainable ascites Trace perihepatic fluid Body wall: Unremarkable Bones: No aggressive appearing osseous abnormality. Degenerative changes are seen. IMPRESSION: Cirrhosis with TIPS. The main portal vein appears patent. The left portal vein however appears diminutive. No obvious thrombus in the stent. Consider Doppler ultrasound to further assess if clinically necessary No suspicious hypervascular parenchymal lesion identified. Recommend continued HCC screening. No significant ascites. Trace perihepatic fluid is present. 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 on 12/27/2024 at 14:43 Approved by: Ramakrishna Diane M.D. on 12/27/2024 at 14:52
== END ==
LOC: CT 13:02
PROVIDERS: Family Provider Family Medicine; PCP Family Medicine; Referring Provider Internal Medicine Gastroenterology; Visit Provider Internal Medicine Gastroenterology
DX: K74.60 Unspecified cirrhosis of liver (principal); R18.8 Other ascites; Z95.828 Presence of other vascular implants and grafts
CPT/HCPCS: 74170; Q9967